=== PATIENT | male | born 1990 | race Two or more races ===

== ENCOUNTER 2022-01-19 21:27 | Inpatient (IN) | payer OTHER, SELFPAY ==
[2022-01-19 21:50] VITALS: BP 155/107; PULSE 89; RESP 16; TEMP 36.6; O2SAT 99; BMI 33.3
--- NOTE | 2022-01-19 22:29 | PC.NURSE ---
Ray Jimenez signed a 3-day notice on 01/19/22 up on 01/24/22.
--- NOTE | 2022-01-19 22:46 | PC.ADMIT ---
Pt is a 32y/o male admitted on CV from [facility] for inpatient level of care. Pt is experiencing increased depression following a recent DC from medical admission on 01/17/22 for Methadone Poisoning. Pt is alert and oriented X3. VSS except elevated BP-155/108, Pt reports his blood pressure has been trending up. Covid negative, Tox screen positive for cannabis. Pt presents with flat mood. Speech is regular with normal rhythm, tone, and candi. Pt reports that he needs help finding providers. Pt denies SI/HI/AH/VH. Admission orders obtained.
[2022-01-20 08:30] LABS: Cholesterol 275 mg/dL; HDL Cholesterol 37 mg/dL; LDL Cholesterol Calculated 215 mg/dl; Magnesium 2.1 mg/dL (1.6-2.6); Triglycerides 118 mg/dL
[2022-01-20 08:40] VITALS: BP 162/105; PULSE 81; RESP 16; TEMP 36.3; O2SAT 96
[2022-01-20] MEDS: hydroCHLOROthiazide 25 MG TABLET PO (08:41)
[2022-01-20] MEDS: QUEtiapine Fumarate 50 MG TABLET PO (08:41)
[2022-01-20] MEDS: Sertraline HCL 25 MG TABLET PO (08:41)
[2022-01-20 08:42] LABS: Estimated Average Glucose 114 mg/dL; Hemoglobin A1c % 5.6 %
[2022-01-20 08:50] LABS: Free T4 (Free Thyroxine) 1.14 ng/dL (0.71-1.85); Thyroid Stimulating Hormone 2.02 uIU/mL (0.32-4.0)
[2022-01-20 09:36] LABS: Folate 5.7 ng/mL (> or = 4.0); Vitamin B12 482 pg/mL (200-900)
--- NOTE | 2022-01-20 11:21 | P.CONIM_ITS ---
History of Present Illness Data of Consult Service Date: 01/20/22 Primary Care Provider: Unknown Physician HPI Reason for consult: Routine Medical H&P This is a 32 yo M who endorses no significant medical history. He is admitted to . Medical consult requested for routine medical H&P. Pt seen and examined in the exam room. His BP has been high since he has been admitted. He denies any symptoms of elevated BP. He reports that his blood pressure is always high, even at doctors office visits. It has been this way for several years. He denies any FH of HTN PMH Denies a diagnosis of HTN, but BP readings elevated previously PSH Denies SH Denies tobacco, alcohol, or current illicit substance use FH Denies history of HTN, particularly at a young age Review of Systems Review of Systems: negative except HPI PMFSH Social History Household Members: Family Housing: Apartment Do you presently have visiting nurse or other home services: No Patient Tobacco Use Status: Former Tobacco user Smoked in Last 30 Days: No e-Cigarette/Vaping Use: Former Use Patient Interested in Nicotine Replacement: No Patient Given Instructions on How to Stop Smoking: Yes Date Education Initiated: 01/19/22 Second Hand Smoke Exposure: No Substance Use Type: Marijuana Substance Use Frequency: Occasionally Last Used Substance: Weeks (ago) Currently Displaying Signs/Symptoms of Drug Intoxication Withdrawal: No Any prior treatment program specific to substance use: No Have you been hit, kicked, punched, or otherwise hurt by someone within the past year? If so, by whom?: No Do you feel safe in your current relationship?: No Current Relationship Is there a partner from a previous relationship who is making you feel unsafe now?: No Are you made to feel afraid or neglected: No Spiritual Healthcare Practices: N/A Cheondoism Healthcare Practices: N/A Cultural Healthcare Practices: N/A Advance Directives: No Advance Directives Information Provided: No Advance Directives on File: No Do you have thoughts of harming others: None Do you have a plan to hurt others: No Plan Recently lost weight without trying: No Eating poorly because of decreased appetite: No Nutrition Risks: No Nutritional Risk Poor oral hygiene: No Meds Allergies Allergy/AdvReac Type Severity Reaction Status Date / Time No Known Allergies Allergy Verified 01/19/22 21:38 Active Medications: Current Medications Acetaminophen (Acetaminophen 325 Mg Tablet) 650 mg PO Q6H PRN PRN Reason: Headache/Pain Mild Scale (1-3) Al Hydroxide/Mg Hydroxide (Magnesium Hydrox/Alum Hydrox 30 Ml Oral.Susp) 30 ml PO Q6H PRN PRN Reason: Heartburn/Nausea Hydrochlorothiazide (Hydrochlorothiazide 25 Mg Tablet) 25 mg PO DAILY [facility]; Protocol Last Admin: 01/20/22 08:41 Dose: 25 mg Documented by: Hydroxyzine HCl (Hydroxyzine Hcl 25 Mg Tablet) 25 mg PO Q6H PRN PRN Reason: Anxiety Magnesium Hydroxide (Milk Of Magnesia 30 Ml Oral.Susp) 30 ml PO DAILY PRN PRN Reason: Constipation Quetiapine Fumarate (Quetiapine Fumarate 50 Mg Tablet) 50 mg PO DAILY [facility] Last Admin: 01/20/22 08:41 Dose: 50 mg Documented by: Sertraline HCl (Sertraline Hcl 25 Mg Tablet) 25 mg PO DAILY [facility] Last Admin: 01/20/22 08:41 Dose: 25 mg Documented by: Trazodone HCl (Trazodone Hcl 50 Mg Tablet) 50 mg PO BEDTIME PRN PRN Reason: Insomnia Home Medications Medication Instructions Recorded Confirmed Last Taken Type hydroxyzine HCl 25 mg tablet 1 tab PO BID PRN 01/19/22 01/19/22 Unknown History quetiapine 100 mg tablet 2 tab PO BEDTIME 01/19/22 01/19/22 Unknown History quetiapine 100 mg tablet (Seroquel) 2 tab PO BEDTIME 01/19/22 01/19/22 Unknown History quetiapine 50 mg tablet 1 tab PO QAM 01/19/22 01/19/22 Unknown History quetiapine 50 mg tablet (Seroquel) 1 tab PO QAM 01/19/22 01/19/22 Unknown History sertraline 25 mg tablet 1 tab PO QAM 01/19/22 01/19/22 Unknown History sertraline 25 mg tablet (Zoloft) 1 tab PO QAM 01/19/22 01/19/22 Unknown History Physical Exam Vital Signs and Narrative: Vital Signs: Last Vital Signs Temp 97.4 F 01/20/22 08:40 Pulse 81 01/20/22 08:40 Resp 16 01/20/22 08:40 BP 162/105 H 01/20/22 08:40 Pulse Ox 96 01/20/22 08:40 BMI result Body Mass Index 33.3 Const: Other: General - no acute distress, appears comfortable Cardiovascular - regular rate and rhythm, S1-S2 Lungs - normal respiratory effort, clear to auscultation bilaterally, no wheezing Abdomen - soft, nontender, no rebound or guarding Extremities - no edema bilaterally Neuro - awake and alert, no focal deficits; cn 2-12 in tact Results Labs Labs: Laboratory Results - last 24 hr 01/20/22 01/20/22 01/20/22 07:57 07:57 07:57 Estimat Average Glucose 114 Hemoglobin A1c % 5.6 Magnesium 2.1 Triglycerides 118 Cholesterol 275 LDL Cholesterol, Calc 215 HDL Cholesterol 37 Vitamin B12 482 Folate 5.7 TSH 2.02 Free T4 1.14 Assessment and Plan (1) Hypertension: Status: Acute Plan 32 yo M who reports no significant medical history admitted to . Medical consult requested for routine medical H&P. 1. Hypertension Pt does not have a prior diagnosis of the same but clearly has elevated readings currently and by his history in the past. He will willing to start Norvasc 5mg. He will need outpatient f/u with a PCP for further monitoring and titration He has also been encouraged to lose weight which will help his BP. Please monitor BP while here and if remains persistently above 140/90 or if he endorses symptoms of BP -- please reconsult. He must f/u with a medical provider once discharged. Will sign off. Please consult PRN. Thank you.
[2022-01-20 12:40] VITALS: BP 134/95; PULSE 104
[2022-01-20] MEDS: amLODIPine Besylate 5 MG TABLET PO (12:42)
--- NOTE | 2022-01-20 16:07 | ECG_ITS ---
Test Reason : cp Blood Pressure : / mmHG Vent. Rate : 109 BPM Atrial Rate : 109 BPM P-R Int : 156 ms QRS Dur : 100 ms QT Int : 364 ms P-R-T Axes : 062 019 045 degrees QTc Int : 490 ms Sinus tachycardia Possible Left atrial enlargement Borderline ECG No previous ECGs available Referred By: Zeus Mckeon Electronically Signed By:DINORAH FULLER
[2022-01-20 16:17] VITALS: BP 120/75; PULSE 138; RESP 16; TEMP 35.9; O2SAT 98
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
--- NOTE | 2022-01-20 16:50 | PM.EVENT ---
Event Note Date of Service: 01/20/22 Event Note: Patient reported to have left side chest pain reported as tightness with associated anxiety and feeling panicky Went to bed to lie down which helped. also received a dose of atarax and symptoms are improving Patient noted to be tachycardic but at time of EKG, HR had improved. EKG reviewed, no ischemic changes, sinus tachycardia Blood pressure under adequate control. no cough. non-pleuritic. reproducible pain on exam. likely r/t anxiety. if chest pain recurs can consider further workup HR improving, but if significant tachycardia persists would consider cbc to rule out anemia. TSH wnl, pt afebrile
[2022-01-20] MEDS: hydrOXYzine HCL 25 MG TABLET PO (17:30)
[2022-01-20 18:17] LABS: Troponin-I High Sensitivity 4.1 ng/L (<3.5-35.0)
[2022-01-20] MEDS: Divalproex Sodium 250 MG TABLET.DR PO (20:01)
[2022-01-21 06:00] VITALS: BP 118/72; PULSE 98; RESP 18; TEMP 36.3; O2SAT 98
[2022-01-21] MEDS: QUEtiapine Fumarate 50 MG TABLET PO (08:19)
[2022-01-21] MEDS: hydroCHLOROthiazide 25 MG TABLET PO (08:19)
[2022-01-21] MEDS: Sertraline HCL 25 MG TABLET PO (08:19)
[2022-01-21] MEDS: amLODIPine Besylate 5 MG TABLET PO (08:19)
[2022-01-21] MEDS: Divalproex Sodium 250 MG TABLET.DR PO ×2 (08:19→20:58)
[2022-01-21 08:27] VITALS: BP 136/73; PULSE 77
--- NOTE | 2022-01-21 08:39 | P.PNPSI_ITS ---
Subjective Subjective Date of Service: 01/21/22 Reason For Visit: Depression Subjective Notes: 3 Day Healthcare Proxy: No Guardianship: No Interim History: Patient was seen and discussed in rounds today. He has been pleasant but isolative. He was started on Depakote. He denies any side effects. Eating and sleeping adequately. No symptoms of psychosis. No complaints. No changes were made today. I may increase his Depakote tomorrow Medication Compliance: Yes Side effects from medications: No Attending Groups: Intermittent Review of Systems Review of Systems Yes all other systems are reviewed and are negative Mental Status Exam Mental Status Exam Narrative: In today's visit he is alert, oriented and pleasant. Speech is soft-spoken. Moderate eye contact. Affect is constricted and flat. Mood is depressed. No acute signs of psychosis. No delusions. No SI upon inquiry. Cognitively he has slow thought processes, circumstantial. Judgment is intact Diagnostics Vital Signs (24Hr): Vital Signs - 24 hr 01/20/22 12:40 01/20/22 16:17 01/21/22 06:00 Temperature 96.7 F L 97.4 F Pulse Rate 104 H 138 H 98 Respiratory Rate 16 18 Blood Pressure 134/95 H 120/75 118/72 Pulse Oximetry 98 98 01/21/22 08:27 Temperature Pulse Rate 77 Respiratory Rate Blood Pressure 136/73 Pulse Oximetry BMI result Body Mass Index 33.3 Labs Labs: Laboratory Results - last 48 hr 01/20/22 01/20/22 01/20/22 07:57 07:57 07:57 Estimat Average Glucose 114 Hemoglobin A1c % 5.6 Magnesium 2.1 Troponin I High Sens Triglycerides 118 Cholesterol 275 LDL Cholesterol, Calc 215 HDL Cholesterol 37 Vitamin B12 482 Folate 5.7 TSH 2.02 Free T4 1.14 01/20/22 17:39 Estimat Average Glucose Hemoglobin A1c % Magnesium Troponin I High Sens 4.1 Triglycerides Cholesterol LDL Cholesterol, Calc HDL Cholesterol Vitamin B12 Folate TSH Free T4 Medications Medications Current Medications Acetaminophen (Acetaminophen 325 Mg Tablet) 650 mg PO Q6H PRN PRN Reason: Headache/Pain Mild Scale (1-3) Al Hydroxide/Mg Hydroxide (Magnesium Hydrox/Alum Hydrox 30 Ml Oral.Susp) 30 ml PO Q6H PRN PRN Reason: Heartburn/Nausea Amlodipine Besylate (Amlodipine Besylate 5 Mg Tablet) 5 mg PO DAILY [facility]; Protocol Last Admin: 01/21/22 08:19 Dose: 5 mg Documented by: Divalproex Sodium (Divalproex Sodium 250 Mg Tablet.) 250 mg PO BID [facility] Last Admin: 01/21/22 08:19 Dose: 250 mg Documented by: Hydrochlorothiazide (Hydrochlorothiazide 25 Mg Tablet) 25 mg PO DAILY [facility]; Protocol Last Admin: 01/21/22 08:19 Dose: 25 mg Documented by: Hydroxyzine HCl (Hydroxyzine Hcl 25 Mg Tablet) 25 mg PO Q6H PRN PRN Reason: Anxiety Last Admin: 01/20/22 17:30 Dose: 25 mg Documented by: Lorazepam (Lorazepam 0.5 Mg Tablet) 0.5 mg PO Q4H PRN PRN Reason: Anxiety Magnesium Hydroxide (Milk Of Magnesia 30 Ml Oral.Susp) 30 ml PO DAILY PRN PRN Reason: Constipation Quetiapine Fumarate (Quetiapine Fumarate 50 Mg Tablet) 50 mg PO DAILY [facility] Last Admin: 01/21/22 08:19 Dose: 50 mg Documented by: Sertraline HCl (Sertraline Hcl 25 Mg Tablet) 25 mg PO DAILY [facility] Last Admin: 01/21/22 08:19 Dose: 25 mg Documented by: Trazodone HCl (Trazodone Hcl 50 Mg Tablet) 50 mg PO BEDTIME PRN PRN Reason: Insomnia Allergies Allergies Allergy/AdvReac Type Severity Reaction Status Date / Time No Known Allergies Allergy Verified 01/19/22 21:38 Assessment & Plan Assessment & Plan (1) Bipolar disorder: Status: Acute Code(s): F31.9 - Bipolar disorder, unspecified Plan 32 yo male with hx of bipolar disorder with increased sx of depression over the past two months, since 6 year relationship ended with girlfriend. Recently seen by crisis and was waiting for CSS in the living room. Became confused and went to a [facility], responded to anothers name and took Methadone for the first time, requiring medical hospitalization for Methadone poisoning. Today, pt is exhibiting sadness, tearful at times, crying at times and later today with reports of chest pain. Plan: Continue current regime Lorazepam prn Depakote 250 mg bid 01/21/2022: Continue current regimen and plans. I may increase his Depakote tomorrow I spent minutes with the patient and/or on the patient floor today, greater than?50% of which was spent counseling/coordinating care. Reason for contiued inpatient stay Substantial Risk for: med/psych decompensation
[2022-01-21 14:17] LABS: Troponin-I High Sensitivity < 3.5 ng/L (<3.5-35.0)
[2022-01-21 20:50] VITALS: BP 144/86; PULSE 106; TEMP 36.6
[2022-01-22] MEDS: Divalproex Sodium 250 MG TABLET.DR PO (09:00)
[2022-01-22] MEDS: hydroCHLOROthiazide 25 MG TABLET PO (09:01)
[2022-01-22] MEDS: amLODIPine Besylate 5 MG TABLET PO (09:01)
[2022-01-22] MEDS: QUEtiapine Fumarate 50 MG TABLET PO (09:01)
[2022-01-22] MEDS: Sertraline HCL 25 MG TABLET PO (09:02)
[2022-01-22 09:20] VITALS: BP 133/91; PULSE 95; TEMP 36.4; O2SAT 96
--- NOTE | 2022-01-22 09:36 | P.PNPSI_ITS ---
Subjective Subjective Date of Service: 01/22/22 Reason For Visit: Depression Subjective Notes: 3 Day Healthcare Proxy: No Guardianship: No Medical Problems Affecting Mental Status: No Interim History: Patient was seen and discussed in rounds today. Records and plans were reviewed. He continues to be somewhat isolative and have some anxiety. He states that he is not crying much anymore and feels a little more ?balanced?. He asked about his 3 day notice but states that he would stay longer if recommended. He will discuss this with his treatment team tomorrow. He denies any side effects. Eating and sleeping adequately. I increased his Zoloft to 50 mg Review of Systems Review of Systems Yes all other systems are reviewed and are negative Mental Status Exam Mental Status Exam Narrative: In today's visit he is alert, oriented and pleasant. Speech is soft-spoken. Bettereye contact. Affect is constricted and flat. Mood is less depressed. No acute signs of psychosis. No delusions. No SI upon inquiry. Cognitively he has slow thought processes, circumstantial. Judgment is intact Diagnostics Vital Signs (24Hr): Vital Signs - 24 hr 01/21/22 20:50 01/22/22 09:20 Temperature 97.8 F 97.6 F Pulse Rate 106 H 95 Blood Pressure 144/86 H 133/91 H Pulse Oximetry 96 BMI result Body Mass Index 33.3 Labs Labs: Laboratory Results - last 48 hr 01/20/22 01/20/22 01/21/22 07:57 17:39 13:48 Troponin I High Sens 4.1 < 3.5 Vitamin B12 482 Folate 5.7 Medications Medications Current Medications Acetaminophen (Acetaminophen 325 Mg Tablet) 650 mg PO Q6H PRN PRN Reason: Headache/Pain Mild Scale (1-3) Al Hydroxide/Mg Hydroxide (Magnesium Hydrox/Alum Hydrox 30 Ml Oral.Susp) 30 ml PO Q6H PRN PRN Reason: Heartburn/Nausea Amlodipine Besylate (Amlodipine Besylate 5 Mg Tablet) 5 mg PO DAILY [facility]; Protocol Last Admin: 01/22/22 09:01 Dose: 5 mg Documented by: Divalproex Sodium (Divalproex Sodium 250 Mg Tablet.) 250 mg PO BID [facility] Last Admin: 01/22/22 09:00 Dose: 250 mg Documented by: Hydrochlorothiazide (Hydrochlorothiazide 25 Mg Tablet) 25 mg PO DAILY [facility]; Protocol Last Admin: 01/22/22 09:01 Dose: 25 mg Documented by: Hydroxyzine HCl (Hydroxyzine Hcl 25 Mg Tablet) 25 mg PO Q6H PRN PRN Reason: Anxiety Last Admin: 01/20/22 17:30 Dose: 25 mg Documented by: Lorazepam (Lorazepam 0.5 Mg Tablet) 0.5 mg PO Q4H PRN PRN Reason: Anxiety Magnesium Hydroxide (Milk Of Magnesia 30 Ml Oral.Susp) 30 ml PO DAILY PRN PRN Reason: Constipation Quetiapine Fumarate (Quetiapine Fumarate 50 Mg Tablet) 50 mg PO DAILY [facility] Last Admin: 01/22/22 09:01 Dose: 50 mg Documented by: Sertraline HCl (Sertraline Hcl 25 Mg Tablet) 25 mg PO DAILY [facility] Last Admin: 01/22/22 09:02 Dose: 25 mg Documented by: Trazodone HCl (Trazodone Hcl 50 Mg Tablet) 50 mg PO BEDTIME PRN PRN Reason: Insomnia Allergies Allergies Allergy/AdvReac Type Severity Reaction Status Date / Time No Known Allergies Allergy Verified 01/19/22 21:38 Assessment & Plan Assessment & Plan (1) Bipolar disorder: Status: Acute Code(s): F31.9 - Bipolar disorder, unspecified Plan 32 yo male with hx of bipolar disorder with increased sx of depression over the past two months, since 6 year relationship ended with girlfriend. Recently seen by crisis and was waiting for CSS in the living room. Became confused and went to a [facility], responded to anothers name and took Methadone for the first time, requiring medical hospitalization for Methadone poisoning. Today, pt is exhibiting sadness, tearful at times, crying at times and later today with reports of chest pain. Plan: Continue current regime Lorazepam prn Depakote 250 mg bid 01/21/2022: Continue current regimen and plans. I may increase his Depakote tomorrow 01/22/2022: Continue current regimen and plans. Increase Zoloft to 50 mg and Depakote to 750 mg q.h.s. I spent minutes with the patient and/or on the patient floor today, greater than?50% of which was spent counseling/coordinating care. Patient educated on: medication risk/benefits Reason for contiued inpatient stay Substantial Risk for: med/psych decompensation
[2022-01-22 10:24] LABS: Valproate 22.9 mcg/mL (50.0-100.0)
[2022-01-22 18:00] VITALS: BP 115/68; PULSE 102; TEMP 36.7
[2022-01-22] MEDS: Divalproex Sodium 250 MG TABLET.DR 750 MG PO (20:11)
[2022-01-22] MEDS: traZODone HCL 50 MG TABLET PO (20:29)
[2022-01-23 06:00] VITALS: BP 129/76; PULSE 81; RESP 16; TEMP 36.6; O2SAT 99
[2022-01-23] MEDS: hydroCHLOROthiazide 25 MG TABLET PO (08:35)
[2022-01-23] MEDS: QUEtiapine Fumarate 50 MG TABLET PO (08:35)
[2022-01-23] MEDS: amLODIPine Besylate 5 MG TABLET PO (08:35)
[2022-01-23] MEDS: Sertraline HCL 50 MG TABLET PO (08:35)
--- NOTE | 2022-01-23 17:15 | HO.PSYCHPN ---
Subjective Subjective Date of Service: 01/23/22 Reason For Visit: Depression Interim History: Patient seen and discussed with team. Patient evaluated today and upon interview he reports the depakote is jie too strong, but he does admit he has been sleeping more with it, getting 8-10 hours, and that he spent too many days without sleeping prior to admission and he became another person. Willing to give it time on current depakote dose, will monitor for sedation. Says he is feeling less anxiety than what i used to have. Pt does report there?s one that makes me tired in the morning, would like to trial off seroquel 50 mg QAM.?VPA level was 22.9 on 01/22/22. In the milieu, patient is safe and appropriate in behavior. Says he feels safe. Medication Compliance: Yes Side effects from medications: Yes Attending Groups: Intermittent Review of Systems Acute medical concerns: No Medical Review of Systems: unchanged Mental Status Exam Mental Status Exam Narrative: Patient Appearance:?Appropriate Patient Orientation:?Person, Place, Time and Situation Level of Consciousness:?Alert Patient Behavior:?Talkative, Cooperative, Anxious, Distractible and Good Eye Contact Mood Description:?Depressed, Anxious and Sad Affect Description:?Flat Patient Cognition Impaired:?No Ability to Follow Directions:?Good Speech Pattern:?Spontaneous Speech Memory Description:?Remote Impaired and Episodic Impaired Hallucinations:?None Delusions:?Not Present Perceptual Disturbances:?Depersonalization and Derealization Thought Process:?Rumination Thought Content:?positive for [place], positive for Circumstantial and positive for Suicidal Ideation Depressive Symptoms:?Increased Anxiety, Insomnia, Diff. Making Decisions, Difficulty Sleeping, Changes in Appetite, Loss of Int. in Activity, Feelings of Worthlessness, Hopelessness, Isolating-Friends/Family, Feelings of Guilt, Unhappiness, Increased Fatigue, Thoughts of /Suicide, Low Self Esteem, Loss of Energy and Difficulty Concentrating Judgement:?Fair Diagnostics Vital Signs (24Hr): Vital Signs - 24 hr 01/22/22 18:00 01/23/22 06:00 Temperature 98.1 F 98 F Pulse Rate 102 H 81 Respiratory Rate 16 Blood Pressure 115/68 129/76 Pulse Oximetry 99 BMI result Body Mass Index 33.3 Labs Labs: Laboratory Results - last 48 hr 01/22/22 09:57 Valproic Acid 22.9 L Medications Medications Current Medications Acetaminophen (Acetaminophen 325 Mg Tablet) 650 mg PO Q6H PRN PRN Reason: Headache/Pain Mild Scale (1-3) Al Hydroxide/Mg Hydroxide (Magnesium Hydrox/Alum Hydrox 30 Ml Oral.Susp) 30 ml PO Q6H PRN PRN Reason: Heartburn/Nausea Amlodipine Besylate (Amlodipine Besylate 5 Mg Tablet) 5 mg PO DAILY [facility]; Protocol Last Admin: 01/23/22 08:35 Dose: 5 mg Documented by: Divalproex Sodium (Divalproex Sodium 250 Mg Tablet.) 750 mg PO BEDTIME [facility] Last Admin: 01/22/22 20:11 Dose: 750 mg Documented by: Hydrochlorothiazide (Hydrochlorothiazide 25 Mg Tablet) 25 mg PO DAILY [facility]; Protocol Last Admin: 01/23/22 08:35 Dose: 25 mg Documented by: Hydroxyzine HCl (Hydroxyzine Hcl 25 Mg Tablet) 25 mg PO Q6H PRN PRN Reason: Anxiety Last Admin: 01/20/22 17:30 Dose: 25 mg Documented by: Lorazepam (Lorazepam 0.5 Mg Tablet) 0.5 mg PO Q4H PRN PRN Reason: Anxiety Magnesium Hydroxide (Milk Of Magnesia 30 Ml Oral.Susp) 30 ml PO DAILY PRN PRN Reason: Constipation Quetiapine Fumarate (Quetiapine Fumarate 50 Mg Tablet) 50 mg PO DAILY [facility] Last Admin: 01/23/22 08:35 Dose: 50 mg Documented by: Sertraline HCl (Sertraline Hcl 50 Mg Tablet) 50 mg PO DAILY [facility] Last Admin: 01/23/22 08:35 Dose: 50 mg Documented by: Trazodone HCl (Trazodone Hcl 50 Mg Tablet) 50 mg PO BEDTIME PRN PRN Reason: Insomnia Last Admin: 01/22/22 20:29 Dose: 50 mg Documented by: Allergies Allergies Allergy/AdvReac Type Severity Reaction Status Date / Time No Known Allergies Allergy Verified 01/19/22 21:38 Assessment & Plan Assessment & Plan (1) Bipolar disorder: Status: Acute Code(s): F31.9 - Bipolar disorder, unspecified Plan 32 yo male with hx of bipolar disorder with increased sx of depression over the past two months, since 6 year relationship ended with girlfriend. Recently seen by crisis and was waiting for CSS in the living room. Became confused and went to a [facility], responded to anothers name and took Methadone for the first time, requiring medical hospitalization for Methadone poisoning. Today, pt is exhibiting sadness, tearful at times, crying at times and later today with reports of chest pain. Plan: Continue current regime Lorazepam prn Depakote 250 mg bid 01/21/2022: Continue current regimen and plans. I may increase his Depakote tomorrow 01/22/2022: Continue current regimen and plans. Increase Zoloft to 50 mg and Depakote to 750 mg q.h.s. 01/23/2022: Continue current plan. Discontinue seroquel 50 mg QD due to pt reporting sedation. I spent minutes with the patient and/or on the patient floor today, greater than?50% of which was spent counseling/coordinating care. Patient educated on: medication risk/benefits Reason for contiued inpatient stay Substantial Risk for: rapid decompensation and med/psych decompensation
[2022-01-23 18:00] VITALS: BP 130/76; PULSE 92; RESP 16; TEMP 36.5
[2022-01-23] MEDS: Divalproex Sodium 250 MG TABLET.DR 750 MG PO (20:06)
[2022-01-24 06:00] VITALS: BP 146/83; PULSE 81; RESP 16; TEMP 36.2; O2SAT 97
[2022-01-24] MEDS: Sertraline HCL 50 MG TABLET PO (08:07)
[2022-01-24] MEDS: hydroCHLOROthiazide 25 MG TABLET PO (08:07)
[2022-01-24] MEDS: QUEtiapine Fumarate 25 MG TABLET PO (08:07)
[2022-01-24] MEDS: amLODIPine Besylate 5 MG TABLET PO (08:07)
--- NOTE | 2022-01-24 18:41 | P.PNPSI_ITS ---
Subjective Subjective Date of Service: 01/24/22 Reason For Visit: Depression Interim History: Patient seen and discussed with team. Patient evaluated today and upon interview he reports it went well for me today, sedation is better off seroquel. Says he is feeling down, but not depressed. Says he is sleeping better at the hospital, thinks this helps, say he feels he is getting back to himself. He endorses some delusional, bizarre believes, i.e. says it feels like clara a couple times. He is also laughing incongruently. Says he wants to get his mind straight. Pt reports I jie dont like zoloft. In the milieu, patient is safe, more visible in the milieu. Denies SI/SIB/HI upon inquiry. Denies irritability or assaultive ideation. Says he feels safe. Medication Compliance: Yes Side effects from medications: No Attending Groups: Intermittent Review of Systems Acute medical concerns: No Medical Review of Systems: unchanged Mental Status Exam Mental Status Exam Narrative: Patient Appearance:?Appropriate Patient Orientation:?Person, Place, Time and Situation Level of Consciousness:?Alert Patient Behavior:?Appropriate, Talkative, Cooperative and Good Eye Contact Mood Description:?Apprehensive Affect Description:?Constricted Patient Cognition Impaired:?No Ability to Follow Directions:?Good Speech Pattern:?Spontaneous Speech Memory Description:?Intact Hallucinations:?None Delusions:?Not Present Thought Process:?Intact and Goal Oriented Thought Content:?positive for Intact and positive for Goal Oriented Judgment:?Good Diagnostics Vital Signs (24Hr): Vital Signs - 24 hr 01/24/22 06:00 Temperature 97.2 F Pulse Rate 81 Respiratory Rate 16 Blood Pressure 146/83 H Pulse Oximetry 97 BMI result Body Mass Index 33.3 Medications Medications Current Medications Acetaminophen (Acetaminophen 325 Mg Tablet) 650 mg PO Q6H PRN PRN Reason: Headache/Pain Mild Scale (1-3) Al Hydroxide/Mg Hydroxide (Magnesium Hydrox/Alum Hydrox 30 Ml Oral.Susp) 30 ml PO Q6H PRN PRN Reason: Heartburn/Nausea Amlodipine Besylate (Amlodipine Besylate 5 Mg Tablet) 5 mg PO DAILY [facility]; Protocol Last Admin: 01/24/22 08:07 Dose: 5 mg Documented by: Divalproex Sodium (Divalproex Sodium 250 Mg Tablet.) 750 mg PO BEDTIME [facility] Last Admin: 01/23/22 20:06 Dose: 750 mg Documented by: Hydrochlorothiazide (Hydrochlorothiazide 25 Mg Tablet) 25 mg PO DAILY [facility]; Protocol Last Admin: 01/24/22 08:07 Dose: 25 mg Documented by: Hydroxyzine HCl (Hydroxyzine Hcl 25 Mg Tablet) 25 mg PO Q6H PRN PRN Reason: Anxiety Last Admin: 01/20/22 17:30 Dose: 25 mg Documented by: Lorazepam (Lorazepam 0.5 Mg Tablet) 0.5 mg PO Q4H PRN PRN Reason: Anxiety Magnesium Hydroxide (Milk Of Magnesia 30 Ml Oral.Susp) 30 ml PO DAILY PRN PRN Reason: Constipation Quetiapine Fumarate (Quetiapine Fumarate 25 Mg Tablet) 25 mg PO DAILY [facility] Last Admin: 01/24/22 08:07 Dose: 25 mg Documented by: Sertraline HCl (Sertraline Hcl 50 Mg Tablet) 50 mg PO DAILY [facility] Last Admin: 01/24/22 08:07 Dose: 50 mg Documented by: Trazodone HCl (Trazodone Hcl 50 Mg Tablet) 50 mg PO BEDTIME PRN PRN Reason: Insomnia Last Admin: 01/22/22 20:29 Dose: 50 mg Documented by: Allergies Allergies Allergy/AdvReac Type Severity Reaction Status Date / Time No Known Allergies Allergy Verified 01/19/22 21:38 Assessment & Plan Assessment & Plan (1) Bipolar disorder: Status: Acute Code(s): F31.9 - Bipolar disorder, unspecified Plan 32 yo male with hx of bipolar disorder with increased sx of depression over the past two months, since 6 year relationship ended with girlfriend. Recently seen by crisis and was waiting for CSS in the living room. Became confused and went to a [facility], responded to anothers name and took Methadone for the first time, requiring medical hospitalization for Methadone poisoning. Today, pt is exhibiting sadness, tearful at times, crying at times and later today with reports of chest pain. Plan: Continue current regime Lorazepam prn Depakote 250 mg bid 01/21/2022: Continue current regimen and plans. I may increase his Depakote tomorrow 01/22/2022: Continue current regimen and plans. Increase Zoloft to 50 mg and Depakote to 750 mg q.h.s. 01/23/2022: Continue current plan. Discontinue seroquel 50 mg QD due to pt reporting sedation. 01/24/2022: Discontinue zoloft 50 mg per pt request, may also be activating. Will start risperdal 0.5 mg BID to target delusional, bizarre thought content, hx of psychotic episode and paranoia. I spent minutes with the patient and/or on the patient floor today, greater than?50% of which was spent counseling/coordinating care. Patient educated on: medication risk/benefits Reason for contiued inpatient stay Substantial Risk for: inability to function, rapid decompensation and med/psych decompensation
[2022-01-24] MEDS: Divalproex Sodium 250 MG TABLET.DR 750 MG PO (20:46)
[2022-01-24] MEDS: traZODone HCL 50 MG TABLET PO (20:47)
[2022-01-24] MEDS: risperiDONE 0.5 MG TABLET PO (20:47)
[2022-01-24 20:55] VITALS: BP 148/90; PULSE 95; TEMP 35.7; O2SAT 96
[2022-01-25] MEDS: hydroCHLOROthiazide 25 MG TABLET PO (08:37)
[2022-01-25] MEDS: risperiDONE 0.5 MG TABLET PO (08:37)
[2022-01-25] MEDS: amLODIPine Besylate 5 MG TABLET PO (08:38)
[2022-01-25 08:39] VITALS: BP 128/75; PULSE 77; RESP 18; TEMP 36.3; O2SAT 99
[2022-01-25 21:00] VITALS: BP 139/85; PULSE 116; TEMP 36.2; O2SAT 98
[2022-01-25] MEDS: Divalproex Sodium 250 MG TABLET.DR 750 MG PO (21:39)
[2022-01-25] MEDS: risperiDONE 1 MG TABLET PO (21:40)
--- NOTE | 2022-01-26 00:21 | P.PNPSI_ITS ---
Subjective Subjective Date of Service: 01/25/22 Reason For Visit: Depression Interim History: Patient seen and discussed with team. Patient evaluated today and upon interview he reports it is going alright. On risperdal 0.5 mg BID, denies SE, I dont feel anything. Denies withdrawal off sertraline. Says he is thinking more straight now, Feels he can chill for a moment. Energy is better. Still feels a little bit depressed. Says if he is not doing anything or keeping busy, he feels worse.? In the milieu, patient is safe and more visible in the milieu. Says he feels safe. Medication Compliance: Yes Side effects from medications: No Attending Groups: Intermittent Review of Systems Acute medical concerns: No Medical Review of Systems: unchanged Mental Status Exam Mental Status Exam Narrative: Patient Appearance:?Appropriate Patient Orientation:?Person, Place, Time and Situation Level of Consciousness:?Alert Patient Behavior:?Appropriate, Talkative, Cooperative and Good Eye Contact Mood Description:?Apprehensive Affect Description:?Constricted Patient Cognition Impaired:?No Ability to Follow Directions:?Good Speech Pattern:?Spontaneous Speech Memory Description:?Intact Hallucinations:?None Delusions:?Not Present Thought Process:?Intact and Goal Oriented Thought Content:?positive for Intact and positive for Goal Oriented Judgment:?Good Diagnostics Vital Signs (24Hr): Vital Signs - 24 hr 01/25/22 08:39 Temperature 97.4 F Pulse Rate 77 Respiratory Rate 18 Blood Pressure 128/75 Pulse Oximetry 99 BMI result Body Mass Index 33.3 Medications Medications Current Medications Acetaminophen (Acetaminophen 325 Mg Tablet) 650 mg PO Q6H PRN PRN Reason: Headache/Pain Mild Scale (1-3) Al Hydroxide/Mg Hydroxide (Magnesium Hydrox/Alum Hydrox 30 Ml Oral.Susp) 30 ml PO Q6H PRN PRN Reason: Heartburn/Nausea Amlodipine Besylate (Amlodipine Besylate 5 Mg Tablet) 5 mg PO DAILY [facility]; Protocol Last Admin: 01/25/22 08:38 Dose: 5 mg Documented by: Divalproex Sodium (Divalproex Sodium 250 Mg Tablet.) 750 mg PO BEDTIME [facility] Last Admin: 01/25/22 21:39 Dose: 750 mg Documented by: Hydrochlorothiazide (Hydrochlorothiazide 25 Mg Tablet) 25 mg PO DAILY [facility]; Protocol Last Admin: 01/25/22 08:37 Dose: 25 mg Documented by: Hydroxyzine HCl (Hydroxyzine Hcl 25 Mg Tablet) 25 mg PO Q6H PRN PRN Reason: Anxiety Last Admin: 01/20/22 17:30 Dose: 25 mg Documented by: Loperamide HCl (Loperamide Hcl 2 Mg Capsule) 2 mg PO Q6H PRN PRN Reason: diarrhea Magnesium Hydroxide (Milk Of Magnesia 30 Ml Oral.Susp) 30 ml PO DAILY PRN PRN Reason: Constipation Risperidone (Risperidone 1 Mg Tablet) 1 mg PO BEDTIME [facility] Last Admin: 01/25/22 21:40 Dose: 1 mg Documented by: Risperidone (Risperidone 0.5 Mg Tablet) 0.5 mg PO DAILY [facility] Trazodone HCl (Trazodone Hcl 50 Mg Tablet) 50 mg PO BEDTIME PRN PRN Reason: Insomnia Last Admin: 01/24/22 20:47 Dose: 50 mg Documented by: Allergies Allergies Allergy/AdvReac Type Severity Reaction Status Date / Time No Known Allergies Allergy Verified 01/19/22 21:38 Assessment & Plan Assessment & Plan (1) Bipolar disorder: Status: Acute Code(s): F31.9 - Bipolar disorder, unspecified Plan 32 yo male with hx of bipolar disorder with increased sx of depression over the past two months, since 6 year relationship ended with girlfriend. Recently seen by crisis and was waiting for CSS in the living room. Became confused and went to a [facility], responded to anothers name and took Methadone for the first time, requiring medical hospitalization for Methadone poisoning. Today, pt is exhibiting sadness, tearful at times, crying at times and later today with reports of chest pain. Plan: Continue current regime Lorazepam prn Depakote 250 mg bid 01/21/2022: Continue current regimen and plans. I may increase his Depakote tomorrow 01/22/2022: Continue current regimen and plans. Increase Zoloft to 50 mg and Depakote to 750 mg q.h.s. 01/23/2022: Continue current plan. Discontinue seroquel 50 mg QD due to pt reporting sedation. 01/24/2022: Discontinue zoloft 50 mg per pt request, may also be activating. Will start risperdal 0.5 mg BID to target delusional, bizarre thought content, hx of psychotic episode and paranoia. 01/25/2022: Increase ripserdal to 0.5 mg QAM and 1 mg QHS to target delusional thought content. I spent minutes with the patient and/or on the patient floor today, greater than?50% of which was spent counseling/coordinating care. Patient educated on: medication risk/benefits Reason for contiued inpatient stay Substantial Risk for: inability to function, rapid decompensation and med/psych decompensation
[2022-01-26 08:45] VITALS: BP 127/76; PULSE 98; TEMP 36.3
[2022-01-26] MEDS: hydroCHLOROthiazide 25 MG TABLET PO (09:07)
[2022-01-26] MEDS: amLODIPine Besylate 5 MG TABLET PO (09:08)
[2022-01-26] MEDS: risperiDONE 0.5 MG TABLET PO (09:08)
--- NOTE | 2022-01-26 15:36 | HO.PSYCHPN ---
Subjective Subjective Date of Service: 01/26/22 Reason For Visit: Depression Subjective Notes: Conditional Voluntary Healthcare Proxy: No Guardianship: No Medical Problems Affecting Mental Status: No Interim History: Reports feeling improved however with mid-day and afternoon breakthrough sx of lability. Discussed titration of Risperdal and Valproate. Medication Compliance: Yes Side effects from medications: No Attending Groups: Intermittent Review of Systems Acute medical concerns: No Medical Review of Systems: unchanged Review of Systems Psychiatric: Reports irritability and Reports mood swings Mental Status Exam Mental Status Exam Patient Appearance: Appropriate Patient Orientation: Person, Place, Time and Situation Level of Consciousness: Alert Patient Behavior: Appropriate, Talkative, Cooperative and Good Eye Contact Mood Description: Apprehensive Affect Description: Constricted Patient Cognition Impaired: No Ability to Follow Directions: Good Speech Pattern: Spontaneous Speech Memory Description: Intact Hallucinations: None Delusions: Not Present Thought Process: Intact and Goal Oriented Thought Content: positive for Intact and positive for Goal Oriented Judgement: Good Diagnostics Vital Signs (24Hr): Vital Signs - 24 hr 01/25/22 21:00 01/26/22 08:45 Temperature 97.2 F 97.3 F Pulse Rate 116 H 98 Blood Pressure 139/85 127/76 Pulse Oximetry 98 BMI result Body Mass Index 33.3 Medications Medications Current Medications Acetaminophen (Acetaminophen 325 Mg Tablet) 650 mg PO Q6H PRN PRN Reason: Headache/Pain Mild Scale (1-3) Al Hydroxide/Mg Hydroxide (Magnesium Hydrox/Alum Hydrox 30 Ml Oral.Susp) 30 ml PO Q6H PRN PRN Reason: Heartburn/Nausea Amlodipine Besylate (Amlodipine Besylate 5 Mg Tablet) 5 mg PO DAILY [facility]; Protocol Last Admin: 01/26/22 09:08 Dose: 5 mg Documented by: Divalproex Sodium (Divalproex Sodium 250 Mg Tablet.) 750 mg PO BEDTIME [facility] Last Admin: 01/25/22 21:39 Dose: 750 mg Documented by: Hydrochlorothiazide (Hydrochlorothiazide 25 Mg Tablet) 25 mg PO DAILY [facility]; Protocol Last Admin: 01/26/22 09:07 Dose: 25 mg Documented by: Hydroxyzine HCl (Hydroxyzine Hcl 25 Mg Tablet) 25 mg PO Q6H PRN PRN Reason: Anxiety Last Admin: 01/20/22 17:30 Dose: 25 mg Documented by: Loperamide HCl (Loperamide Hcl 2 Mg Capsule) 2 mg PO Q6H PRN PRN Reason: diarrhea Magnesium Hydroxide (Milk Of Magnesia 30 Ml Oral.Susp) 30 ml PO DAILY PRN PRN Reason: Constipation Risperidone (Risperidone 1 Mg Tablet) 1 mg PO BEDTIME [facility] Last Admin: 01/25/22 21:40 Dose: 1 mg Documented by: Risperidone (Risperidone 0.5 Mg Tablet) 0.5 mg PO DAILY [facility] Last Admin: 01/26/22 09:08 Dose: 0.5 mg Documented by: Trazodone HCl (Trazodone Hcl 50 Mg Tablet) 50 mg PO BEDTIME PRN PRN Reason: Insomnia Last Admin: 01/24/22 20:47 Dose: 50 mg Documented by: Allergies Allergies Allergy/AdvReac Type Severity Reaction Status Date / Time No Known Allergies Allergy Verified 01/19/22 21:38 Assessment & Plan Assessment & Plan (1) Bipolar disorder: Status: Acute Code(s): F31.9 - Bipolar disorder, unspecified Plan 32 yo male with hx of bipolar disorder with increased sx of depression over the past two months, since 6 year relationship ended with girlfriend. Recently seen by crisis and was waiting for CSS in the living room. Became confused and went to a [facility], responded to anothers name and took Methadone for the first time, requiring medical hospitalization for Methadone poisoning. Today, pt is exhibiting sadness, tearful at times, crying at times and later today with reports of chest pain. Plan: Continue current regime Lorazepam prn Depakote 250 mg bid 01/21/2022: Continue current regimen and plans. I may increase his Depakote tomorrow 01/22/2022: Continue current regimen and plans. Increase Zoloft to 50 mg and Depakote to 750 mg q.h.s. 01/23/2022: Continue current plan. Discontinue seroquel 50 mg QD due to pt reporting sedation. 01/26/22: Increase Risperdal to 1 mg bid and add Valproate 500 mg a.m. I spent minutes with the patient and/or on the patient floor today, greater than?50% of which was spent counseling/coordinating care. Patient educated on: medication risk/benefits and therapeutic strategies Informed Consent: understands and further education needed Reason for contiued inpatient stay Substantial Risk for: rapid decompensation
[2022-01-26 20:14] VITALS: BP 162/90; PULSE 94
[2022-01-26] MEDS: Divalproex Sodium 250 MG TABLET.DR 750 MG PO (20:18)
[2022-01-26] MEDS: risperiDONE 1 MG TABLET PO (20:19)
[2022-01-27 06:00] VITALS: BP 121/73; PULSE 107; RESP 16; TEMP 36.3; O2SAT 95
[2022-01-27] MEDS: Divalproex Sodium 500 MG TABLET.DR PO (09:07)
[2022-01-27] MEDS: risperiDONE 1 MG TABLET PO ×2 (09:07→19:50)
[2022-01-27] MEDS: amLODIPine Besylate 5 MG TABLET PO (09:07)
[2022-01-27] MEDS: hydroCHLOROthiazide 25 MG TABLET PO (09:07)
[2022-01-27] MEDS: Loperamide HCl 2 MG CAPSULE PO ×2 (16:28→22:45)
[2022-01-27 19:16] VITALS: BP 118/77; PULSE 107
--- NOTE | 2022-01-27 19:30 | P.PNPSI_ITS ---
Subjective Subjective Date of Service: 01/27/22 Reason For Visit: Depression Subjective Notes: Conditional Voluntary Healthcare Proxy: No Guardianship: No Medical Problems Affecting Mental Status: No Interim History: Reports tolerating medication increases. Planning discharge for 01/30. Denies current SE. Medication Compliance: Yes Side effects from medications: No (adjusting to increase in dosing from 01/26/22) Attending Groups: Yes Review of Systems Acute medical concerns: No Medical Review of Systems: unchanged Review of Systems Psychiatric: Reports irritability and Reports mood swings Mental Status Exam Mental Status Exam Patient Appearance: Appropriate Patient Orientation: Person, Place, Time and Situation Level of Consciousness: Alert Patient Behavior: Appropriate, Talkative, Cooperative and Good Eye Contact Mood Description: Apprehensive Affect Description: Constricted Patient Cognition Impaired: No Ability to Follow Directions: Good Speech Pattern: Spontaneous Speech Memory Description: Intact Hallucinations: None Delusions: Not Present Thought Process: Intact and Goal Oriented Thought Content: positive for Intact and positive for Goal Oriented Judgement: Good Diagnostics Vital Signs (24Hr): Vital Signs - 24 hr 01/26/22 20:14 01/27/22 06:00 01/27/22 19:16 Temperature 97.4 F Pulse Rate 94 107 H 107 H Respiratory Rate 16 Blood Pressure 162/90 H 121/73 118/77 Pulse Oximetry 95 BMI result Body Mass Index 33.3 Medications Medications Current Medications Acetaminophen (Acetaminophen 325 Mg Tablet) 650 mg PO Q6H PRN PRN Reason: Headache/Pain Mild Scale (1-3) Al Hydroxide/Mg Hydroxide (Magnesium Hydrox/Alum Hydrox 30 Ml Oral.Susp) 30 ml PO Q6H PRN PRN Reason: Heartburn/Nausea Amlodipine Besylate (Amlodipine Besylate 5 Mg Tablet) 5 mg PO DAILY [facility]; Protocol Last Admin: 01/27/22 09:07 Dose: 5 mg Documented by: Divalproex Sodium (Divalproex Sodium 250 Mg Tablet.) 750 mg PO BEDTIME [facility] Last Admin: 01/26/22 20:18 Dose: 750 mg Documented by: Divalproex Sodium (Divalproex Sodium 500 Mg Tablet.) 500 mg PO DAILY [facility] Last Admin: 01/27/22 09:07 Dose: 500 mg Documented by: Hydrochlorothiazide (Hydrochlorothiazide 25 Mg Tablet) 25 mg PO DAILY [facility]; Protocol Last Admin: 01/27/22 09:07 Dose: 25 mg Documented by: Hydroxyzine HCl (Hydroxyzine Hcl 25 Mg Tablet) 25 mg PO Q6H PRN PRN Reason: Anxiety Last Admin: 01/20/22 17:30 Dose: 25 mg Documented by: Loperamide HCl (Loperamide Hcl 2 Mg Capsule) 2 mg PO Q6H PRN PRN Reason: diarrhea Last Admin: 01/27/22 16:28 Dose: 2 mg Documented by: Magnesium Hydroxide (Milk Of Magnesia 30 Ml Oral.Susp) 30 ml PO DAILY PRN PRN Reason: Constipation Risperidone (Risperidone 1 Mg Tablet) 1 mg PO BID [facility] Last Admin: 01/27/22 09:07 Dose: 1 mg Documented by: Trazodone HCl (Trazodone Hcl 50 Mg Tablet) 50 mg PO BEDTIME PRN PRN Reason: Insomnia Last Admin: 01/24/22 20:47 Dose: 50 mg Documented by: Allergies Allergies Allergy/AdvReac Type Severity Reaction Status Date / Time No Known Allergies Allergy Verified 01/19/22 21:38 Assessment & Plan Assessment & Plan (1) Bipolar disorder: Status: Acute Code(s): F31.9 - Bipolar disorder, unspecified Plan 32 yo male with hx of bipolar disorder with increased sx of depression over the past two months, since 6 year relationship ended with girlfriend. Recently seen by crisis and was waiting for CSS in the living room. Became confused and went to a [facility], responded to anothers name and took Methadone for the first time, requiring medical hospitalization for Methadone poisoning. Today, pt is exhibiting sadness, tearful at times, crying at times and later today with reports of chest pain. Plan: Continue current regime Lorazepam prn Depakote 250 mg bid 01/21/2022: Continue current regimen and plans. I may increase his Depakote tomorrow 01/22/2022: Continue current regimen and plans. Increase Zoloft to 50 mg and Depakote to 750 mg q.h.s. 01/23/2022: Continue current plan. Discontinue seroquel 50 mg QD due to pt reporting sedation. 01/26/22: Increase Risperdal to 1 mg bid and add Valproate 500 mg a.m. 01/27/22: Continue current regime. I spent minutes with the patient and/or on the patient floor today, greater than?50% of which was spent counseling/coordinating care. Patient educated on: medication risk/benefits and therapeutic strategies Informed Consent: understands and further education needed Reason for contiued inpatient stay Substantial Risk for: inability to function and rapid decompensation
[2022-01-27] MEDS: Divalproex Sodium 250 MG TABLET.DR 750 MG PO (19:49)
[2022-01-28 08:45] VITALS: BP 132/76; PULSE 83; TEMP 36.6
[2022-01-28] MEDS: hydroCHLOROthiazide 25 MG TABLET PO (08:57)
[2022-01-28] MEDS: Divalproex Sodium 500 MG TABLET.DR PO (08:57)
[2022-01-28] MEDS: risperiDONE 1 MG TABLET PO ×2 (08:57→20:57)
[2022-01-28] MEDS: amLODIPine Besylate 5 MG TABLET PO (08:57)
[2022-01-28 18:00] VITALS: BP 133/90; PULSE 54; RESP 18; TEMP 37; O2SAT 98
--- NOTE | 2022-01-28 19:56 | P.PNPSI_ITS ---
Subjective Subjective Date of Service: 01/28/22 Reason For Visit: Depression Subjective Notes: Martínez Warning and Conditional Voluntary Healthcare Proxy: No Guardianship: No Medical Problems Affecting Mental Status: No Interim History: Patient seen and discussed with team. Patient evaluated today and upon interview pt reports he feels fine, i'm feeling good. Didnt get too much sleep last night, napped today. Denies depression, not feeling down. Listening to good thoughts, i.e. negative self thoughts are better. Pt is more insightful on medication, I was all over the place before. My mind was everywhere. Denies SE. In the milieu, patient is safe and appropriate in behavior. Denies SI/SIB/HI upon inquiry. Denies irritability or assaultive ideation. Says he feels safe. Medication Compliance: Yes Side effects from medications: No Attending Groups: Yes Review of Systems Acute medical concerns: No Medical Review of Systems: unchanged Mental Status Exam Mental Status Exam Narrative: Patient Appearance:?Appropriate Patient Orientation:?Person, Place, Time and Situation Level of Consciousness:?Alert Patient Behavior:?Appropriate, Talkative, Cooperative and Good Eye Contact Mood Description:?Apprehensive Affect Description:?Constricted Patient Cognition Impaired:?No Ability to Follow Directions:?Good Speech Pattern:?Spontaneous Speech Memory Description:?Intact Hallucinations:?None Delusions:?Not Present Thought Process:?Intact and Goal Oriented Thought Content:?positive for Intact and positive for Goal Oriented Judgment:?Good Diagnostics Vital Signs (24Hr): Vital Signs - 24 hr 01/28/22 08:45 01/28/22 18:00 Temperature 97.9 F 98.6 F Pulse Rate 83 54 Respiratory Rate 18 Blood Pressure 132/76 133/90 H Pulse Oximetry 98 BMI result Body Mass Index 33.3 Medications Medications Current Medications Acetaminophen (Acetaminophen 325 Mg Tablet) 650 mg PO Q6H PRN PRN Reason: Headache/Pain Mild Scale (1-3) Al Hydroxide/Mg Hydroxide (Magnesium Hydrox/Alum Hydrox 30 Ml Oral.Susp) 30 ml PO Q6H PRN PRN Reason: Heartburn/Nausea Amlodipine Besylate (Amlodipine Besylate 5 Mg Tablet) 5 mg PO DAILY [facility]; Protocol Last Admin: 01/28/22 08:57 Dose: 5 mg Documented by: Divalproex Sodium (Divalproex Sodium 250 Mg Tablet.) 750 mg PO BEDTIME [facility] Last Admin: 01/28/22 20:57 Dose: 750 mg Documented by: Divalproex Sodium (Divalproex Sodium 500 Mg Tablet.) 500 mg PO DAILY [facility] Last Admin: 01/28/22 08:57 Dose: 500 mg Documented by: Hydrochlorothiazide (Hydrochlorothiazide 25 Mg Tablet) 25 mg PO DAILY [facility]; Protocol Last Admin: 01/28/22 08:57 Dose: 25 mg Documented by: Hydroxyzine HCl (Hydroxyzine Hcl 25 Mg Tablet) 25 mg PO Q6H PRN PRN Reason: Anxiety Last Admin: 01/20/22 17:30 Dose: 25 mg Documented by: Loperamide HCl (Loperamide Hcl 2 Mg Capsule) 2 mg PO Q6H PRN PRN Reason: diarrhea Last Admin: 01/27/22 22:45 Dose: 2 mg Documented by: Magnesium Hydroxide (Milk Of Magnesia 30 Ml Oral.Susp) 30 ml PO DAILY PRN PRN Reason: Constipation Risperidone (Risperidone 1 Mg Tablet) 1 mg PO BID [facility] Last Admin: 01/28/22 20:57 Dose: 1 mg Documented by: Trazodone HCl (Trazodone Hcl 50 Mg Tablet) 50 mg PO BEDTIME PRN PRN Reason: Insomnia Last Admin: 01/28/22 20:57 Dose: 50 mg Documented by: Allergies Allergies Allergy/AdvReac Type Severity Reaction Status Date / Time No Known Allergies Allergy Verified 01/19/22 21:38 Assessment & Plan Assessment & Plan (1) Bipolar disorder: Status: Acute Code(s): F31.9 - Bipolar disorder, unspecified Plan 32 yo male with hx of bipolar disorder with increased sx of depression over the past two months, since 6 year relationship ended with girlfriend. Recently seen by crisis and was waiting for CSS in the living room. Became confused and went to a [facility], responded to anothers name and took Methadone for the first time, requiring medical hospitalization for Methadone poisoning. Today, pt is exhibiting sadness, tearful at times, crying at times and later today with reports of chest pain. Plan: Continue current regime Lorazepam prn Depakote 250 mg bid 01/21/2022: Continue current regimen and plans. I may increase his Depakote tomorrow 01/22/2022: Continue current regimen and plans. Increase Zoloft to 50 mg and Depakote to 750 mg q.h.s. 01/23/2022: Continue current plan. Discontinue seroquel 50 mg QD due to pt reporting sedation. 01/24/2022: Discontinue zoloft 50 mg per pt request, may also be activating. Will start risperdal 0.5 mg BID to target delusional, bizarre thought content, hx of psychotic episode and paranoia. 01/25/2022: Increase ripserdal to 0.5 mg QAM and 1 mg QHS to target delusional thought content. 01/28/22: No changes made over weekend coverage, on risperdal 1 mg BID I spent minutes with the patient and/or on the patient floor today, greater than?50% of which was spent counseling/coordinating care. Patient educated on: medication risk/benefits and therapeutic strategies Reason for contiued inpatient stay Substantial Risk for: med/psych decompensation
[2022-01-28] MEDS: Divalproex Sodium 250 MG TABLET.DR 750 MG PO (20:57)
[2022-01-28] MEDS: traZODone HCL 50 MG TABLET PO (20:57)
--- NOTE | 2022-01-29 07:30 | HO.PSYCHPN ---
Subjective Subjective Date of Service: 01/29/22 Reason For Visit: Depression Subjective Notes: Martínez Warning and Conditional Voluntary Healthcare Proxy: No Guardianship: No Medical Problems Affecting Mental Status: No Interim History: Patient seen and discussed with team. Patient evaluated today and upon interview he reports his sleep was pretty good, improved, likes PRN trazoodne. Still says he feels more positive. Wants to focus on himself. Denies depression or anxiety. Says he feels more balanced. In the milieu, patient is safe and appropriate in behavior. Denies SI/SIB/HI upon inquiry. Denies irritability or assaultive ideation. Says he feels safe. Medication Compliance: Yes Side effects from medications: No Attending Groups: Yes Review of Systems Acute medical concerns: No Medical Review of Systems: unchanged Mental Status Exam Mental Status Exam Narrative: Patient Appearance:?Appropriate Patient Orientation:?Person, Place, Time and Situation Level of Consciousness:?Alert Patient Behavior:?Appropriate, Talkative, Cooperative and Good Eye Contact Mood Description:?Apprehensive Affect Description:?Constricted Patient Cognition Impaired:?No Ability to Follow Directions:?Good Speech Pattern:?Spontaneous Speech Memory Description:?Intact Hallucinations:?None Delusions:?Not Present Thought Process:?Intact and Goal Oriented Thought Content:?positive for Intact and positive for Goal Oriented Judgment:?Good Diagnostics Vital Signs (24Hr): Vital Signs - 24 hr 01/29/22 08:30 01/29/22 21:50 Temperature 97.6 F 98.6 F Pulse Rate 113 H 102 H Blood Pressure 148/72 H 142/80 H BMI result Body Mass Index 33.3 Medications Medications Current Medications Acetaminophen (Acetaminophen 325 Mg Tablet) 650 mg PO Q6H PRN PRN Reason: Headache/Pain Mild Scale (1-3) Al Hydroxide/Mg Hydroxide (Magnesium Hydrox/Alum Hydrox 30 Ml Oral.Susp) 30 ml PO Q6H PRN PRN Reason: Heartburn/Nausea Amlodipine Besylate (Amlodipine Besylate 5 Mg Tablet) 5 mg PO DAILY [facility]; Protocol Last Admin: 01/29/22 08:35 Dose: 5 mg Documented by: Divalproex Sodium (Divalproex Sodium 250 Mg Tablet.) 750 mg PO BEDTIME [facility] Last Admin: 01/29/22 22:12 Dose: 750 mg Documented by: Divalproex Sodium (Divalproex Sodium 500 Mg Tablet.) 500 mg PO DAILY [facility] Last Admin: 01/29/22 08:35 Dose: 500 mg Documented by: Hydrochlorothiazide (Hydrochlorothiazide 25 Mg Tablet) 25 mg PO DAILY [facility]; Protocol Last Admin: 01/29/22 08:34 Dose: 25 mg Documented by: Hydroxyzine HCl (Hydroxyzine Hcl 25 Mg Tablet) 25 mg PO Q6H PRN PRN Reason: Anxiety Last Admin: 01/20/22 17:30 Dose: 25 mg Documented by: Loperamide HCl (Loperamide Hcl 2 Mg Capsule) 2 mg PO Q6H PRN PRN Reason: diarrhea Last Admin: 01/27/22 22:45 Dose: 2 mg Documented by: Magnesium Hydroxide (Milk Of Magnesia 30 Ml Oral.Susp) 30 ml PO DAILY PRN PRN Reason: Constipation Risperidone (Risperidone 1 Mg Tablet) 1 mg PO BID [facility] Last Admin: 01/29/22 22:12 Dose: 1 mg Documented by: Trazodone HCl (Trazodone Hcl 50 Mg Tablet) 50 mg PO BEDTIME PRN PRN Reason: Insomnia Last Admin: 01/29/22 22:12 Dose: 50 mg Documented by: Allergies Allergies Allergy/AdvReac Type Severity Reaction Status Date / Time No Known Allergies Allergy Verified 01/19/22 21:38 Assessment & Plan Assessment & Plan (1) Bipolar disorder: Status: Acute Code(s): F31.9 - Bipolar disorder, unspecified Plan 32 yo male with hx of bipolar disorder with increased sx of depression over the past two months, since 6 year relationship ended with girlfriend. Recently seen by crisis and was waiting for CSS in the living room. Became confused and went to a [facility], responded to anothers name and took Methadone for the first time, requiring medical hospitalization for Methadone poisoning. Today, pt is exhibiting sadness, tearful at times, crying at times and later today with reports of chest pain. Plan: Continue current regime Lorazepam prn Depakote 250 mg bid 01/21/2022: Continue current regimen and plans. I may increase his Depakote tomorrow 01/22/2022: Continue current regimen and plans. Increase Zoloft to 50 mg and Depakote to 750 mg q.h.s. 01/23/2022: Continue current plan. Discontinue seroquel 50 mg QD due to pt reporting sedation. 01/24/2022: Discontinue zoloft 50 mg per pt request, may also be activating. Will start risperdal 0.5 mg BID to target delusional, bizarre thought content, hx of psychotic episode and paranoia. 01/25/2022: Increase ripserdal to 0.5 mg QAM and 1 mg QHS to target delusional thought content. 01/28/22: No changes made over weekend coverage, on risperdal 1 mg BID 01/29/22: No changes made over weekend coverage, on risperdal 1 mg BID I spent minutes with the patient and/or on the patient floor today, greater than?50% of which was spent counseling/coordinating care. Patient educated on: medication risk/benefits Reason for contiued inpatient stay Substantial Risk for: med/psych decompensation
[2022-01-29 08:30] VITALS: BP 148/72; PULSE 113; TEMP 36.4
[2022-01-29] MEDS: hydroCHLOROthiazide 25 MG TABLET PO (08:34)
[2022-01-29] MEDS: risperiDONE 1 MG TABLET PO ×2 (08:34→22:12)
[2022-01-29] MEDS: amLODIPine Besylate 5 MG TABLET PO (08:35)
[2022-01-29] MEDS: Divalproex Sodium 500 MG TABLET.DR PO (08:35)
[2022-01-29 21:50] VITALS: BP 142/80; PULSE 102; TEMP 37
[2022-01-29] MEDS: traZODone HCL 50 MG TABLET PO (22:12)
[2022-01-29] MEDS: Divalproex Sodium 250 MG TABLET.DR 750 MG PO (22:12)
[2022-01-30 08:00] VITALS: BP 128/67; PULSE 75; RESP 16; TEMP 36.2; O2SAT 99
[2022-01-30] MEDS: Divalproex Sodium 500 MG TABLET.DR PO (08:32)
[2022-01-30] MEDS: hydroCHLOROthiazide 25 MG TABLET PO (08:32)
[2022-01-30] MEDS: risperiDONE 1 MG TABLET PO (08:32)
[2022-01-30] MEDS: amLODIPine Besylate 5 MG TABLET PO (08:32)
--- NOTE | 2022-01-30 13:53 | PC.NURSE ---
Patient was aware and ready for discharge. Discharge paperwork reviewed with patient. Follow up appointment and next dose medication explained to patient. Patient verbalized understanding. Patient was pleasant. Patient was accompanied with belongings to the front of the building per hospital policy.
--- NOTE | 2022-01-30 16:34 | PM.PSYDC ---
DS: Providers Provider Date of Service: 01/30/22 Date of admission: 01/19/22 21:27 Date of discharge: 01/30/22 Primary care physician: Unknown Physician Admitting clinician: Harriet Pablo Attending physician on admission: Harriet Pablo Consults: 01/19/22 21:38 Consult to Hospitalist Routine Consulting Provider: Hospitalist Reason For Exam: New admit from [facility] Attending physician on discharge: Harriet Pablo Discharging clinician: Harriet Pablo DS: Diagnosis Discharge Diagnosis (1) Bipolar disorder: Status: Acute DS: Medications Discharge Medications Home Medications: Previous Rx's Medication Instructions Recorded amlodipine 5 mg tablet 5 mg PO DAILY #15 tab 01/30/22 divalproex 250 mg tablet,delayed 750 mg PO BEDTIME #90 tab 01/30/22 release divalproex 500 mg tablet,delayed 500 mg PO DAILY #30 tab 01/30/22 release hydrochlorothiazide 25 mg tablet 25 mg PO DAILY #15 tab 01/30/22 risperidone 1 mg tablet 1 mg PO BID #60 tab 01/30/22 trazodone 50 mg tablet 50 mg PO BEDTIME PRN #30 tab 01/30/22 Mental Status Exam Mental Status Exam Narrative: Patient Appearance:?Appropriate Patient Orientation:?Person, Place, Time and Situation Level of Consciousness:?Alert Patient Behavior:?Appropriate, Talkative, Cooperative and Good Eye Contact Mood Description:?Apprehensive Affect Description:?Constricted Patient Cognition Impaired:?No Ability to Follow Directions:?Good Speech Pattern:?Spontaneous Speech Memory Description:?Intact Hallucinations:?None Delusions:?Not Present Thought Process:?Intact and Goal Oriented Thought Content:?positive for Intact and positive for Goal Oriented Judgment:?Good DS: Summary Hospital Course Hospital Course: Admission to adult psychiatry for symptoms of bipolar disorder exacerbation. Seroquel, Sertraline and Hydroxyzine were discontinued. Depakote, Risperdal, Trazodone were initiated with efficacy. Amlodipine and Hydrochlorthiazine were continued. Time spent discussing smoking cessation with patient: 3 to 10 minutes Status at Discharge Functional status at discharge: independent ambulation Overall status at discharge: patient is progressing back to baseline Time Spent with Patient Time attestation: Total time spent providing and/or coordinating discharge services: 35 Time spent: Greater than 30 minutes Discharge Plan Discharge Patient Disposition: Home, Self-Care Discharge Diagnosis: Bipolar Disorder Hypertension Referrals: [facility] [Other] - 1 Week (Please bring a valid pickup driver's license and an official document to verify your address (such as a bill) to apply for a library card) Therapy Intake: [facility] [Other] - 1 Week (This is an in-person appointment. You must attend the therapy intake appointment to be referred for psychiatric med management) [facility] [Other] - 1 Week (LEFT MESSAGE TO CALL BACK WITH FOLLOW-UP APPT. OR CALL PT. AT HOME WITH APPT.) Discharge Medications: New divalproex 250 mg Tablet,Delayed Release (Dr/Ec) 750 mg PO BEDTIME Qty: 90 0RF trazodone 50 mg Tablet 50 mg PO BEDTIME PRN (Reason: Insomnia) Qty: 30 0RF divalproex 500 mg Tablet,Delayed Release (Dr/Ec) 500 mg PO DAILY Qty: 30 0RF risperidone 1 mg Tablet 1 mg PO BID Qty: 60 0RF Discontinued quetiapine 100 mg tablet 2 tab PO BEDTIME quetiapine [Seroquel] 100 mg tablet 2 tab PO BEDTIME sertraline 25 mg tablet 1 tab PO QAM sertraline [Zoloft] 25 mg tablet 1 tab PO QAM hydroxyzine HCl 25 mg tablet 1 tab PO BID PRN (Reason: anxiety) quetiapine 50 mg tablet 1 tab PO QAM quetiapine [Seroquel] 50 mg tablet 1 tab PO QAM No Action amlodipine 5 mg Tablet 5 mg PO DAILY Qty: 30 0RF Protocol: Hold for SBP< HOLD for SBP < : 90 hydrochlorothiazide 25 mg Tablet 25 mg PO DAILY Qty: 30 1RF Protocol: Hold for SBP< HOLD for SBP < : 90 Discharge Orders: Discharge Order (Routine); Ordered 01/30/22 Ordered By: Harriet Pablo Diet: advance to usual diet Activity on Discharge: As tolerated Stand Alone Forms: Patient Portal Discharge page, Community Support Care Plan Goals: Mood Stabilization Health Concerns: Bipolar Disorder Hypertension Plan of Treatment: Attend scheduled appointments Take medications as instructed We will need to check labs this week. Please come to [facility] Patient Registration this week for lab work. Orders will be on file. Call and/or return as needed Crisis Team if needed [phone] Assessment: non-psychotic, non-suicidal Discharge Date/Time: 01/30/22 13:45
== END 2022-01-30 13:45 | disposition home or self-care (01) | DRG 753 ==
PROVIDERS: Family Medicine; Physician Assistant Medical; Psychiatry & Neurology Psychiatry; Registered Nurse; Admitting Provider Psychiatry & Neurology Psychiatry; Visit Provider Clinical Nurse Specialist Psychiatric/Mental Health, Adult
DX: F31.9 Bipolar disorder, unspecified (principal); R45.851 Suicidal ideations; I10 Essential (primary) hypertension; Z79.899 Other long term (current) drug therapy
CPT/HCPCS: 36415; 80061; 80164; 82607; 82746; 83036; 83735; 84439; 84443; 84484; 93005

== ENCOUNTER 2022-02-09 14:21 | Outpatient (REF) | payer OTHER, SELFPAY ==
[2022-02-09 14:39] LABS: MANUAL DIFF FLAG NO
[2022-02-09 15:08] LABS: Basophils Absolute Auto 0.1 X10*3/uL (0.0-0.2); Basophils Percent Auto 0.6 % (0-2); Eosinophils Absolute Auto 0.4 X10*3/uL (0.0-0.4); Eosinophils Percent Auto 3.6 % (0-4); Hematocrit 43.2 % (42.0-52.0); Hemoglobin 13.9 g/dl (14.0-18.0); Imm Gran Abs Auto 0.13 X10*3/uL (0.00-0.03); Imm Gran Pct Auto 1.2 % (0.0-0.4); Lymphocytes Absolute Auto 2.6 X10*3/uL (1.2-4.9); Mean Corpuscular HGB Conc 32.2 g/dl (31.0-36.0); Mean Corpuscular Hemoglobin 27.3 pg (27.0-33.0); Mean Corpuscular Volume 84.9 fL (80.0-98.0); Mean Platelet Volume 11.2 fL (9.4-12.4); Monocytes Absolute Auto 0.9 X10*3/uL (0.1-1.2); Monocytes Percent Auto 8.6 % (2-11); Neutrophils Absolute Auto 6.6 x10*3/uL (2.0-8.3); Platelet Count 222 X10*3/uL (160-400); Red Blood Count 5.09 X10*6/uL (4.60-5.80); Red Cell Distribution Width 13.7 % (11.0-16.0); White Blood Count 10.6 X10*3/uL (4.8-10.8)
[2022-02-09 15:30] LABS: Alanine Aminotransferase 19 U/L (0-40); Alkaline Phosphatase 114 U/L (39-117); Anion Gap 14 (12-20); Aspartate Amino Transferase 14 U/L (5-37); Bilirubin Total 0.2 mg/dL (0.0-1.0); Blood Urea Nitrogen 13 mg/dL (9-16); Calcium 9.8 mg/dL (8.4-10.2); Carbon Dioxide 30 mmol/L (22-29); Chloride 99 mmol/L (96-108); Estimated Glomerular Filt Rate > 60; Glucose Random 102 mg/dL (60-115); Potassium 3.8 mmol/L (3.3-5.1); Sodium 139 mmol/L (135-145); Total Protein 7.1 g/dL (6.5-8.0)
[2022-02-09 15:34] LABS: Valproate 96.1 mcg/mL (50.0-100.0)
== END 2022-02-09 14:22 | disposition home or self-care (01) ==
LOC: HO.LAB 14:21
PROVIDERS: Visit Provider Clinical Nurse Specialist Psychiatric/Mental Health, Adult
DX: F31.9 Bipolar disorder, unspecified (principal); Z79.899 Other long term (current) drug therapy
CPT/HCPCS: 36415; 80053; 80164; 85025

== ENCOUNTER 2023-02-05 15:47 | Inpatient (IN) | payer OTHER, SELFPAY ==
[2023-02-05 15:56] VITALS: BP 191/113; PULSE 119; RESP 20; TEMP 37.3; O2SAT 98; BMI 37.9
--- NOTE | 2023-02-05 15:59 | ED.GENADULT ---
HPI - General Adult General Chief complaint: Psychiatric Symptoms Stated complaint: bipolar depression Time Seen by Provider: 02/05/23 16:30 Source: patient Mode of arrival: ambulatory Limitations: no limitations History of Present Illness HPI narrative: Patient is a 33-year-old male with history of Bipolar and HTN presenting to the emergency department for evaluation of depression and manic behavior. He states that he has not taken any of his Bipolar or HTN medications for the past 6-8 months. He is currently denying any suicidal or homicidal ideation, denies any auditory or visual hallucinations. He reports that he lives with his mother, stepfather, sister, and nieces. He denies any physical complaints. complaint: depression, josh Onset (ago): day(s) Related Data Home Medications Medication Instructions Recorded Confirmed amlodipine 5 mg tablet 5 mg PO DAILY 02/06/23 02/06/23 hydrochlorothiazide 25 mg tablet 25 mg PO DAILY 02/06/23 02/06/23 Allergies Allergy/AdvReac Type Severity Reaction Status Date / Time No Known Allergies Allergy Verified 02/05/23 16:49 Review of Systems Review of Systems: As per HPI Yes all other systems are reviewed and are negative Constitutional: Constitutional: Reports as per HPI [facility] Past Medical History Medical History (Updated 02/05/23 @ 19:06 by Linda Morrissey NP) Bipolar disorder Social History Social History Household Members: Family Housing: Apartment Do you presently have visiting nurse or other home services: No Alcohol intake: current Alcohol intake frequency: other Patient Tobacco Use Status: Former Tobacco user e-Cigarette/Vaping Use: Former Use Second Hand Smoke Exposure: No Use of substances other than those prescribed or required for medical reasons: Yes Substance Use Type: Marijuana Substance Use Frequency: Occasionally Last Used Substance: Unknown Any prior treatment program specific to substance use: No Advance Directives: No Advance Directives Information Provided: Yes Healthcare Proxy: No Guardian: No service: No Sexual orientation: Straight/Heterosexual Physical Exam ED Vital Signs: Vital Signs - 24 hr 02/05/23 16:16 02/05/23 17:07 02/06/23 01:32 Temperature 98.3 F 98.7 F Pulse Rate 113 H 93 104 H Respiratory Rate 18 18 Blood Pressure 159/89 H 162/87 H 169/103 H Pulse Oximetry 98 98 Oxygen Delivery Method Room Air Room Air 02/06/23 08:34 Temperature Pulse Rate 71 Respiratory Rate 15 Blood Pressure 166/90 H Pulse Oximetry 98 Oxygen Delivery Method Room Air BMI result Body Mass Index 37.9 Vital signs have been reviewed and appear to be correct. Blood pressure elevated. Heart rate tachycardic. Respiratory rate normal. Temperature normal. Oxygen saturation normal. Const General: cooperative, healthy appearing and no acute distress Orientation/consciousness: oriented to person, oriented to place, oriented to time and patient oriented x3 Limitations: no limitations HENMT Head: Yes normocephalic and Yes atraumatic Ears: external ears normal General nose exam: Normal external nose present Face and sinus: Yes face symmetric Mouth: oropharynx normal and moist mucous membranes Throat: Yes uvula midline Eyes Pupils: Equal, round and reactive pupils present Neck Neck: Yes normal visual inspection and Yes supple Resp Effort & Inspection: normal respiratory effort and able to speak in complete sentences Auscultation: clear to auscultation bilaterally Cardio Rate: regular rate Rhythm: regular rhythm Heart sounds: S1 normal heart sound present and S2 normal heart sound present GI Palpation (GI): Soft to palpation and nontender Auscultation: normoactive bowel sounds General: Yes no CVA tenderness Back/Spine/Pelvis Back: no CVA tenderness Skin General skin exam: elasticity normal and turgor normal Neuro General: oriented to person, oriented to place, oriented to time, patient oriented x3, moves all extremities, no focal motor deficits and CN's II-XI intact bilaterally Cranial nerves: Yes Equal, round and reactive pupils present Cognition (Neuro): normal cognition Extrem General: Yes full ROM, Yes no pedal edema and Yes no calf tenderness Psych Appearance: grossly normal Mental Status: mental status grossly normal Speech and movement: Pressured speech present Affect: Ecstatic affect present Attitude: cooperative Thought content: suicidality, no homicidality, no hallucinations and Depressive thoughts present Insight: Fair insight present (Psych) Course Course Course Narrative: RME: 33 yold male presents to the ED for depression and bipolar. Patient found to be hypertensive and tachycarid. patient not compliant with hypertensive or psych meds. parents believes patient is deteriorating psych adams. mary ann manic 19:02 Patient has mild leukocytosis, labs otherwise unremarkable. He is afebrile and denies any complaints. Urine negative for UTI. Will medically clear patient. Per Jose J from Care team patient is agreeable to admission for restarting his medications. Physician observation ordered. Reevaluation(s) Reevaluation #1: physician observation continued: uneventful night currently plans on going inpatient voluntary. Observation continued to see if time will change his condition and will no longer need to be admitted while waiting for an inpatient bed. Time: 07:12 Medications Administered Generic Name Dose Route Start Last Admin Trade Name Freq PRN Reason Stop Dose Admin Amlodipine Besylate 5 mg 02/06/23 09:00 02/06/23 08:50 Amlodipine Besylate 5 Mg Tablet PO 5 mg DAILY YUE Administration Protocol Hydrochlorothiazide 25 mg 02/06/23 09:00 02/06/23 08:50 Hydrochlorothiazide 25 Mg Tablet PO 25 mg DAILY YUE Administration Protocol Discontinued Medications Generic Name Dose Route Start Last Admin Trade Name Freq PRN Reason Stop Dose Admin Lorazepam 2 mg 02/06/23 01:28 02/06/23 01:32 Lorazepam 1 Mg Tablet PO 02/06/23 01:29 2 mg ONCE ONE Administration Olanzapine 5 mg 02/06/23 01:28 02/06/23 01:32 Olanzapine 5 Mg Tablet PO 02/06/23 01:29 5 mg ONCE ONE Administration Medical Decision Making Medical Decision Making [facility] Narrative: Patient is a 33-year-old male with history of Bipolar and HTN presenting to the emergency department for evaluation of depression and manic behavior. On exam patient is awake, A+Ox3, in no acute distress, nontoxic appearing, mildly hypertensive and tachycardic with euphoric affect and pressured speech. Differential includes anxiety, depression, josh. Will obtain baseline labs and place Care team consult. Differential Diagnosis Differential Diagnoses: The differential diagnosis associated with the presentation includes As above. Admission/Observation Consideration of admission/observation: Escalation of care including admission/observation considered Lab Data [facility] Lab Attestation statement: I reviewed the patient's lab results. 02/05/23 16:54 02/05/23 16:54 Labs: Lab Results 02/05/23 02/05/23 02/05/23 Range/Units 16:41 16:41 16:42 WBC (4.8-10.8) X10*3/uL RBC (4.60-5.80) X10*6/uL Hgb (14.0-18.0) g/dl Hct (42.0-52.0) % MCV (80.0-98.0) fL MCH (27.0-33.0) pg MCHC (31.0-36.0) g/dl RDW (11.0-16.0) % Plt Count (160-400) X10*3/uL MPV (9.4-12.4) fL Immature Gran % (Auto) (0.0-0.4) % Neut % (Auto) (45-73) % Lymph % (Auto) (20-40) % [place] % (Auto) (2-11) % Eos % (Auto) (0-4) % Baso % (Auto) (0-2) % Lymph # (Auto) (1.2-4.9) X10*3/uL [place] # (Auto) (0.1-1.2) X10*3/uL Eos # (Auto) (0.0-0.4) X10*3/uL Baso # (Auto) (0.0-0.2) X10*3/uL Abs Immat Gran (auto) (0.00-0.03) X10*3/uL Absolute Neuts (auto) (2.0-8.3) x10*3/uL Absolute Nucleated RBC (0.0-0.012) X10*3/uL Nucleated RBC % (auto) (0.0-0.2) /100WBC Sodium (135-145) mmol/L Potassium (3.3-5.1) mmol/L Chloride (96-108) mmol/L Carbon Dioxide (22-29) mmol/L Anion Gap (12-20) BUN (9-16) mg/dL Creatinine (0.5-1.4) mg/dL Estim Creat Clear Calc Estimated GFR Random Glucose (60-115) mg/dL Calcium (8.4-10.2) mg/dL Total Bilirubin (0.0-1.0) mg/dL AST (5-37) U/L ALT (0-40) U/L Alkaline Phosphatase (39-117) U/L Total Protein (6.5-8.0) g/dL Albumin (3.5-5.0) g/dL Urine Color Dark Yellow Urine Appearance Clear Urine pH 5.5 (5.0-9.0) Ur Specific [place] >= 1.030 H (1.005-1.025) Urine Protein 30 (1+) H (Neg-Trace) mg/dL Urine Glucose (UA) Negative (Negative) mg/dL Urine Ketones Trace (Negative) mg/dL Urine Blood Negative (Negative) Urine Nitrite Negative (Negative) Ur Leukocyte Esterase Negative (Negative) Urine RBC 0-2 (0-2) /HPF Urine WBC 0-5 (0-5) /HPF Ur Squamous Epith Cells 0-2 (0-2) /HPF Urine Bacteria None Seen (None Seen) Hyaline Casts 3-5 (0-2) /LPF Urine Opiates Screen Not Detected (Not Detect) Urine Fentanyl Screen Not Detected (Not Detect) Ur Barbiturates Screen Not Detected (Not Detect) Ur Phencyclidine Scrn Not Detected (Not Detect) Ur Amphetamines Screen Not Detected (Not Detect) U Benzodiazepines Scrn Not Detected (Not Detect) Urine Cocaine Screen Not Detected (Not Detect) U Marijuana (THC) Screen POSITIVE H (Not Detect) Ethyl Alcohol mg/dL COVID-19 ([facility]) Negative (Negative) COVID-19 Clin Com See Note 02/05/23 02/05/23 Range/Units 16:54 16:54 WBC 15.0 H (4.8-10.8) X10*3/uL RBC 5.26 (4.60-5.80) X10*6/uL Hgb 14.5 (14.0-18.0) g/dl Hct 44.1 (42.0-52.0) % MCV 83.8 (80.0-98.0) fL MCH 27.6 (27.0-33.0) pg MCHC 32.9 (31.0-36.0) g/dl RDW 13.7 (11.0-16.0) % Plt Count 209 (160-400) X10*3/uL MPV 12.3 (9.4-12.4) fL Immature Gran % (Auto) 0.5 H (0.0-0.4) % Neut % (Auto) 70.2 (45-73) % Lymph % (Auto) 21.1 (20-40) % [place] % (Auto) 6.4 (2-11) % Eos % (Auto) 1.2 (0-4) % Baso % (Auto) 0.6 (0-2) % Lymph # (Auto) 3.2 (1.2-4.9) X10*3/uL [place] # (Auto) 1.0 (0.1-1.2) X10*3/uL Eos # (Auto) 0.2 (0.0-0.4) X10*3/uL Baso # (Auto) 0.1 (0.0-0.2) X10*3/uL Abs Immat Gran (auto) 0.07 H (0.00-0.03) X10*3/uL Absolute Neuts (auto) 10.6 H (2.0-8.3) x10*3/uL Absolute Nucleated RBC 0.000 (0.0-0.012) X10*3/uL Nucleated RBC % (auto) 0.0 (0.0-0.2) /100WBC Sodium 140 (135-145) mmol/L Potassium 3.3 (3.3-5.1) mmol/L Chloride 104 (96-108) mmol/L Carbon Dioxide 28 (22-29) mmol/L Anion Gap 11 L (12-20) BUN 15 (9-16) mg/dL Creatinine 0.98 (0.5-1.4) mg/dL Estim Creat Clear Calc 123.8 Estimated GFR > 60 Random Glucose 110 (60-115) mg/dL Calcium 9.2 D (8.4-10.2) mg/dL Total Bilirubin 0.5 (0.0-1.0) mg/dL AST 23 (5-37) U/L ALT 35 (0-40) U/L Alkaline Phosphatase 114 (39-117) U/L Total Protein 6.9 (6.5-8.0) g/dL Albumin 4.1 (3.5-5.0) g/dL Urine Color Urine Appearance Urine pH (5.0-9.0) Ur Specific [place] (1.005-1.025) Urine Protein (Neg-Trace) mg/dL Urine Glucose (UA) (Negative) mg/dL Urine Ketones (Negative) mg/dL Urine Blood (Negative) Urine Nitrite (Negative) Ur Leukocyte Esterase (Negative) Urine RBC (0-2) /HPF Urine WBC (0-5) /HPF Ur Squamous Epith Cells (0-2) /HPF Urine Bacteria (None Seen) Hyaline Casts (0-2) /LPF Urine Opiates Screen (Not Detect) Urine Fentanyl Screen (Not Detect) Ur Barbiturates Screen (Not Detect) Ur Phencyclidine Scrn (Not Detect) Ur Amphetamines Screen (Not Detect) U Benzodiazepines Scrn (Not Detect) Urine Cocaine Screen (Not Detect) U Marijuana (THC) Screen (Not Detect) Ethyl Alcohol < 10 mg/dL COVID-19 ([facility]) (Negative) COVID-19 Clin Com External Record Review External record reviewed: Inpatient record, Office record and Outpatient record Chronic Conditions Patient?s care impacted by: Other (Bipolar disorder) Discharge Plan Discharge Clinical Impression: Bipolar disorder Patient Disposition: Admitted As Inpatient Interventions: [place]-Suicide Risk Severity Scale Last Done: 02/06/23 09:15
[2023-02-05 16:16] VITALS: BP 159/89; PULSE 113; RESP 18; TEMP 36.8; O2SAT 98; BMI 37.9
[2023-02-05 16:59] LABS: MANUAL DIFF FLAG NO
[2023-02-05 17:07] VITALS: BP 162/87; PULSE 93
[2023-02-05 17:09] LABS: Basophils Absolute Auto 0.1 X10*3/uL (0.0-0.2); Basophils Percent Auto 0.6 % (0-2); Eosinophils Absolute Auto 0.2 X10*3/uL (0.0-0.4); Eosinophils Percent Auto 1.2 % (0-4); Hematocrit 44.1 % (42.0-52.0); Hemoglobin 14.5 g/dl (14.0-18.0); Imm Gran Abs Auto 0.07 X10*3/uL (0.00-0.03); Imm Gran Pct Auto 0.5 % (0.0-0.4); Lymphocytes Absolute Auto 3.2 X10*3/uL (1.2-4.9); Lymphocytes Percent Auto 21.1 % (20-40); Mean Corpuscular HGB Conc 32.9 g/dl (31.0-36.0); Mean Corpuscular Hemoglobin 27.6 pg (27.0-33.0); Mean Corpuscular Volume 83.8 fL (80.0-98.0); Mean Platelet Volume 12.3 fL (9.4-12.4); Monocytes Percent Auto 6.4 % (2-11); Neutrophils Absolute Auto 10.6 x10*3/uL (2.0-8.3); Neutrophils Percent Auto 70.2 % (45-73); Platelet Count 209 X10*3/uL (160-400); Red Blood Count 5.26 X10*6/uL (4.60-5.80); Red Cell Distribution Width 13.7 % (11.0-16.0)
[2023-02-05 17:10] LABS: Appearance Urine Clear; Color Urine Dark Yellow; Glucose Urine UA Negative (Negative); Leukocyte Esterase Urine Negative (Negative); Nitrite Urine Negative (Negative); PH 5.5 (5.0-9.0); Specific Gravity - Urine >= 1.030 (1.005-1.025); UMIC TRIGGER UACC YES; Urine Blood Negative (Negative); Urine Ketones Trace mg/dL (Negative); Urine Protein 30 (1+) mg/dL (Neg-Trace)
[2023-02-05 17:20] LABS: COVID-19 Test Negative (Negative); IDNOW Serial# 08D9AD1C
[2023-02-05 17:21] LABS: Amphetamine Screen Urine Not Detected (Not Detect); Barbiturates, Urine Not Detected (Not Detect); Benzodiazepines Screen Urine Not Detected (Not Detect); Cannabinoid Screen Urine POSITIVE (Not Detect); Cocaine Screen Urine Not Detected (Not Detect); Fentanyl, urine Not Detected (Not Detect); Opiate Screen Urine Not Detected (Not Detect); Phencyclidine Screen Urine Not Detected (Not Detect)
[2023-02-05 17:24] LABS: Alanine Aminotransferase 35 U/L (0-40); Albumin Level 4.1 g/dL (3.5-5.0); Alkaline Phosphatase 114 U/L (39-117); Anion Gap 11 (12-20); Aspartate Amino Transferase 23 U/L (5-37); Bilirubin Total 0.5 mg/dL (0.0-1.0); Blood Urea Nitrogen 15 mg/dL (9-16); Calcium 9.2 mg/dL (8.4-10.2); Carbon Dioxide 28 mmol/L (22-29); Chloride 104 mmol/L (96-108); Creatinine Clr Calc Pharmacy 123.8; Estimated Glomerular Filt Rate > 60; Ethanol < 10 mg/dL; Glucose Random 110 mg/dL (60-115); Potassium 3.3 mmol/L (3.3-5.1); Sodium 140 mmol/L (135-145); Total Protein 6.9 g/dL (6.5-8.0)
[2023-02-05 18:06] LABS: Bacteria Urine None Seen (None Seen); RBC Urine 0-2 /HPF (0-2); Squamous Epithelial Cell Urine 0-2 /HPF (0-2); WBC Urine 0-5 /HPF (0-5)
[2023-02-06 01:32] VITALS: BP 169/103; PULSE 104; RESP 18; TEMP 37.1; O2SAT 98
[2023-02-06] MEDS: OLANZapine 5 MG TABLET PO (01:32)
[2023-02-06] MEDS: LORazepam 1 MG TABLET 2 MG PO (01:32)
[2023-02-06] MEDS: amLODIPine Besylate 5 MG TABLET PO ×2 (01:51→08:50)
--- NOTE | 2023-02-06 05:44 | PC.NURSE ---
Patient was tearful at 0100, self dialoguing, reported he hasn't slept for 4 days, Ativan 2 mg Po and Olanzapine 5 mg po administered at 0132 and Amlodipine 5 mg po at 0157, patient slept since 0200, up x1 once for bathroom use and back, no distress observed/reported at this time, behavior non concerning, disposition per care team is voluntary inpatient bed search, medication compliant, psych consult ordered for med review, will continue to monitor
--- NOTE | 2023-02-06 07:27 | PHA.MEDREC ---
Pharmacy Consult ? Medication Reconciliation Pharmacy has completed the medication reconciliation. Pharmacy has reviewed the med rec done by [place]
[2023-02-06 08:34] VITALS: BP 166/90; PULSE 71; RESP 15; O2SAT 98
[2023-02-06] MEDS: hydroCHLOROthiazide 25 MG TABLET PO (08:50)
[2023-02-06 17:38] VITALS: BP 179/100; PULSE 96; RESP 20; TEMP 36.7; O2SAT 96
--- NOTE | 2023-02-06 17:41 | PC.ADMIT ---
Nursing admission note: Patient 33 year old male DX: Bipolar 1 disorder, manic episode, mild. Referred for admission by CARE team. Signed Conditional voluntary for admission. Self presented to [facility] ED due to depression and anxiety. Patient engages easily, presents with good eye contact, calm and cooperative with admission process. Reports he has not been on medication or seen by prescriber for months. Reports increase in depression, crying and crying . Reports these periods of crying are related to memories , good ones and bad ones . Patient with brief crying jag during admission assessment. Denies SI/HI plan or intent at this time, stating he believes in God. Thoughts are clear, linear and organized. Denies perceptual disturbances, no overt psychosis or expressed delusions. Speech rapid at times, normal tone, candi, volume. Presents dressed in hospital attire, clean, neat. Reports he slept today however has not slept well for days, I was awake for 4 days . Reports decrease in appetite. Reports recent fall at home I was off balance . Patient with history of HTN. NKA. TOX screen positive for cannabis. Declined nicotine replacement therapy stating he only smoked 1 cigarette yesterday. Patient oriented to unit, placed on 15 minute safety checks. See nursing assessment/crisis evaluation for complete details.
[2023-02-06] MEDS: cloNIDine HCL 0.1 MG TABLET PO (18:13)
[2023-02-06 19:18] VITALS: BP 170/94; PULSE 98; RESP 20
[2023-02-06 19:56] VITALS: BP 136/82; PULSE 100; RESP 20; TEMP 36.8; O2SAT 97
[2023-02-06] MEDS: traZODone HCL 50 MG TABLET PO (22:09)
[2023-02-07 08:00] VITALS: BP 143/88; PULSE 77; RESP 18; TEMP 36.8; O2SAT 98
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
[2023-02-07] MEDS: amLODIPine Besylate 5 MG TABLET PO (08:57)
[2023-02-07] MEDS: hydroCHLOROthiazide 25 MG TABLET PO (08:57)
[2023-02-07 09:26] LABS: MANUAL DIFF FLAG NO
[2023-02-07 09:31] LABS: Basophils Absolute Auto 0.1 X10*3/uL (0.0-0.2); Basophils Percent Auto 0.7 % (0-2); Eosinophils Absolute Auto 0.4 X10*3/uL (0.0-0.4); Eosinophils Percent Auto 2.8 % (0-4); Hematocrit 48.4 % (42.0-52.0); Imm Gran Abs Auto 0.06 X10*3/uL (0.00-0.03); Imm Gran Pct Auto 0.5 % (0.0-0.4); Lymphocytes Absolute Auto 2.6 X10*3/uL (1.2-4.9); Lymphocytes Percent Auto 20.1 % (20-40); Mean Corpuscular HGB Conc 33.1 g/dl (31.0-36.0); Mean Corpuscular Hemoglobin 28.2 pg (27.0-33.0); Mean Corpuscular Volume 85.2 fL (80.0-98.0); Mean Platelet Volume 12.5 fL (9.4-12.4); Monocytes Absolute Auto 0.9 X10*3/uL (0.1-1.2); Monocytes Percent Auto 6.5 % (2-11); Neutrophils Percent Auto 69.4 % (45-73); Platelet Count 228 X10*3/uL (160-400); Red Blood Count 5.68 X10*6/uL (4.60-5.80); Red Cell Distribution Width 13.5 % (11.0-16.0)
[2023-02-07 09:49] LABS: Estimated Average Glucose 100 mg/dL; Hemoglobin A1c % 5.1 %
[2023-02-07 10:29] LABS: Cholesterol 223 mg/dL; HDL Cholesterol 37 mg/dL; LDL Cholesterol Calculated 167 mg/dl; Triglycerides 97 mg/dL
[2023-02-07] MEDS: traZODone HCL 50 MG TABLET PO (21:53)
[2023-02-07] MEDS: Lithium Carbonate ER 300 MG TABLET.ER 600 MG PO (21:53)
[2023-02-07 21:56] VITALS: BP 153/74; PULSE 120; TEMP 36.6; O2SAT 98
[2023-02-08] MEDS: traZODone HCL 50 MG TABLET PO (00:49)
[2023-02-08] MEDS: hydrOXYzine HCL 25 MG TABLET PO (00:49)
[2023-02-08] MEDS: OLANZapine 5 MG TABLET PO (03:27)
[2023-02-08 07:00] VITALS: BMI 37.4
[2023-02-08 08:45] VITALS: BP 150/80; PULSE 84; TEMP 36.6; O2SAT 100
[2023-02-08] MEDS: amLODIPine Besylate 5 MG TABLET PO ×2 (08:49→10:40)
[2023-02-08] MEDS: Lithium Carbonate ER 300 MG TABLET.ER 600 MG PO ×2 (08:49→21:24)
[2023-02-08] MEDS: hydroCHLOROthiazide 12.5 MG TABLET PO (08:49)
--- NOTE | 2023-02-08 12:55 | P.PNPSI_ITS ---
Subjective Subjective Date of Service: 02/08/23 Reason For Visit: mood dysregualtion Interim History: calm, cooperative. reports feeling good on lithium. then states he is feeling more distracted and confused... then says he was feeling more distracted and confused at admission. asks for something to help with sleep, saying the hydroxyzine and trazodone didn't do it. per report he had been helped by seroquel, agrees to give it another try. also discuss HCTZ on lithium and agree to increase norvasc to 10 mg daily and DC HCTZ. per staff, 3-day notice submitted, good appetite, poor sleep. Mental Status Exam Mental Status Exam Narrative: alert, oriented and pleasant. Speech is soft-spoken. good contact. Affect is constricted. Mood is feeling good on lithium. No acute signs of psychosis. No delusions. thoughts seem somewhat disorganized. No SI/SIBI/HI/AVH expresse d. Judgment is intact Diagnostics Vital Signs (24Hr): Vital Signs - 24 hr 02/07/23 21:56 02/08/23 08:45 Temperature 97.9 F 97.9 F Pulse Rate 120 H 84 Blood Pressure 153/74 H 150/80 H Pulse Oximetry 98 100 Oxygen Delivery Method Room Air Room Air BMI result Body Mass Index 37.9 Labs 02/07/23 09:13 02/05/23 16:54 Labs: Laboratory Results - last 48 hr 02/07/23 02/07/23 02/07/23 09:13 09:13 09:13 WBC 13.0 H RBC 5.68 Hgb 16.0 Hct 48.4 MCV 85.2 MCH 28.2 MCHC 33.1 RDW 13.5 Plt Count 228 MPV 12.5 H Immature Gran % (Auto) 0.5 H Neut % (Auto) 69.4 Lymph % (Auto) 20.1 [place] % (Auto) 6.5 Eos % (Auto) 2.8 Baso % (Auto) 0.7 Lymph # (Auto) 2.6 [place] # (Auto) 0.9 Eos # (Auto) 0.4 Baso # (Auto) 0.1 Abs Immat Gran (auto) 0.06 H Absolute Neuts (auto) 9.0 H Absolute Nucleated RBC 0.000 Nucleated RBC % (auto) 0.0 Estimat Average Glucose 100 Hemoglobin A1c % 5.1 Triglycerides 97 Cholesterol 223 LDL Cholesterol, Calc 167 HDL Cholesterol 37 Medications Medications Current Medications Acetaminophen (Acetaminophen 325 Mg Tablet) 650 mg PO Q6H PRN PRN Reason: Headache/Pain Mild Scale (1-3) Al Hydroxide/Mg Hydroxide (Magnesium Hydrox/Alum Hydrox 30 Ml Oral.Susp) 30 ml PO Q6H PRN PRN Reason: Heartburn/Nausea Amlodipine Besylate (Amlodipine Besylate 10 Mg Tablet) 10 mg PO DAILY YUE; Protocol Hydroxyzine HCl (Hydroxyzine Hcl 25 Mg Tablet) 25 mg PO Q6H PRN PRN Reason: Anxiety Last Admin: 02/08/23 00:49 Dose: 25 mg [place] Carbonate ([place] Carbonate Er 300 Mg Tablet.Er) 600 mg PO BID YUE Last Admin: 02/08/23 08:49 Dose: 600 mg Magnesium Hydroxide (Milk Of Magnesia 30 Ml Oral.Susp) 30 ml PO DAILY PRN PRN Reason: Constipation Nicotine Polacrilex (Nicotine Polacrilex 2 Mg Gum) 4 mg BUCCAL Q2H PRN PRN Reason: Nicotine Cravings Olanzapine (Olanzapine 5 Mg Tablet) 5 mg PO TID PRN PRN Reason: agitation Last Admin: 02/08/23 03:27 Dose: 5 mg Quetiapine Fumarate (Quetiapine Fumarate 200 Mg Tablet) 200 mg PO BEDTIME YUE Quetiapine Fumarate (Quetiapine Fumarate 100 Mg Tablet) 100 mg PO BEDTIME PRN PRN Reason: insomnia Trazodone HCl (Trazodone Hcl 50 Mg Tablet) 50 mg PO BEDTIME MRX1 PRN PRN Reason: Insomnia Last Admin: 02/08/23 00:49 Dose: 50 mg Allergies Allergies Allergy/AdvReac Type Severity Reaction Status Date / Time No Known Allergies Allergy Verified 02/05/23 16:49 Assessment & Plan Assessment & Plan (1) Bipolar disorder: Status: Acute Code(s): F31.9 - Bipolar disorder, unspecified (2) Hypertension: Status: Acute Code(s): I10 - Essential (primary) hypertension Plan 02/07: lithium trial for mood lability and mixed josh presentation. decrease HCTZ from 25 mg to 12.5 mg due to complications with kidney/lithium. T/C DC entirely and use of another anti-hypertensive as indicated. 02/08: feeling well on lithium. DC HCTZ today, increase norvasc to 10 mg daily. trend BP and will likely need to add another BP med. start seroquel 200 QHS for insomnia, with 100 mg PRN. 3-day in, expires sunday. Reason for continued inpatient stay Substantial Risk for: harm to self, inability to function and rapid decompensation Time Spent With Patient Time: Total time managing care of this patient today __35__ minutes.
[2023-02-08 21:21] VITALS: BP 149/86; PULSE 84; RESP 18; TEMP 36.7; O2SAT 98
[2023-02-08] MEDS: QUEtiapine Fumarate 200 MG TABLET PO (21:24)
[2023-02-09 08:30] VITALS: BP 141/80; PULSE 99; RESP 18; TEMP 36.6; O2SAT 98
[2023-02-09] MEDS: amLODIPine Besylate 10 MG TABLET PO (09:34)
[2023-02-09] MEDS: Lithium Carbonate ER 300 MG TABLET.ER 600 MG PO ×2 (09:34→21:27)
--- NOTE | 2023-02-09 14:44 | P.PNPSI_ITS ---
Subjective Subjective Date of Service: 02/09/23 Reason For Visit: mood dysregualtion Interim History: pt ambivalent about sunday discharge, saying he may rescind his 3-day notice and stay longer, will discuss with his grandmother. pt educated about process in the event he chooses to stay past sunday. he expresses the feeling that the lithium is helpful for him in that it is keeping me calm and relaxed. denies safety concerns. per staff, 3-day notice up sunday. denies dep/anx. isolative. pleasant. norvasc increased to 10 mg daily, seems to be controlling BP reasonably well at the moment. and 6, dep 1000 last NOC. slept well. Mental Status Exam Mental Status Exam Narrative: alert, oriented and pleasant. Speech is soft-spoken. good contact. Affect is flexible, normo-intense. Mood is OK. No acute signs of psychosis. No delusions. thoughts linear and logical. No SI/SIBI/HI/AVH expressed. Judgment is intact Diagnostics Vital Signs (24Hr): Vital Signs - 24 hr 02/08/23 21:21 02/09/23 08:30 Temperature 98.0 F 97.9 F Pulse Rate 84 99 Respiratory Rate 18 18 Blood Pressure 149/86 H 141/80 H Pulse Oximetry 98 98 Oxygen Delivery Method Room Air Room Air BMI result Body Mass Index 37.9 Labs 02/07/23 09:13 02/05/23 16:54 Medications Medications Current Medications Acetaminophen (Acetaminophen 325 Mg Tablet) 650 mg PO Q6H PRN PRN Reason: Headache/Pain Mild Scale (1-3) Al Hydroxide/Mg Hydroxide (Magnesium Hydrox/Alum Hydrox 30 Ml Oral.Susp) 30 ml PO Q6H PRN PRN Reason: Heartburn/Nausea Amlodipine Besylate (Amlodipine Besylate 10 Mg Tablet) 10 mg PO DAILY YUE; Protocol Last Admin: 02/09/23 09:34 Dose: 10 mg Hydroxyzine HCl (Hydroxyzine Hcl 25 Mg Tablet) 25 mg PO Q6H PRN PRN Reason: Anxiety Last Admin: 02/08/23 00:49 Dose: 25 mg [employer] [place] Carbonate ([employer] [place] Carbonate Er 300 Mg Tablet.Er) 600 mg PO BID YUE Last Admin: 02/09/23 09:34 Dose: 600 mg Magnesium Hydroxide (Milk Of Magnesia 30 Ml Oral.Susp) 30 ml PO DAILY PRN PRN Reason: Constipation Nicotine Polacrilex (Nicotine Polacrilex 2 Mg Gum) 4 mg BUCCAL Q2H PRN PRN Reason: Nicotine Cravings Quetiapine Fumarate (Quetiapine Fumarate 50 Mg Tablet) 150 mg PO BEDTIME YUE Quetiapine Fumarate (Quetiapine Fumarate 50 Mg Tablet) 50 mg PO BEDTIME PRN PRN Reason: insomnia Allergies Allergies Allergy/AdvReac Type Severity Reaction Status Date / Time No Known Allergies Allergy Verified 02/05/23 16:49 Assessment & Plan Assessment & Plan (1) Bipolar disorder: Status: Acute Code(s): F31.9 - Bipolar disorder, unspecified (2) Hypertension: Status: Acute Code(s): I10 - Essential (primary) hypertension Plan 02/07: lithium trial for mood lability and mixed josh presentation. decrease HCTZ from 25 mg to 12.5 mg due to complications with kidney/lithium. T/C DC entirely and use of another anti-hypertensive as indicated. 02/08: feeling well on lithium. DC HCTZ today, increase norvasc to 10 mg daily. trend BP and will likely need to add another BP med. start seroquel 200 QHS for insomnia, with 100 mg PRN. 3-day in, expires sunday. 02/09: BP in adequate control. monitor daily and add second antihypertensive as needed. slept well last night. continue current mgmt. checks labs sunday morning. 3-day expires sunday, but pt may rescind. improving. Reason for continued inpatient stay Substantial Risk for: inability to function and rapid decompensation Time Spent With Patient Time: Total time managing care of this patient today _25___ minutes.
[2023-02-09] MEDS: QUEtiapine Fumarate 50 MG TABLET 150 MG PO (21:28)
[2023-02-09 21:31] VITALS: BP 134/69; PULSE 88; TEMP 36.7; O2SAT 96
[2023-02-10 00:04] VITALS: BP 139/88; PULSE 120; O2SAT 98
[2023-02-10 00:05] VITALS: BP 147/87; PULSE 121; O2SAT 96
--- NOTE | 2023-02-10 00:06 | PC.NURSE ---
Addendum entered by Ifeoma Harkins RN 02/10/23 00:28: fall witnessed by staff. occurred in front of nurses station. used wall when fell. did not hit head or neck. Original Note: fall-patient had been asleep in sensory. woke up and when walking in hallway fell to the floor. patient reported ''I tripped on my shoes'' was wearing hospital non skid socks with slip on sandals. no injury. no gait disturbance. Dr. Elliott notified. no new orders. patient is currently in day room having a snack.
--- NOTE | 2023-02-10 07:39 | PC.NURSE ---
Patient is OOB and bright. denies any pain, discomfort or dizziness from last nights fall.
[2023-02-10 08:14] VITALS: BP 144/87; PULSE 85; RESP 18; TEMP 36.4; O2SAT 100
[2023-02-10] MEDS: Lithium Carbonate ER 300 MG TABLET.ER 600 MG PO ×2 (09:03→21:48)
[2023-02-10] MEDS: amLODIPine Besylate 10 MG TABLET PO (09:03)
--- NOTE | 2023-02-10 13:37 | HO.PSYCHPN ---
Subjective Subjective Date of Service: 02/10/23 Reason For Visit: mood dysregualtion Interim History: The nursing staff reported the patient signed he a 3 day notice and he plans to be discharged tomorrow. He has been anxious and depressive internally preoccupied and staff has noticed that he has been responding to internal stimuli but he adamantly denies any symptoms. He had a fall yesterday but so far no medical problems. On interview the patient denies new symptoms he looks internally preoccupied. Mental Status Exam Mental Status Exam Patient Appearance: Appropriate Patient Orientation: Person and Situation Level of Consciousness: Awake and Appropriate Patient Behavior: Guarded and Passive Mood Description: Withdrawn Affect Description: Constricted Patient Cognition Impaired: Yes Ability to Follow Directions: Good Speech Pattern: Clear Hallucinations: None Delusions: Paranoid Ideation Thought Process: Distracted and Slowed Thinking Thought Content: positive for [place] of Content Judgement: Poor Diagnostics Vital Signs (24Hr): Vital Signs - 24 hr 02/09/23 21:31 02/10/23 00:04 02/10/23 00:05 Temperature 98.1 F Pulse Rate 88 120 H 121 H Respiratory Rate Blood Pressure 134/69 139/88 147/87 H Pulse Oximetry 96 98 96 Oxygen Delivery Method Room Air Room Air Room Air 02/10/23 08:14 Temperature 97.6 F Pulse Rate 85 Respiratory Rate 18 Blood Pressure 144/87 H Pulse Oximetry 100 Oxygen Delivery Method Room Air BMI result Body Mass Index 37.4 Labs 02/07/23 09:13 02/05/23 16:54 Medications Medications Current Medications Acetaminophen (Acetaminophen 325 Mg Tablet) 650 mg PO Q6H PRN PRN Reason: Headache/Pain Mild Scale (1-3) Al Hydroxide/Mg Hydroxide (Magnesium Hydrox/Alum Hydrox 30 Ml Oral.Susp) 30 ml PO Q6H PRN PRN Reason: Heartburn/Nausea Amlodipine Besylate (Amlodipine Besylate 10 Mg Tablet) 10 mg PO DAILY YUE; Protocol Last Admin: 02/10/23 09:03 Dose: 10 mg Hydroxyzine HCl (Hydroxyzine Hcl 25 Mg Tablet) 25 mg PO Q6H PRN PRN Reason: Anxiety Last Admin: 02/08/23 00:49 Dose: 25 mg [place] Carbonate ([place] Carbonate Er 300 Mg Tablet.Er) 600 mg PO BID YUE Last Admin: 02/10/23 09:03 Dose: 600 mg Magnesium Hydroxide (Milk Of Magnesia 30 Ml Oral.Susp) 30 ml PO DAILY PRN PRN Reason: Constipation Nicotine Polacrilex (Nicotine Polacrilex 2 Mg Gum) 4 mg BUCCAL Q2H PRN PRN Reason: Nicotine Cravings Quetiapine Fumarate (Quetiapine Fumarate 50 Mg Tablet) 150 mg PO BEDTIME YUE Last Admin: 02/09/23 21:28 Dose: 150 mg Quetiapine Fumarate (Quetiapine Fumarate 50 Mg Tablet) 50 mg PO BEDTIME PRN PRN Reason: insomnia Allergies Allergies Allergy/AdvReac Type Severity Reaction Status Date / Time No Known Allergies Allergy Verified 02/05/23 16:49 Assessment & Plan Assessment & Plan (1) Bipolar disorder: Status: Acute Code(s): F31.9 - Bipolar disorder, unspecified (2) Hypertension: Status: Acute Code(s): I10 - Essential (primary) hypertension Plan 02/07: lithium trial for mood lability and mixed josh presentation. decrease HCTZ from 25 mg to 12.5 mg due to complications with kidney/lithium. T/C DC entirely and use of another anti-hypertensive as indicated. 02/08: feeling well on lithium. DC HCTZ today, increase norvasc to 10 mg daily. trend BP and will likely need to add another BP med. start seroquel 200 QHS for insomnia, with 100 mg PRN. 3-day in, expires sunday. 02/09: BP in adequate control. monitor daily and add second antihypertensive as needed. slept well last night. continue current mgmt. checks labs sunday morning. 3-day expires sunday, but pt may rescind. improving. 02/10 no changes on mental status Reason for continued inpatient stay Substantial Risk for: inability to function, rapid decompensation and med/psych decompensation Time Spent With Patient Time: Total time managing care of this patient today __20__ minutes.
[2023-02-10] MEDS: QUEtiapine Fumarate 50 MG TABLET 150 MG PO (21:48)
[2023-02-10 21:51] VITALS: BP 154/84; PULSE 86; TEMP 36.7; O2SAT 100
[2023-02-11 08:39] LABS: Lithium 0.64 mmol/L (0.60-1.20)
[2023-02-11 09:50] VITALS: BP 136/86; PULSE 84; RESP 16; TEMP 36.7; O2SAT 99
[2023-02-11] MEDS: Lithium Carbonate ER 300 MG TABLET.ER 600 MG PO ×2 (09:59→22:00)
[2023-02-11] MEDS: amLODIPine Besylate 10 MG TABLET PO (10:00)
--- NOTE | 2023-02-11 11:34 | HO.PSYCHPN ---
Subjective Subjective Date of Service: 02/11/23 Reason For Visit: mood dysregualtion Subjective Notes: Conditional Voluntary Interim History: The nursing staff reported the patient had been compliant with medications, he denies suicidal ideation. On interview the patient reports that he wants to leave tomorrow since he is in a 3 day notice he adamantly denies suicidal or homicidal thoughts no safety concerns at this moment. Mental Status Exam Mental Status Exam Patient Appearance: Well Grooomed and Appropriate Patient Orientation: Person and Situation Level of Consciousness: Awake and Appropriate Patient Behavior: Guarded and Passive Mood Description: Withdrawn Affect Description: Constricted Ability to Follow Directions: Good Speech Pattern: Clear Hallucinations: None Delusions: Not Present Thought Process: Slowed Thinking Thought Content: positive for [place] Judgement: Fair Diagnostics Vital Signs (24Hr): Vital Signs - 24 hr 02/10/23 21:51 Temperature 98.0 F Pulse Rate 86 Blood Pressure 154/84 H Pulse Oximetry 100 Oxygen Delivery Method Room Air BMI result Body Mass Index 37.4 Labs 02/07/23 09:13 02/05/23 16:54 Labs: Laboratory Results - last 48 hr 02/11/23 08:07 [place] 0.64 Medications Medications Current Medications Acetaminophen (Acetaminophen 325 Mg Tablet) 650 mg PO Q6H PRN PRN Reason: Headache/Pain Mild Scale (1-3) Al Hydroxide/Mg Hydroxide (Magnesium Hydrox/Alum Hydrox 30 Ml Oral.Susp) 30 ml PO Q6H PRN PRN Reason: Heartburn/Nausea Amlodipine Besylate (Amlodipine Besylate 10 Mg Tablet) 10 mg PO DAILY YUE; Protocol Last Admin: 02/11/23 10:00 Dose: 10 mg Hydroxyzine HCl (Hydroxyzine Hcl 25 Mg Tablet) 25 mg PO Q6H PRN PRN Reason: Anxiety Last Admin: 02/08/23 00:49 Dose: 25 mg [place] Carbonate ([place] Carbonate Er 300 Mg Tablet.Er) 600 mg PO BID YUE Last Admin: 02/11/23 09:59 Dose: 600 mg Magnesium Hydroxide (Milk Of Magnesia 30 Ml Oral.Susp) 30 ml PO DAILY PRN PRN Reason: Constipation Nicotine Polacrilex (Nicotine Polacrilex 2 Mg Gum) 4 mg BUCCAL Q2H PRN PRN Reason: Nicotine Cravings Quetiapine Fumarate (Quetiapine Fumarate 50 Mg Tablet) 150 mg PO BEDTIME YUE Last Admin: 02/10/23 21:48 Dose: 150 mg Quetiapine Fumarate (Quetiapine Fumarate 50 Mg Tablet) 50 mg PO BEDTIME PRN PRN Reason: insomnia Allergies Allergies Allergy/AdvReac Type Severity Reaction Status Date / Time No Known Allergies Allergy Verified 02/05/23 16:49 Assessment & Plan Assessment & Plan (1) Bipolar disorder: Status: Acute Code(s): F31.9 - Bipolar disorder, unspecified (2) Hypertension: Status: Acute Code(s): I10 - Essential (primary) hypertension Plan 02/07: lithium trial for mood lability and mixed josh presentation. decrease HCTZ from 25 mg to 12.5 mg due to complications with kidney/lithium. T/C DC entirely and use of another anti-hypertensive as indicated. 02/08: feeling well on lithium. DC HCTZ today, increase norvasc to 10 mg daily. trend BP and will likely need to add another BP med. start seroquel 200 QHS for insomnia, with 100 mg PRN. 3-day in, expires sunday. 02/09: BP in adequate control. monitor daily and add second antihypertensive as needed. slept well last night. continue current mgmt. checks labs sunday morning. 3-day expires sunday, but pt may rescind. improving. 02/10 no changes on mental status 02/11 keep same treatment Reason for continued inpatient stay Substantial Risk for: inability to function, rapid decompensation and med/psych decompensation Time Spent With Patient Time: Total time managing care of this patient today __20__ minutes.
[2023-02-11] MEDS: hydrOXYzine HCL 25 MG TABLET PO (18:41)
[2023-02-11 21:55] VITALS: BP 150/90; PULSE 96; RESP 18; O2SAT 99
[2023-02-11] MEDS: QUEtiapine Fumarate 50 MG TABLET 150 MG PO (22:00)
[2023-02-11] MEDS: QUEtiapine Fumarate 50 MG TABLET PO (23:31)
[2023-02-12 08:30] VITALS: BP 130/74; PULSE 88; RESP 18; TEMP 36.2; O2SAT 99
[2023-02-12] MEDS: amLODIPine Besylate 10 MG TABLET PO (08:38)
[2023-02-12] MEDS: Lithium Carbonate ER 300 MG TABLET.ER 600 MG PO (08:39)
[2023-02-12 08:41] LABS: MANUAL DIFF FLAG NO
[2023-02-12 08:44] LABS: Basophils Absolute Auto 0.1 X10*3/uL (0.0-0.2); Basophils Percent Auto 0.8 % (0-2); Eosinophils Absolute Auto 0.4 X10*3/uL (0.0-0.4); Eosinophils Percent Auto 3.8 % (0-4); Hematocrit 46.3 % (42.0-52.0); Hemoglobin 14.8 g/dl (14.0-18.0); Imm Gran Abs Auto 0.05 X10*3/uL (0.00-0.03); Imm Gran Pct Auto 0.5 % (0.0-0.4); Lymphocytes Absolute Auto 3.4 X10*3/uL (1.2-4.9); Lymphocytes Percent Auto 32.3 % (20-40); Mean Corpuscular Hemoglobin 27.7 pg (27.0-33.0); Mean Corpuscular Volume 86.5 fL (80.0-98.0); Mean Platelet Volume 12.3 fL (9.4-12.4); Monocytes Absolute Auto 0.7 X10*3/uL (0.1-1.2); Monocytes Percent Auto 6.6 % (2-11); Neutrophils Absolute Auto 5.9 x10*3/uL (2.0-8.3); Platelet Count 224 X10*3/uL (160-400); Red Blood Count 5.35 X10*6/uL (4.60-5.80); Red Cell Distribution Width 13.4 % (11.0-16.0); White Blood Count 10.5 X10*3/uL (4.8-10.8)
[2023-02-12 09:01] LABS: Lithium 0.63 mmol/L (0.60-1.20)
[2023-02-12 09:07] LABS: Anion Gap 11 (12-20); Blood Urea Nitrogen 11 mg/dL (9-16); Calcium 9.4 mg/dL (8.4-10.2); Carbon Dioxide 29 mmol/L (22-29); Chloride 104 mmol/L (96-108); Creatinine Clr Calc Pharmacy 150.6; Estimated Glomerular Filt Rate > 60; Glucose Random 101 mg/dL (60-115); Potassium 4.4 mmol/L (3.3-5.1); Sodium 140 mmol/L (135-145)
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
== END 2023-02-12 11:09 | disposition home or self-care (01) | DRG 753 ==
LOC: HO.ED 19:06 → HO.PADLT16 02-06 16:04
PROVIDERS: Admitting Provider Psychiatry & Neurology Psychiatry; Emergency Provider Emergency Medicine; Visit Provider Psychiatry & Neurology Psychiatry
DX: F31.10 Bipolar disorder, current episode manic without psychotic features, unspecified (principal); F17.210 Nicotine dependence, cigarettes, uncomplicated; I10 Essential (primary) hypertension; Z20.822 Contact with and (suspected) exposure to COVID-19; Z71.6 Tobacco abuse counseling; Z79.899 Other long term (current) drug therapy
CPT/HCPCS: 36415; 80048; 80053; 80061; 80178; 80307; 81001; 83036; 85025; 87635; 99285; S9485

== ENCOUNTER → 2023-02-06 15:46 | Outpatient (BNV) | payer OTHER, SELFPAY | PROVIDERS: Admitting Provider Psychiatry & Neurology Psychiatry; Emergency Provider Emergency Medicine; Visit Provider Psychiatry & Neurology Psychiatry | DX: F31.9 Bipolar disorder, unspecified (principal); I10 Essential (primary) hypertension | CPT/HCPCS: 90792; 99231; 99232; 99238 ==

== ENCOUNTER 2023-03-01 01:53 | Inpatient (IN) | payer OTHER, SELFPAY ==
--- NOTE | 2023-03-01 | ECG_ITS ---
Test Reason : CHECK PROLONG QT Blood Pressure : / mmHG Vent. Rate : 080 BPM Atrial Rate : 080 BPM P-R Int : 162 ms QRS Dur : 106 ms QT Int : 406 ms P-R-T Axes : 059 -11 023 degrees QTc Int : 468 ms Normal sinus rhythm with sinus arrhythmia Normal ECG When compared with ECG of 20-JAN-2022 16:07, No significant change was found Referred By: Giovanny Rose Electronically Signed By:DINORAH FULLER
--- NOTE | ~2023-03-01 | XR_ITS ---
EXAMINATION: XR CHEST CLINICAL INFORMATION: Evaluate for pneumonia COMPARISON: None available. TECHNIQUE: Frontal view of the chest was obtained. FINDINGS: No significant abnormality is noted involving the heart, lungs, mediastinum, bony thorax or soft tissues. XR/XR chest 1V IMPRESSION: Unremarkable examination.
[2023-03-01 01:59] VITALS: BP 144/98; PULSE 131; RESP 18; TEMP 36.9; O2SAT 98; BMI 37.1
[2023-03-01 02:21] VITALS: BP 140/86; PULSE 118; RESP 17; TEMP 36.7; O2SAT 100
[2023-03-01 02:47] LABS: Hematocrit 42.1 % (42.0-52.0); Hemoglobin 13.9 g/dl (14.0-18.0); Mean Corpuscular Hemoglobin 27.4 pg (27.0-33.0); Mean Corpuscular Volume 82.9 fL (80.0-98.0); Mean Platelet Volume 10.6 fL (9.4-12.4); Platelet Count 278 X10*3/uL (160-400); Red Blood Count 5.08 X10*6/uL (4.60-5.80); Red Cell Distribution Width 13.6 % (11.0-16.0); White Blood Count 18.3 X10*3/uL (4.8-10.8)
[2023-03-01 02:59] LABS: COVID-19 Test Negative (Negative); IDNOW Serial# 08D9AD1C
[2023-03-01 03:00] LABS: Ethanol < 10 mg/dL
[2023-03-01 03:02] LABS: Alanine Aminotransferase 55 U/L (0-40); Alkaline Phosphatase 136 U/L (39-117); Anion Gap 17 (12-20); Aspartate Amino Transferase 23 U/L (5-37); Bilirubin Total 0.4 mg/dL (0.0-1.0); Blood Urea Nitrogen 15 mg/dL (9-16); Calcium 9.4 mg/dL (8.4-10.2); Carbon Dioxide 25 mmol/L (22-29); Chloride 102 mmol/L (96-108); Creatinine Clr Calc Pharmacy 155.8; Estimated Glomerular Filt Rate > 60; Glucose Random 93 mg/dL (60-115); Potassium 3.5 mmol/L (3.3-5.1); Sodium 140 mmol/L (135-145); Total Protein 7.4 g/dL (6.5-8.0)
[2023-03-01 03:18] LABS: Lithium < 0.10 mmol/L (0.60-1.20)
--- NOTE | 2023-03-01 06:27 | PC.NURSE ---
Patient has been sleeping since he arrived in ED POD, no distress observed/reported, blood work completed/resulted, pending urine sample, med rec completed/pending provider's approval, care consult ordered/pending evaluation, awaiting to be seen by the provider, VSS, will continue to monitor.
--- NOTE | 2023-03-01 07:51 | ED_ITS ---
HPI - Psych General Chief Complaint: Psychiatric Symptoms Stated Complaint: psych Time Seen by Provider: 03/01/23 06:31 Source: patient Mode of arrival: ambulatory Limitations: no limitations History of Present Illness HPI Narrative: 33-year-old male history of bipolar, depression, and HTN presents to the ED for suicidal ideation. Patient has been without his lithium for a while. Patient states she only received 7 days of lithium. Patient feels restless. Patient denies any physical complaints. Related Data Home Medications Medication Instructions Recorded Confirmed amlodipine 10 mg tablet 10 mg PO DAILY 03/01/23 03/01/23 lithium carbonate 300 mg 600 mg PO BID 03/01/23 03/01/23 tablet,extended release quetiapine 50 mg tablet 150 mg PO BEDTIME 03/01/23 03/01/23 Allergies Allergy/AdvReac Type Severity Reaction Status Date / Time No Known Allergies Allergy Verified 03/01/23 02:07 Review of Systems Review of Systems: Suicidal ideation Yes all other systems are reviewed and are negative [facility] Past Medical History Medical History (Updated 03/01/23 @ 15:33 by [place]) Bipolar disorder Social History Social History Household Members: Family Household Members Other:: mom, niece, step father and sister Housing: Apartment Do you presently have visiting nurse or other home services: No Alcohol intake: never Patient Tobacco Use Status: Current someday Tobacco user Tobacco use type: Cigarette Cigarettes Per Day: 1 Years Smoked: 10 Smoked in Last 30 Days: No e-Cigarette/Vaping Use: Former Use Second Hand Smoke Exposure: No Use of substances other than those prescribed or required for medical reasons: No Substance Use Type: Marijuana and Caffiene Advance Directives: No Advance Directives Information Provided: No Healthcare Proxy: No Guardian: No service: No Sexual orientation: Straight/Heterosexual Physical Exam Vital Signs: Vital Signs: Last Vital Signs Temp 97.4 F 03/01/23 12:34 Pulse 88 03/01/23 12:34 Resp 18 03/01/23 12:34 BP 120/76 03/01/23 12:34 Pulse Ox 99 03/01/23 12:34 O2 Del Method Room Air 03/01/23 12:34 BMI result Body Mass Index 37.1 Const: General: cooperative, healthy appearing, comfortable, no acute distress, well developed, alert, awake and Physically active Orientation/consciousness: oriented to person, oriented to place, oriented to time and patient oriented x3 HEENT: Head: Yes normal to inspection, Yes No palpable skull fracture present, Yes normocephalic, Yes atraumatic and No abrasion Eyes: General: appearance normal, both eyes and all related structures Neck: Neck: Yes normal visual inspection, Yes full ROM, Yes no lymphadenopath y, Yes no meningeal signs, Yes trachea midline, Yes supple, No anterior neck swelling and No tender Chest: Chest palpation & inspection: normal inspection of the chest and normal palpation of entire chest wall Resp: Effort & Inspection: normal respiratory effort and able to speak in complete sentences Auscultation: clear to auscultation bilaterally Cardio: Jugular venous distension: no JVD Heart sounds: S1 normal heart sound present and S2 normal heart sound present GI: Inspection: Yes normal to inspection and No abdominal wall ecchymosis Palpation (GI): Soft to palpation, not firm, nontender, no guarding and not rigid : General: No CVA tenderness and Yes no CVA tenderness Back/Spine/Pelvis: Back: no CVA tenderness, No CVA tenderness and No back tenderness Skin: General skin exam: no rashes or lesions noted and elasticity normal Neuro: General: oriented to person, oriented to place, oriented to time, patient oriented x3, gait normal, tone normal, moves all extremities, Normal light touch and pain sensation, no meningeal signs, no focal motor deficits, CN's II-XI intact bilaterally and normal sensation to monofilament Extrem: General: Yes normal to inspection and Yes full ROM Psych: Appearance: grossly normal, well kempt and not disheveled Course Course Course Narrative: 33 yold male with suicidal ideation history of bipolar depression high blood pressure. Patient waiting for care team evaluation[place] [id number] the patient is asymptomatic. No belly pain, URI symptoms, or rash on the body. No symptoms. Waiting for UA and chest x-ray. Patient is not toxic appearing. COVID negative Reevaluation(s) Reevaluation #1: Patient medically cleared. No source of infection. UA and chest x-ray normal. Patient not toxic appearing. Not suspecting sepsis. Patient seen by care team consulted and will be admitted to psych inpatient. Vital signs improved. Patient started on home meds. Time: 15:28 Medications Administered Generic Name Dose Route Start Last Admin Trade Name Freq PRN Reason Stop Dose Admin Amlodipine Besylate 10 mg 03/01/23 09:00 03/01/23 08:59 Amlodipine Besylate 10 Mg Tablet PO 10 mg DAILY YUE Administration Protocol [place] Carbonate 600 mg 03/01/23 09:00 03/01/23 08:59 [place] Carbonate Er 300 Mg Tablet.Er PO 600 mg BID YUE Administration Quetiapine Fumarate 150 mg 03/01/23 08:45 03/01/23 08:59 Quetiapine Fumarate 50 Mg Tablet PO 150 mg BEDTIME YUE Administration Medical Decision Making Medical Decision Making [facility] Narrative: 33-year-old male presents to ED for suicidal ideation has no history of depression and bipolar. Patient has no plan. Patient medically cleared. Patient evaluated by care team clinical application consultant for admission. Chest x-ray clear negative pneumonia. Differential Diagnosis Differential Diagnoses: The differential diagnosis associated with the presentation includes (Pneumonia, UTI, sepsis, depression, bipolar, manic, suicidal, homicidal) Admission/Observation Consideration of admission/observation: Escalation of care including admission/observation considered Consult Healthcare Provider Management of the patient was discussed with: Silk Opener (Care team clinical application consultant) Lab Data [facility] Lab Attestation statement: I reviewed the patient's lab results. 03/01/23 02:39 03/01/23 02:39 Labs: Lab Results 03/01/23 03/01/23 03/01/23 Range/Units 02:38 02:39 02:39 WBC 18.3 H (4.8-10.8) X10*3/uL RBC 5.08 (4.60-5.80) X10*6/uL Hgb 13.9 L (14.0-18.0) g/dl Hct 42.1 (42.0-52.0) % MCV 82.9 (80.0-98.0) fL MCH 27.4 (27.0-33.0) pg MCHC 33.0 (31.0-36.0) g/dl RDW 13.6 (11.0-16.0) % Plt Count 278 (160-400) X10*3/uL MPV 10.6 (9.4-12.4) fL Absolute Nucleated RBC 0.000 (0.0-0.012) X10*3/uL Nucleated RBC % (auto) 0.0 (0.0-0.2) /100WBC Sodium 140 (135-145) mmol/L Potassium 3.5 D (3.3-5.1) mmol/L Chloride 102 (96-108) mmol/L Carbon Dioxide 25 (22-29) mmol/L Anion Gap 17 (12-20) BUN 15 (9-16) mg/dL Creatinine 0.77 (0.5-1.4) mg/dL Estim Creat Clear Calc 155.8 Estimated GFR > 60 Random Glucose 93 (60-115) mg/dL Calcium 9.4 (8.4-10.2) mg/dL Total Bilirubin 0.4 (0.0-1.0) mg/dL AST 23 (5-37) U/L ALT 55 H (0-40) U/L Alkaline Phosphatase 136 H (39-117) U/L Total Protein 7.4 (6.5-8.0) g/dL Albumin 4.0 (3.5-5.0) g/dL Urine Color Urine Appearance Urine pH (5.0-9.0) Ur Specific [place] (1.005-1.025) Urine Protein (Neg-Trace) mg/dL Urine Glucose (UA) (Negative) mg/dL Urine Ketones (Negative) mg/dL Urine Blood (Negative) Urine Nitrite (Negative) Ur Leukocyte Esterase (Negative) Urine Opiates Screen (Not Detect) Urine Fentanyl Screen (Not Detect) Ur Barbiturates Screen (Not Detect) Ur Phencyclidine Scrn (Not Detect) Ur Amphetamines Screen (Not Detect) U Benzodiazepines Scrn (Not Detect) [place] (0.60-1.20) mmol/L Urine Cocaine Screen (Not Detect) U Marijuana (THC) Screen (Not Detect) Ethyl Alcohol mg/dL COVID-19 ([facility]) Negative (Negative) COVID-19 Clin Com See Note 03/01/23 03/01/23 03/01/23 Range/Units 02:39 02:39 09:05 WBC (4.8-10.8) X10*3/uL RBC (4.60-5.80) X10*6/uL Hgb (14.0-18.0) g/dl Hct (42.0-52.0) % MCV (80.0-98.0) fL MCH (27.0-33.0) pg MCHC (31.0-36.0) g/dl RDW (11.0-16.0) % Plt Count (160-400) X10*3/uL MPV (9.4-12.4) fL Absolute Nucleated RBC (0.0-0.012) X10*3/uL Nucleated RBC % (auto) (0.0-0.2) /100WBC Sodium (135-145) mmol/L Potassium (3.3-5.1) mmol/L Chloride (96-108) mmol/L Carbon Dioxide (22-29) mmol/L Anion Gap (12-20) BUN (9-16) mg/dL Creatinine (0.5-1.4) mg/dL Estim Creat Clear Calc Estimated GFR Random Glucose (60-115) mg/dL Calcium (8.4-10.2) mg/dL Total Bilirubin (0.0-1.0) mg/dL AST (5-37) U/L ALT (0-40) U/L Alkaline Phosphatase (39-117) U/L Total Protein (6.5-8.0) g/dL Albumin (3.5-5.0) g/dL Urine Color Urine Appearance Urine pH (5.0-9.0) Ur Specific [place] (1.005-1.025) Urine Protein (Neg-Trace) mg/dL Urine Glucose (UA) (Negative) mg/dL Urine Ketones (Negative) mg/dL Urine Blood (Negative) Urine Nitrite (Negative) Ur Leukocyte Esterase (Negative) Urine Opiates Screen Not Detected (Not Detect) Urine Fentanyl Screen Not Detected (Not Detect) Ur Barbiturates Screen Not Detected (Not Detect) Ur Phencyclidine Scrn Not Detected (Not Detect) Ur Amphetamines Screen Not Detected (Not Detect) U Benzodiazepines Scrn Not Detected (Not Detect) [place] < 0.10 L (0.60-1.20) mmol/L Urine Cocaine Screen Not Detected (Not Detect) U Marijuana (THC) Screen POSITIVE H (Not Detect) Ethyl Alcohol < 10 mg/dL COVID-19 ([facility]) (Negative) COVID-19 Clin Com 03/01/23 Range/Units 09:05 WBC (4.8-10.8) X10*3/uL RBC (4.60-5.80) X10*6/uL Hgb (14.0-18.0) g/dl Hct (42.0-52.0) % MCV (80.0-98.0) fL MCH (27.0-33.0) pg MCHC (31.0-36.0) g/dl RDW (11.0-16.0) % Plt Count (160-400) X10*3/uL MPV (9.4-12.4) fL Absolute Nucleated RBC (0.0-0.012) X10*3/uL Nucleated RBC % (auto) (0.0-0.2) /100WBC Sodium (135-145) mmol/L Potassium (3.3-5.1) mmol/L Chloride (96-108) mmol/L Carbon Dioxide (22-29) mmol/L Anion Gap (12-20) BUN (9-16) mg/dL Creatinine (0.5-1.4) mg/dL Estim Creat Clear Calc Estimated GFR Random Glucose (60-115) mg/dL Calcium (8.4-10.2) mg/dL Total Bilirubin (0.0-1.0) mg/dL AST (5-37) U/L ALT (0-40) U/L Alkaline Phosphatase (39-117) U/L Total Protein (6.5-8.0) g/dL Albumin (3.5-5.0) g/dL Urine Color Yellow Urine Appearance Clear Urine pH 5.5 (5.0-9.0) Ur Specific [place] 1.020 (1.005-1.025) Urine Protein Negative (Neg-Trace) mg/dL Urine Glucose (UA) Negative (Negative) mg/dL Urine Ketones 15 (Negative) mg/dL Urine Blood Negative (Negative) Urine Nitrite Negative (Negative) Ur Leukocyte Esterase Negative (Negative) Urine Opiates Screen (Not Detect) Urine Fentanyl Screen (Not Detect) Ur Barbiturates Screen (Not Detect) Ur Phencyclidine Scrn (Not Detect) Ur Amphetamines Screen (Not Detect) U Benzodiazepines Scrn (Not Detect) [place] (0.60-1.20) mmol/L Urine Cocaine Screen (Not Detect) U Marijuana (THC) Screen (Not Detect) Ethyl Alcohol mg/dL COVID-19 ([facility]) (Negative) COVID-19 Clin Com Discharge Plan Discharge Clinical Impression: Bipolar disorder Patient Disposition: Admitted As In[facility] Last Done: 03/01/23 15:49 Admission Worksheet (ED) Last Done: 03/01/23 15:49
--- NOTE | 2023-03-01 08:06 | PC.NURSE ---
Pt sitting in chair, drinking coffee. No c/o. Awaiting care team [facility]
[2023-03-01] MEDS: Lithium Carbonate ER 300 MG TABLET.ER 600 MG PO ×2 (08:59→21:13)
[2023-03-01] MEDS: QUEtiapine Fumarate 50 MG TABLET 150 MG PO ×2 (08:59→21:13)
[2023-03-01] MEDS: amLODIPine Besylate 10 MG TABLET PO (08:59)
[2023-03-01 09:23] LABS: Amphetamine Screen Urine Not Detected (Not Detect); Barbiturates, Urine Not Detected (Not Detect); Benzodiazepines Screen Urine Not Detected (Not Detect); Cannabinoid Screen Urine POSITIVE (Not Detect); Cocaine Screen Urine Not Detected (Not Detect); Fentanyl, urine Not Detected (Not Detect); Opiate Screen Urine Not Detected (Not Detect); Phencyclidine Screen Urine Not Detected (Not Detect)
[2023-03-01 09:44] LABS: Appearance Urine Clear; Color Urine Yellow; Glucose Urine UA Negative (Negative); Leukocyte Esterase Urine Negative (Negative); Nitrite Urine Negative (Negative); PH 5.5 (5.0-9.0); Urine Blood Negative (Negative); Urine Ketones 15 mg/dL (Negative); Urine Protein Negative (Neg-Trace)
--- NOTE | 2023-03-01 09:44 | PC.NURSE ---
Alert and oriented, calm and cooperative. Resting in bed at this time with eyes closed.
[2023-03-01 12:34] VITALS: BP 120/76; PULSE 88; RESP 18; TEMP 36.3; O2SAT 99
--- NOTE | 2023-03-01 15:53 | PC.NURSE ---
Report given to accepting unit. Patient aware of transfer. Denies SI at this time, resting comfortably in bed with eyes closed.
--- OUTSIDE RECORDS SUMMARY | 2023-03-01 16:25 | XMS_ITS | Continuity of Care Document ---
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 Start Date: 01/16/22 Status: Ordered hydrOXYzine hydrochloride 25 mg oral tablet 1 tablet = 25 mg, By Mouth, 2 times a day, PRN Anxiety, for 10 days, # 20 tablet, 0 Refills, Acute 01/27/22 8:54:00 EDT, 01/17/22 8:54:00 EDT, Tablet, Partial fill upon patient request if the prescription is for a schedule II opioid drug. Start Date: 01/17/22 Stop Date: 01/27/22 Status: Ordered QUEtiapine 25 mg oral tablet 50 mg, 2, tablet, By Mouth, Daily at bedtime, Refills 0, Maintenance, 01/17/22 8:54:00 EDT, Partialfill upon patient request if the prescription is for a schedule II opioid drug. Start Date: 01/17/22 Status: Ordered Zoloft 25 mg oral tablet 1 tablet = 25 mg, By Mouth, Daily, # 30 tablet, 0 Refills, Maintenance, 01/16/22 14:00:00 EDT, Tablet, Partial fill upon patient request if the prescription is for a schedule II opioid drug. Start Date: 01/16/22 Status: Ordered Problem List Condition Effective Dates Status Health Status Inform ant Obese class I(Confirmed) Active Results Radiology Reports * Exam Date Time Procedure Performing Provider Status 01/14/22 8:48 PM Chest Portable Lawrence Paulino; Auth (Maurisio ified) Notes: (Chest Portable) Reason For Exam: Shortness of Breath RESULT: Chest Portable Chest Portable Hx of Present Illness: Rcvd 50mg of Methadone by accident; Reason: Shortness of Breath; Clinical Question(s): CHF COMPARISON: None. FINDINGS: LINES AND TUBES: None. LUNGS AND PLEURA: Low lung volumes with crowding of the pulmonary vascularity. No pleural effusion. No pneumothorax. HEART, MEDIASTINUM AND JADYN: Heart is normal in size. Normal upper mediastinal and hilar contour. BONES AND SOFT TISSUES: No acute abnormality. IMPRESSION: Low lung volumes. No acute abnormality. WSN: [id number] Ordering Physician: Elaine Pinto Dictated By: Garcia Ramirez MD Dictated Date/Time: 01/14/22 8:54 pm Reviewed By: Garcia Ramirez MD Signed By: Garcia Ramirez MD Signed Date/Time: 01/14/22 8:54 pm Transcribed By: HAIDER Transcribed Date/Time: 01/14/22 8:52 pm Vital Signs Most recent to oldest [Reference Range]: 1 2 3 Height 168 cm (01/16/22 2:48 PM) 168 cm (01/16/22 10:51 AM) 168 cm (01/16/22 8:04 AM) Weight 98 kg (01/15/22 12:23 PM) Oxygen Saturation [94-100 %] 98 % (01/17/22 7:00 AM) 98 % (01/17/22 3:00 AM) 98 % (01/16/22 7:00 PM) Pulse Rate [55-90 bpm] 74 bpm (01/17/22 7:00 AM) 76 bpm (01/17/22 3:00 AM) 86 bpm (01/16/22 7:00 PM) Body Mass Index [18.5-24.99] 34.72 *>HHI* (01/15/22 12:23 PM) Blood Pressure [90-138/55-84 mm Hg] 159/96mm Hg *H* (01/17/22 7:00 AM) 145/90mm Hg *H* (01/17/22 3:00 AM) 149/88mm Hg *H* (01/16/22 7:00 PM) Respiratory Rate [16-30 br/min] 18 br/min (01/17/22 7:00 AM) 18 br/min (01/17/22 3:00 AM) 18 br/min (01/16/22 7:00 PM) Temperature [96.8-100.4 DegF] 98.0 DegF (01/17/22 7:00 AM) 97.9 DegF (01/17/22 3:00 AM) 98.1 DegF (01/16/22 7:00 PM) Mode of Delivery (Oxygen) Room air (01/17/22 7:00 AM) Room air (01/17/22 3:00 AM) Room air (01/16/22 7:00 PM) Blood pressure sites Arm, right (01/17/22 7:00 AM) Arm, right (01/17/22 3:00 AM) Arm, right (01/16/22 7:00 PM) Temperature Route Oral (01/17/22 7:00 AM) Oral (01/17/22 3:00 AM) Oral (01/16/22 7:00 PM) Dry Weight 98 kg (01/15/22 12:23 PM) Weight Obtained Via Patient/family state d (01/15/22 12:23 PM) Dry Weight Obtained Via Patient/family s tated (01/15/22 12:23 PM)
--- OUTSIDE RECORDS SUMMARY | 2023-03-01 16:25 | XMS_ITS | Continuity of Care Document ---
Author Name Unknown Organization [facility] ter Address [address] [place] [address]- Care Team Providers Care Linen Supply Load Builder Name Role Phone Not on Staff, PCP Primary Care Physician Unavail able Encounter [facility] [place] Date(s): 01/18/22 - 01/19/[address] [address]- Encounter Diagnosis Paranoia(Final) - 01/18/22 Discharge Disposition: Transfer to [facility] Facility Attending Physician: Garry Arciniega MD Admitting Physician: Garry Arciniega MD Referring Physician: Not on Staff, Referring MD [...] Status Inform ant Obese class I(Confirmed) Active Vital Signs Most recent to oldest [Reference Range]: 1 2 3 Oxygen Saturation [94-100 %] 99 % (01/19/22 5:34 PM) 100 % (01/19/22 12:57 PM) 100 % (01/19/22 5:50 AM) Pulse Rate [55-90 bpm] 93 bpm *H* (01/19/22 5:34 PM) 71 bpm (01/19/22 12:57 PM) 78 bpm (01/19/22 5:50 AM) Blood Pressure [90-138/55-84 mm Hg] 144/101mm Hg *H* (01/19/22 5:34 PM) 141/85mm Hg *H* (01/19/22 12:57 PM) 148/82mm Hg *H* (01/19/22 5:50 AM) Respiratory Rate [16-30 br/min] 16 br/min (01/19/22 5:34 PM) 18 br/min (01/19/22 12:57 PM) 18 br/min (01/19/22 5:50 AM) Temperature [96.8-100.4 DegF] 98.6 DegF (01/19/22 5:34 PM) 98.6 DegF (01/19/22 12:57 PM) 97.9 DegF (01/19/22 5:50 AM) Mode of Delivery (Oxygen) Room air (01/19/22 5:34 PM) Room air (01/19/22 12:57 PM) Room air (01/19/22 5:50 AM) Blood pressure sites Arm, left (01/19/22 5:34 PM) Arm, left (01/18/22 5:12 PM) Temperature Route Oral (01/19/22 5:34 PM) Oral (01/19/22 12:57 PM) Oral (01/19/22 5:50 AM)
--- NOTE | 2023-03-01 16:35 | PC.NURSE ---
Denies SI at this time, patient aware he is being transferred upstairs, escorted to M3 with security and RN escort.
[2023-03-01 16:40] VITALS: BP 146/91; PULSE 99; RESP 16; TEMP 37.3; O2SAT 98
--- NOTE | 2023-03-01 17:48 | PC.ADMIT ---
PT is a 33 year old bilingual male with a primary diagnosis of bipolar disorder. PT arrived on this unit at 16:40 from the POD via wheelchair and placed on 15 minute safety checks (no indication of self harm while in the POD). Legal Status: conditional voluntary. PT self presented to ED after walking 9 miles from home due to increased depression and anxiety as well as SI without a plan (pt currently denies SI/HI, AH/VH). PT has a hx of requiring IPLOC and was most recently admitted to on 02/06/23 and discharged on 02/12/23 but did not continue meds after the 7 day supply ran out. During admission process pt's eye contact is intense and he appears to be internally preoccupied. COVID neg, tox screen + for Cannabis but patient denies recent use. Of note pt had a WBC of 18.3, chest XR neg as well as U/A. Pt has not physical complaints at this time. VS stable. Admission orders obtained, all legals signed, treatment plan and safety tool completed. Promote safety and initiate tx plan.
[2023-03-02 07:56] LABS: Estimated Average Glucose 108 mg/dL; Hemoglobin A1c % 5.4 %
[2023-03-02 08:10] LABS: Alanine Aminotransferase 50 U/L (0-40); Albumin Level 4.2 g/dL (3.5-5.0); Alkaline Phosphatase 130 U/L (39-117); Anion Gap 14 (12-20); Aspartate Amino Transferase 23 U/L (5-37); Bilirubin Total 0.6 mg/dL (0.0-1.0); Blood Urea Nitrogen 13 mg/dL (9-16); Calcium 9.6 mg/dL (8.4-10.2); Carbon Dioxide 26 mmol/L (22-29); Chloride 102 mmol/L (96-108); Cholesterol 229 mg/dL; Creatinine Clr Calc Pharmacy 162.1; Estimated Glomerular Filt Rate > 60; Glucose Fasting 105 mg/dL (60-99); HDL Cholesterol 43 mg/dL; LDL Cholesterol Calculated 167 mg/dl; Sodium 138 mmol/L (135-145); Total Protein 7.7 g/dL (6.5-8.0); Triglycerides 96 mg/dL
[2023-03-02 08:26] LABS: Free T4 (Free Thyroxine) 1.04 ng/dL (0.71-1.85); Thyroid Stimulating Hormone 2.78 uIU/mL (0.32-4.0)
[2023-03-02] MEDS: amLODIPine Besylate 10 MG TABLET PO (08:31)
[2023-03-02] MEDS: Lithium Carbonate ER 300 MG TABLET.ER 600 MG PO ×2 (08:31→21:00)
[2023-03-02 08:39] LABS: Folate 8.2 ng/mL (> or = 4.0); Vitamin B12 385 pg/mL (200-900)
[2023-03-02 09:03] VITALS: BP 130/85; PULSE 100; RESP 20; TEMP 36.7; O2SAT 98
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
[2023-03-02 20:00] VITALS: BP 159/94; PULSE 107; RESP 18; TEMP 37.2; O2SAT 99
[2023-03-02] MEDS: QUEtiapine Fumarate 50 MG TABLET 150 MG PO (21:00)
[2023-03-03 06:00] VITALS: BP 143/82; PULSE 79; RESP 18; TEMP 36.7; O2SAT 98
[2023-03-03] MEDS: Lithium Carbonate ER 300 MG TABLET.ER 600 MG PO ×2 (08:07→21:40)
[2023-03-03] MEDS: amLODIPine Besylate 10 MG TABLET PO (08:08)
[2023-03-03 14:41] LABS: MANUAL DIFF FLAG NO
[2023-03-03 14:42] LABS: Basophils Absolute Auto 0.1 X10*3/uL (0.0-0.2); Basophils Percent Auto 0.5 % (0-2); Eosinophils Absolute Auto 0.5 X10*3/uL (0.0-0.4); Eosinophils Percent Auto 3.2 % (0-4); Hematocrit 47.6 % (42.0-52.0); Hemoglobin 15.4 g/dl (14.0-18.0); Imm Gran Abs Auto 0.13 X10*3/uL (0.00-0.03); Imm Gran Pct Auto 0.8 % (0.0-0.4); Lymphocytes Percent Auto 18.1 % (20-40); Mean Corpuscular HGB Conc 32.4 g/dl (31.0-36.0); Mean Corpuscular Hemoglobin 27.2 pg (27.0-33.0); Mean Platelet Volume 10.7 fL (9.4-12.4); Monocytes Percent Auto 5.8 % (2-11); Neutrophils Percent Auto 71.6 % (45-73); Platelet Count 297 X10*3/uL (160-400); Red Blood Count 5.67 X10*6/uL (4.60-5.80); Red Cell Distribution Width 13.9 % (11.0-16.0); White Blood Count 16.7 X10*3/uL (4.8-10.8)
[2023-03-03 14:59] LABS: Alanine Aminotransferase 55 U/L (0-40); Albumin Level 4.4 g/dL (3.5-5.0); Alkaline Phosphatase 135 U/L (39-117); Aspartate Amino Transferase 26 U/L (5-37); Bilirubin Direct 0.1 mg/dL (0.0-0.5); Bilirubin Total 0.3 mg/dL (0.0-1.0); Total Protein 8.1 g/dL (6.5-8.0)
--- NOTE | 2023-03-03 17:05 | P.PNPSI_ITS ---
Subjective Subjective Date of Service: 03/03/23 Reason For Visit: SI Interim History: slept well. no racing thoughts. feeling well. agreeable to discharge sunday. per staff, pleasant, racing thoughts yesterday. anx/dep. denies psych Sx in [place]. Mental Status Exam Mental Status Exam Narrative: alert, oriented and pleasant. Speech is soft-spoken. good eye contact. Affect is flexible, normo-intense. No acute signs of psychosis. No delusions. thoughts linear and logical. No SI/SIBI/HI/AVH expressed. Judgment is intact Diagnostics Vital Signs (24Hr): Vital Signs - 24 hr 03/02/23 20:00 03/03/23 06:00 Temperature 99.0 F 98.1 F Pulse Rate 107 H 79 Respiratory Rate 18 18 Blood Pressure 159/94 H 143/82 H Pulse Oximetry 99 98 Oxygen Delivery Method Room Air Room Air BMI result Body Mass Index 37.1 Labs 03/03/23 14:22 03/02/23 07:34 Labs: Laboratory Results - last 48 hr 03/02/23 03/02/23 03/02/23 07:34 07:34 07:34 WBC RBC Hgb Hct MCV MCH MCHC RDW Plt Count MPV Immature Gran % (Auto) Neut % (Auto) Lymph % (Auto) [place] % (Auto) Eos % (Auto) Baso % (Auto) Lymph # (Auto) [place] # (Auto) Eos # (Auto) Baso # (Auto) Abs Immat Gran (auto) Absolute Neuts (auto) Absolute Nucleated RBC Nucleated RBC % (auto) Sodium 138 Potassium 4.0 Chloride 102 Carbon Dioxide 26 Anion Gap 14 BUN 13 Creatinine 0.74 Estim Creat Clear Calc 162.1 Estimated GFR > 60 Fasting Glucose 105 H Estimat Average Glucose 108 Hemoglobin A1c % 5.4 Calcium 9.6 Total Bilirubin 0.6 Direct Bilirubin AST 23 ALT 50 H Alkaline Phosphatase 130 H Total Protein 7.7 Albumin 4.2 Triglycerides 96 Cholesterol 229 LDL Cholesterol, Calc 167 HDL Cholesterol 43 Vitamin B12 385 Folate 8.2 TSH 2.78 Free T4 1.04 03/03/23 03/03/23 14:22 14:22 WBC 16.7 H RBC 5.67 Hgb 15.4 Hct 47.6 MCV 84.0 MCH 27.2 MCHC 32.4 RDW 13.9 Plt Count 297 MPV 10.7 Immature Gran % (Auto) 0.8 H Neut % (Auto) 71.6 Lymph % (Auto) 18.1 L [place] % (Auto) 5.8 Eos % (Auto) 3.2 Baso % (Auto) 0.5 Lymph # (Auto) 3.0 [place] # (Auto) 1.0 Eos # (Auto) 0.5 H Baso # (Auto) 0.1 Abs Immat Gran (auto) 0.13 H Absolute Neuts (auto) 12.0 H Absolute Nucleated RBC 0.000 Nucleated RBC % (auto) 0.0 Sodium Potassium Chloride Carbon Dioxide Anion Gap BUN Creatinine Estim Creat Clear Calc Estimated GFR Fasting Glucose Estimat Average Glucose Hemoglobin A1c % Calcium Total Bilirubin 0.3 Direct Bilirubin 0.1 AST 26 ALT 55 H Alkaline Phosphatase 135 H Total Protein 8.1 H Albumin 4.4 Triglycerides Cholesterol LDL Cholesterol, Calc HDL Cholesterol Vitamin B12 Folate TSH Free T4 Imaging Radiology Impressions: ITS Impressions Chest X-Ray 03/01/23 08:00 IMPRESSION: Unremarkable examination. Medications Medications Current Medications Acetaminophen (Acetaminophen 325 Mg Tablet) 650 mg PO Q6H PRN PRN Reason: Headache/Pain Mild Scale (1-3) Al Hydroxide/Mg Hydroxide (Magnesium Hydrox/Alum Hydrox 30 Ml Oral.Susp) 30 ml PO Q6H PRN PRN Reason: Heartburn/Nausea Amlodipine Besylate (Amlodipine Besylate 10 Mg Tablet) 10 mg PO DAILY [facility]; Protocol Last Admin: 03/03/23 08:08 Dose: 10 mg Hydroxyzine HCl (Hydroxyzine Hcl 25 Mg Tablet) 25 mg PO Q6H PRN PRN Reason: Anxiety Quentin Carbonate (Quentin Carbonate Er 300 Mg Tablet.Er) 600 mg PO BID [facility] Last Admin: 03/03/23 08:07 Dose: 600 mg Magnesium Hydroxide (Milk Of Magnesia 30 Ml Oral.Susp) 30 ml PO DAILY PRN PRN Reason: Constipation Nicotine Polacrilex (Nicotine Polacrilex 2 Mg Gum) 4 mg BUCCAL Q2H PRN PRN Reason: Nicotine Cravings Quetiapine Fumarate (Quetiapine Fumarate 50 Mg Tablet) 150 mg PO BEDTIME [facility] Last Admin: 03/02/23 21:00 Dose: 150 mg Trazodone HCl (Trazodone Hcl 50 Mg Tablet) 50 mg PO BEDTIME MRX1 PRN PRN Reason: Insomnia Allergies Allergies Allergy/AdvReac Type Severity Reaction Status Date / Time No Known Allergies Allergy Verified 03/01/23 02:07 Assessment & Plan Assessment & Plan (1) Bipolar disorder: Status: Acute Code(s): F31.9 - Bipolar disorder, unspecified (2) Hypertension: Status: Acute Code(s): I10 - Essential (primary) hypertension Plan 03/02: restart home meds of lithium 600 BID and seroquel 150 QHS. arrange aftercare. already substantial improvement after only a couple doses of medication. 03/03: gains hold. continue current mgmt. lithium level/labs sunday. Reason for continued inpatient stay Substantial Risk for: inability to function and rapid decompensation Time Spent With Patient Time: Total time managing care of this patient today ____ minutes.
[2023-03-03 21:03] VITALS: BP 143/87; PULSE 103; RESP 19; TEMP 36.8; O2SAT 97
[2023-03-03 21:30] VITALS: BP 163/87; PULSE 103; RESP 19; TEMP 36.8; O2SAT 97
[2023-03-03] MEDS: QUEtiapine Fumarate 50 MG TABLET 150 MG PO (21:41)
[2023-03-04 06:00] VITALS: BP 134/77; PULSE 88; RESP 16; TEMP 36.9; O2SAT 99
[2023-03-04] MEDS: Lithium Carbonate ER 300 MG TABLET.ER 600 MG PO ×2 (08:31→21:42)
[2023-03-04] MEDS: amLODIPine Besylate 10 MG TABLET PO (08:31)
--- NOTE | 2023-03-04 14:57 | P.PNPSI_ITS ---
Subjective Subjective Date of Service: 03/04/23 Reason For Visit: SI Interim History: feeling very well, hopes he continues to feel like this moving forward. no questions or complaints. per staff, good sleep, good appetite. pleasant. slept from 21:45 on. Mental Status Exam Mental Status Exam Narrative: alert, oriented and pleasant. Speech is soft-spoken. good eye contact. Affect is flexible, normo-intense. No acute signs of psychosis. No delusions. thoughts linear and logical. No SI/SIBI/HI/AVH expressed. Judgment is intact Diagnostics Vital Signs (24Hr): Vital Signs - 24 hr 03/03/23 21:03 03/03/23 21:30 03/04/23 06:00 Temperature 98.3 F 98.3 F 98.4 F Pulse Rate 103 H 103 H 88 Respiratory Rate 19 19 16 Blood Pressure 143/87 H 163/87 H 134/77 Pulse Oximetry 97 97 99 Oxygen Delivery Method Room Air Room Air Room Air BMI result Body Mass Index 37.1 Labs 03/03/23 14:22 03/02/23 07:34 Labs: Laboratory Results - last 48 hr 03/03/23 03/03/23 14:22 14:22 WBC 16.7 H RBC 5.67 Hgb 15.4 Hct 47.6 MCV 84.0 MCH 27.2 MCHC 32.4 RDW 13.9 Plt Count 297 MPV 10.7 Immature Gran % (Auto) 0.8 H Neut % (Auto) 71.6 Lymph % (Auto) 18.1 L [place] % (Auto) 5.8 Eos % (Auto) 3.2 Baso % (Auto) 0.5 Lymph # (Auto) 3.0 [place] # (Auto) 1.0 Eos # (Auto) 0.5 H Baso # (Auto) 0.1 Abs Immat Gran (auto) 0.13 H Absolute Neuts (auto) 12.0 H Absolute Nucleated RBC 0.000 Nucleated RBC % (auto) 0.0 Total Bilirubin 0.3 Direct Bilirubin 0.1 AST 26 ALT 55 H Alkaline Phosphatase 135 H Total Protein 8.1 H Albumin 4.4 Imaging Radiology Impressions: ITS Impressions Chest X-Ray 03/01/23 08:00 IMPRESSION: Unremarkable examination. Medications Medications Current Medications Acetaminophen (Acetaminophen 325 Mg Tablet) 650 mg PO Q6H PRN PRN Reason: Headache/Pain Mild Scale (1-3) Al Hydroxide/Mg Hydroxide (Magnesium Hydrox/Alum Hydrox 30 Ml Oral.Susp) 30 ml PO Q6H PRN PRN Reason: Heartburn/Nausea Amlodipine Besylate (Amlodipine Besylate 10 Mg Tablet) 10 mg PO DAILY [facility]; Protocol Last Admin: 03/04/23 08:31 Dose: 10 mg Hydroxyzine HCl (Hydroxyzine Hcl 25 Mg Tablet) 25 mg PO Q6H PRN PRN Reason: Anxiety Quinter Carbonate (Quinter Carbonate Er 300 Mg Tablet.Er) 600 mg PO BID [facility] Last Admin: 03/04/23 08:31 Dose: 600 mg Magnesium Hydroxide (Milk Of Magnesia 30 Ml Oral.Susp) 30 ml PO DAILY PRN PRN Reason: Constipation Nicotine Polacrilex (Nicotine Polacrilex 2 Mg Gum) 4 mg [place]CC[place] Q2H PRN PRN Reason: Nicotine Cravings Quetiapine Fumarate (Quetiapine Fumarate 50 Mg Tablet) 150 mg PO BEDTIME [facility] Last Admin: 03/03/23 21:41 Dose: 150 mg Trazodone HCl (Trazodone Hcl 50 Mg Tablet) 50 mg PO BEDTIME MRX1 PRN PRN Reason: Insomnia Allergies Allergies Allergy/AdvReac Type Severity Reaction Status Date / Time No Known Allergies Allergy Verified 03/01/23 02:07 Assessment & Plan Assessment & Plan (1) Bipolar disorder: Status: Acute Code(s): F31.9 - Bipolar disorder, unspecified (2) Hypertension: Status: Acute Code(s): I10 - Essential (primary) hypertension Plan 03/02: restart home meds of lithium 600 BID and seroquel 150 QHS. arrange aftercare. already substantial improvement after only a couple doses of medication. 03/03: gains hold. continue current mgmt. lithium level/labs sunday. 03/04: stable, feeling well. continue current mgmt. Reason for continued inpatient stay Substantial Risk for: inability to function and rapid decompensation Time Spent With Patient Time: Total time managing care of this patient today ____ minutes.
[2023-03-04 18:00] VITALS: BP 168/93; PULSE 98; RESP 18; O2SAT 99
[2023-03-04] MEDS: cloNIDine HCL 0.1 MG TABLET PO (19:36)
[2023-03-04 20:26] VITALS: BP 142/91; PULSE 107; RESP 18; TEMP 36.9; O2SAT 97
[2023-03-04] MEDS: QUEtiapine Fumarate 50 MG TABLET 150 MG PO (21:42)
[2023-03-04 21:49] VITALS: BP 135/90; PULSE 100
[2023-03-05 08:00] VITALS: BP 111/60; PULSE 71; RESP 18; TEMP 36.6; O2SAT 98
[2023-03-05] MEDS: Lithium Carbonate ER 300 MG TABLET.ER 600 MG PO (09:09)
[2023-03-05] MEDS: amLODIPine Besylate 10 MG TABLET PO (09:09)
--- NOTE | 2023-03-05 10:57 | PM.PSYDC ---
DS: Providers Provider Date of Service: 03/05/23 Date of admission: 03/01/23 16:08 Primary care physician: Unknown Physician DS: Diagnosis Discharge Diagnosis (1) Bipolar disorder: Status: Acute (2) Hypertension: Status: Acute DS: Medications Discharge Medications Home Medications: Home Medications Medication Instructions Recorded Confirmed amlodipine 10 mg tablet 10 mg PO DAILY 03/01/23 03/01/23 quetiapine 50 mg tablet 150 mg PO BEDTIME 03/01/23 03/01/23 Previous Rx's Medication Instructions Recorded clonidine HCl 0.1 mg tablet 0.1 mg PO DAILY PRN SBP > 140 30 03/05/23 days #30 tabs lithium carbonate 300 mg 600 mg PO BID 30 days #120 tabs 03/05/23 tablet,extended release Mental Status Exam Mental Status Exam Narrative: alert, oriented and pleasant. Speech is soft-spoken. good eye contact. Affect is flexible, normo-intense. No acute signs of psychosis. No delusions. thoughts linear and logical. No SI/SIBI/HI/AVH. Judgment is intact Data Data Completed and Pending Completed studies during hospitalization [Text1]: 03/01/23 03/01/23 03/01/23 02:38 02:39 02:39 WBC 18.3 H RBC 5.08 Hgb 13.9 L Hct 42.1 MCV 82.9 MCH 27.4 MCHC 33.0 RDW 13.6 Plt Count 278 MPV 10.6 Immature Gran % (Auto) Neut % (Auto) Lymph % (Auto) [place] % (Auto) Eos % (Auto) Baso % (Auto) Lymph # (Auto) [place] # (Auto) Eos # (Auto) Baso # (Auto) Abs Immat Gran (auto) Absolute Neuts (auto) Absolute Nucleated RBC 0.000 Nucleated RBC % (auto) 0.0 Sodium 140 Potassium 3.5 D Chloride 102 Carbon Dioxide 25 Anion Gap 17 BUN 15 Creatinine 0.77 Estim Creat Clear Calc 155.8 Estimated GFR > 60 Random Glucose 93 Fasting Glucose Estimat Average Glucose Hemoglobin A1c % Calcium 9.4 Total Bilirubin 0.4 Direct Bilirubin AST 23 ALT 55 H Alkaline Phosphatase 136 H Total Protein 7.4 Albumin 4.0 Triglycerides Cholesterol LDL Cholesterol, Calc HDL Cholesterol Vitamin B12 Folate TSH Free T4 Urine Color Urine Appearance Urine pH Ur Specific [place] Urine Protein Urine Glucose (UA) Urine Ketones Urine Blood Urine Nitrite Ur Leukocyte Esterase Urine Opiates Screen Urine Fentanyl Screen Ur Barbiturates Screen Ur Phencyclidine Scrn Ur Amphetamines Screen U Benzodiazepines Scrn [place] Urine Cocaine Screen U Marijuana (THC) Screen Ethyl Alcohol COVID-19 ([facility]) Negative COVID-19 Clin Com See Note 03/01/23 03/01/23 03/01/23 02:39 02:39 09:05 WBC RBC Hgb Hct MCV MCH MCHC RDW Plt Count MPV Immature Gran % (Auto) Neut % (Auto) Lymph % (Auto) [place] % (Auto) Eos % (Auto) Baso % (Auto) Lymph # (Auto) [place] # (Auto) Eos # (Auto) Baso # (Auto) Abs Immat Gran (auto) Absolute Neuts (auto) Absolute Nucleated RBC Nucleated RBC % (auto) Sodium Potassium Chloride Carbon Dioxide Anion Gap BUN Creatinine Estim Creat Clear Calc Estimated GFR Random Glucose Fasting Glucose Estimat Average Glucose Hemoglobin A1c % Calcium Total Bilirubin Direct Bilirubin AST ALT Alkaline Phosphatase Total Protein Albumin Triglycerides Cholesterol LDL Cholesterol, Calc HDL Cholesterol Vitamin B12 Folate TSH Free T4 Urine Color Urine Appearance Urine pH Ur Specific [place] Urine Protein Urine Glucose (UA) Urine Ketones Urine Blood Urine Nitrite Ur Leukocyte Esterase Urine Opiates Screen Not Detected Urine Fentanyl Screen Not Detected Ur Barbiturates Screen Not Detected Ur Phencyclidine Scrn Not Detected Ur Amphetamines Screen Not Detected U Benzodiazepines Scrn Not Detected [place] < 0.10 L Urine Cocaine Screen Not Detected U Marijuana (THC) Screen POSITIVE H Ethyl Alcohol < 10 COVID-19 ([facility]) COVID-19 Clin Com 03/01/23 03/02/23 03/02/23 09:05 07:34 07:34 WBC RBC Hgb Hct MCV MCH MCHC RDW Plt Count MPV Immature Gran % (Auto) Neut % (Auto) Lymph % (Auto) [place] % (Auto) Eos % (Auto) Baso % (Auto) Lymph # (Auto) [place] # (Auto) Eos # (Auto) Baso # (Auto) Abs Immat Gran (auto) Absolute Neuts (auto) Absolute Nucleated RBC Nucleated RBC % (auto) Sodium 138 Potassium 4.0 Chloride 102 Carbon Dioxide 26 Anion Gap 14 BUN 13 Creatinine 0.74 Estim Creat Clear Calc 162.1 Estimated GFR > 60 Random Glucose Fasting Glucose 105 H Estimat Average Glucose 108 Hemoglobin A1c % 5.4 Calcium 9.6 Total Bilirubin 0.6 Direct Bilirubin AST 23 ALT 50 H Alkaline Phosphatase 130 H Total Protein 7.7 Albumin 4.2 Triglycerides 96 Cholesterol 229 LDL Cholesterol, Calc 167 HDL Cholesterol 43 Vitamin B12 Folate TSH 2.78 Free T4 1.04 Urine Color Yellow Urine Appearance Clear Urine pH 5.5 Ur Specific [place] 1.020 Urine Protein Negative Urine Glucose (UA) Negative Urine Ketones 15 Urine Blood Negative Urine Nitrite Negative Ur Leukocyte Esterase Negative Urine Opiates Screen Urine Fentanyl Screen Ur Barbiturates Screen Ur Phencyclidine Scrn Ur Amphetamines Screen U Benzodiazepines Scrn [place] Urine Cocaine Screen U Marijuana (THC) Screen Ethyl Alcohol COVID-19 ([facility]) COVID-[place] 03/02/23 03/03/23 03/03/23 07:34 14:22 14:22 WBC 16.7 H RBC 5.67 Hgb 15.4 Hct 47.6 MCV 84.0 MCH 27.2 MCHC 32.4 RDW 13.9 Plt Count 297 MPV 10.7 Immature Gran % (Auto) 0.8 H Neut % (Auto) 71.6 Lymph % (Auto) 18.1 L [place] % (Auto) 5.8 Eos % (Auto) 3.2 Baso % (Auto) 0.5 Lymph # (Auto) 3.0 [place] # (Auto) 1.0 Eos # (Auto) 0.5 H Baso # (Auto) 0.1 Abs Immat Gran (auto) 0.13 H Absolute Neuts (auto) 12.0 H Absolute Nucleated RBC 0.000 Nucleated RBC % (auto) 0.0 Sodium Potassium Chloride Carbon Dioxide Anion Gap BUN Creatinine Estim Creat Clear Calc Estimated GFR Random Glucose Fasting Glucose Estimat Average Glucose Hemoglobin A1c % Calcium Total Bilirubin 0.3 Direct Bilirubin 0.1 AST 26 ALT 55 H Alkaline Phosphatase 135 H Total Protein 8.1 H Albumin 4.4 Triglycerides Cholesterol LDL Cholesterol, Calc HDL Cholesterol Vitamin B12 385 Folate 8.2 TSH Free T4 Urine Color Urine Appearance Urine pH Ur Specific [place] Urine Protein Urine Glucose (UA) Urine Ketones Urine Blood Urine Nitrite Ur Leukocyte Esterase Urine Opiates Screen Urine Fentanyl Screen Ur Barbiturates Screen Ur Phencyclidine Scrn Ur Amphetamines Screen U Benzodiazepines Scrn [place] Urine Cocaine Screen U Marijuana (THC) Screen Ethyl Alcohol COVID-19 ([facility]) COVID-19 House Party Com 03/05/23 10:06 WBC RBC Hgb Hct MCV MCH MCHC RDW Plt Count MPV Immature Gran % (Auto) Neut % (Auto) Lymph % (Auto) [place] % (Auto) Eos % (Auto) Baso % (Auto) Lymph # (Auto) [place] # (Auto) Eos # (Auto) Baso # (Auto) Abs Immat Gran (auto) Absolute Neuts (auto) Absolute Nucleated RBC Nucleated RBC % (auto) Sodium Potassium Chloride Carbon Dioxide Anion Gap BUN Creatinine Estim Creat Clear Calc Estimated GFR Random Glucose Fasting Glucose Estimat Average Glucose Hemoglobin A1c % Calcium Total Bilirubin Direct Bilirubin AST ALT Alkaline Phosphatase Total Protein Albumin Triglycerides Cholesterol LDL Cholesterol, Calc HDL Cholesterol Vitamin B12 Folate TSH Free T4 Urine Color Urine Appearance Urine pH Ur Specific [place] Urine Protein Urine Glucose (UA) Urine Ketones Urine Blood Urine Nitrite Ur Leukocyte Esterase Urine Opiates Screen Urine Fentanyl Screen Ur Barbiturates Screen Ur Phencyclidine Scrn Ur Amphetamines Screen U Benzodiazepines Scrn [place] Pending Urine Cocaine Screen U Marijuana (THC) Screen Ethyl Alcohol COVID-19 ([facility]) COVID-19 Clin Com Imaging Diagnostic Imaging Impressions Chest X-Ray 03/01/23 08:00 IMPRESSION: Unremarkable examination. DS: Summary Time Spent with Patient Time attestation: Total time managing care of this patient today ____ minutes. Discharge Plan Discharge Anticipated Discharge Date/Time: 03/06/23 13:30 Patient Disposition: Home, Self-Care Discharge Diagnosis: Bipolar I Disorder, MRE Chantel Hypertension Referrals: Physician,Unknown J [Primary Care Provider] - 1 Week Discharge Medications: New clonidine HCl 0.1 mg Tablet 0.1 mg PO DAILY PRN (Reason: SBP > 140) 30 Days Qty: 30 0RF Protocol: Hold for SBP< HOLD for SBP < : 90 Continued amlodipine 10 mg tablet 10 mg PO DAILY quetiapine 50 mg tablet 150 mg PO BEDTIME lithium carbonate 300 mg tablet extended release 600 mg PO BID 30 Days Qty: 120 0RF Discharge Orders: Discharge Order (Routine); Ordered 03/06/23 Ordered By: Garry Benjamin Diet: Advance to usual diet Activity on Discharge: As tolerated Stand Alone Forms: Patient Portal Discharge page Care Plan Goals: remain sadfe and stable in the outpatient treatment setting Health Concerns: Hypertension Plan of Treatment: take medications as prescribed, attend appointments as scheduled Assessment: not at imminent risk of harm to self or others
[2023-03-05 11:18] LABS: Lithium 0.55 mmol/L (0.60-1.20)
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
[2023-03-05 21:24] VITALS: BP 137/86; PULSE 109; RESP 16; TEMP 37.1; O2SAT 97
[2023-03-05] MEDS: QUEtiapine Fumarate 50 MG TABLET 150 MG PO (21:26)
[2023-03-05] MEDS: Lithium Carbonate ER 450 MG TABLET.ER 900 MG PO (21:26)
[2023-03-06] MEDS: Lithium Carbonate ER 300 MG TABLET.ER 600 MG PO (08:19)
[2023-03-06] MEDS: amLODIPine Besylate 10 MG TABLET PO (08:19)
[2023-03-06 09:07] VITALS: BP 127/81; PULSE 76; RESP 20; TEMP 36.6; O2SAT 100
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
== END 2023-03-06 13:05 | disposition home or self-care (01) | DRG 753 ==
LOC: HO.ED 15:49 → HO.PADLT16 16:23
PROVIDERS: Physician Assistant; Admitting Provider Psychiatry & Neurology Psychiatry; Emergency Provider Student in an Organized Health Care Education/Training Program; Visit Provider Psychiatry & Neurology Psychiatry
DX: F31.9 Bipolar disorder, unspecified (principal); R45.851 Suicidal ideations; Z91.148 Patient's other noncompliance with medication regimen for other reason; I10 Essential (primary) hypertension; Z20.822 Contact with and (suspected) exposure to COVID-19; Z87.891 Personal history of nicotine dependence; Z79.899 Other long term (current) drug therapy
CPT/HCPCS: 36415; 71045; 80053; 80061; 80076; 80178; 80307; 81003; 82607; 82746; 83036; 84439; 84443; 85025; 85027; 87635; 93005; 99285; S9485

== ENCOUNTER 2023-03-30 21:42 | Inpatient (IN) | payer OTHER, SELFPAY ==
[2023-03-30 21:47] VITALS: BP 154/97; PULSE 101; RESP 16; TEMP 36.7; O2SAT 98; BMI 37.1
[2023-03-30 22:24] LABS: MANUAL DIFF FLAG NO
[2023-03-30 22:26] LABS: Basophils Absolute Auto 0.1 X10*3/uL (0.0-0.2); Basophils Percent Auto 0.4 % (0-2); Eosinophils Absolute Auto 0.5 X10*3/uL (0.0-0.4); Eosinophils Percent Auto 3.1 % (0-4); Hematocrit 43.3 % (42.0-52.0); Hemoglobin 14.2 g/dl (14.0-18.0); Imm Gran Abs Auto 0.11 X10*3/uL (0.00-0.03); Imm Gran Pct Auto 0.7 % (0.0-0.4); Lymphocytes Absolute Auto 2.5 X10*3/uL (1.2-4.9); Lymphocytes Percent Auto 16.1 % (20-40); Mean Corpuscular HGB Conc 32.8 g/dl (31.0-36.0); Mean Corpuscular Hemoglobin 27.5 pg (27.0-33.0); Mean Corpuscular Volume 83.9 fL (80.0-98.0); Mean Platelet Volume 10.4 fL (9.4-12.4); Monocytes Absolute Auto 0.8 X10*3/uL (0.1-1.2); Monocytes Percent Auto 4.9 % (2-11); Neutrophils Absolute Auto 11.5 x10*3/uL (2.0-8.3); Neutrophils Percent Auto 74.8 % (45-73); Platelet Count 303 X10*3/uL (160-400); Red Blood Count 5.16 X10*6/uL (4.60-5.80); Red Cell Distribution Width 14.1 % (11.0-16.0); White Blood Count 15.3 X10*3/uL (4.8-10.8)
[2023-03-30 22:34] LABS: Lithium 0.36 mmol/L (0.60-1.20)
[2023-03-30 22:41] LABS: Alanine Aminotransferase 50 U/L (0-40); Albumin Level 4.2 g/dL (3.5-5.0); Alkaline Phosphatase 140 U/L (39-117); Anion Gap 14 (12-20); Aspartate Amino Transferase 20 U/L (5-37); Bilirubin Total 0.3 mg/dL (0.0-1.0); Blood Urea Nitrogen 11 mg/dL (9-16); Calcium 9.6 mg/dL (8.4-10.2); Carbon Dioxide 27 mmol/L (22-29); Chloride 101 mmol/L (96-108); Creatinine Clr Calc Pharmacy 121.2; Estimated Glomerular Filt Rate > 60; Ethanol < 10 mg/dL; Glucose Random 118 mg/dL (60-115); Potassium 3.5 mmol/L (3.3-5.1); Sodium 138 mmol/L (135-145); Total Protein 7.5 g/dL (6.5-8.0)
[2023-03-30 22:45] LABS: COVID-19 Test Negative (Negative); IDNOW Serial# 08D9AD1C
[2023-03-30 23:26] LABS: Appearance Urine Clear; Color Urine Yellow; Glucose Urine UA Negative (Negative); Leukocyte Esterase Urine Negative (Negative); Nitrite Urine Negative (Negative); PH 6.5 (5.0-9.0); Urine Blood Negative (Negative); Urine Ketones Negative (Negative); Urine Protein Negative (Neg-Trace)
[2023-03-30 23:43] LABS: Amphetamine Screen Urine Not Detected (Not Detect); Barbiturates, Urine Not Detected (Not Detect); Benzodiazepines Screen Urine Not Detected (Not Detect); Cannabinoid Screen Urine Not Detected (Not Detect); Cocaine Screen Urine Not Detected (Not Detect); Fentanyl, urine Not Detected (Not Detect); Opiate Screen Urine Not Detected (Not Detect); Phencyclidine Screen Urine Not Detected (Not Detect)
--- NOTE | 2023-03-31 00:36 | ED_ITS ---
HPI - Psych General Chief Complaint: Psychiatric Symptoms Stated Complaint: CRISIS Time Seen by Provider: 03/30/23 22:36 Source: patient Mode of arrival: EMS Limitations: no limitations History of Present Illness HPI Narrative: Patient comes emergency room complaining of feeling sad states that his depression has gotten much worse due to his living situation and interactions with his family member. Patient denies suicidal homicidal ideation. Related Data Home Medications Medication Instructions Recorded Confirmed amlodipine 10 mg tablet 10 mg PO DAILY 03/30/23 03/30/23 lithium carbonate 300 mg 600 mg PO BID 03/30/23 03/30/23 tablet,extended release quetiapine 50 mg tablet 150 mg PO BEDTIME 03/30/23 03/30/23 Allergies Allergy/AdvReac Type Severity Reaction Status Date / Time No Known Allergies Allergy Verified 03/01/23 02:07 Review of Systems Review of Systems: Constitutional : No Weight loss, No Fever, No Chills, No Night Sweats, No Fatigue, No Malaise ENT/Mouth : No Hearing loss, No Ear Pain, No Nasal Congestion, No Sinus Pain, No Hoarseness, No sore throat, No Rhinorrhea, No Swallowing Difficulty Eyes: No Eye Pain, No Swelling, No Redness, No Foreign Body, No Discharge, No Vision Changes Cardiovascular : No Chest Pain, No SOB, No Dyspnea on Exertion, No Orthopnea, No Edema, No Palpitations Respiratory : No Cough, No Sputum, No Wheezing, No Smoke Exposure, No Dyspnea Gastrointestinal : No Nausea, No Vomiting, No Diarrhea, No Constipation, No abdominal Pain, No Hematochezia, No Melena Genitourinary : no irregular bleeding, No Dysuria, No Urinary Frequency, No Hematuria, No Urinary Incontinence, No Urgency, No Flank Pain, No Urinary Flow Changes, No Hesitancy Musculoskeletal : No joint pain, No Myalgias, No Joint Swelling Skin : No Skin Lesions, No rash Neuro : No Weakness, No Numbness, No Paresthesias, No Loss of Consciousness, No Dizziness, No Headache Psych : No Anxiety/Panic, complaining of depression, no SI or HI Heme/Lymph: No Bruising, No Bleeding,No Lymphadenopathy Endocrine : No Polyuria, No Polydipsia, No Temperature Intolerance PMF Past Medical History Medical History (Updated 03/31/23 @ 00:41 by Francoise Palacios MD) Bipolar disorder Hypertension Social History Social History Household Members: Family Household Members Other:: mom, niece, step father and sister Housing: Apartment Do you presently have visiting nurse or other home services: No Alcohol intake: never Patient Tobacco Use Status: Former Tobacco user Quit Date: 02/26/23 Tobacco use type: Cigarette Cigarettes Per Day: 2 Years Smoked: 15 e-Cigarette/Vaping Use: Never Used Second Hand Smoke Exposure: No Substance Use Type: Marijuana and Caffiene Advance Directives: No Advance Directives Information Provided: Yes service: No Sexual orientation: Don't Know Physical Exam Vital Signs: Vital Signs: Last Vital Signs Temp 98.1 F 03/30/23 21:47 Pulse 101 H 03/30/23 21:47 Resp 16 03/30/23 21:47 BP 154/97 H 03/30/23 21:47 Pulse Ox 98 03/30/23 21:47 O2 Del Method Room Air 03/30/23 21:47 BMI result Body Mass Index 37.1 Const: Other: Appearance: Alert. Oriented X3. No acute distress. Eyes: Pupils equal, round and reactive to light. ENT: Pharynx normal. Neck: Normal inspection. Neck supple. No lymph nodes noted. No crepitus CVS: Normal heart rate and rhythm. Pulses normal. Normal S1 and S2 Respiratory: No respiratory distress. Breath sounds normal. No Wheezing. No rales Abdomen: Soft and nontender. No rigidity. No distention. Skin: Skin warm and dry. Normal skin color. Normal skin turgor. Extremities: No lower extremity edema. No Lacerations. No Rash Neuro: Oriented X 3. No motor deficit. No sensory deficit. Moving all extremities. No slurred speech. CN 2 through 12 grossly intact Psych: calm, cooperative, normal affect Course Course Course Narrative: -my interpretation of labs: White blood cell count 15.3, patient has chronic leukocytosis, chemistry within normal limits, urine negative for UTI or drug use, negative for COVID-19. -care team consult pending -physician observation started at 00:40 Medical Decision Making Lab Data 03/30/23 22:19 03/30/23 22:19 Labs: Lab Results 03/30/23 03/30/23 03/30/23 Range/Units 22:19 22:19 22:19 WBC 15.3 H (4.8-10.8) X10*3/uL RBC 5.16 (4.60-5.80) X10*6/uL Hgb 14.2 (14.0-18.0) g/dl Hct 43.3 (42.0-52.0) % MCV 83.9 (80.0-98.0) fL MCH 27.5 (27.0-33.0) pg MCHC 32.8 (31.0-36.0) g/dl RDW 14.1 (11.0-16.0) % Plt Count 303 (160-400) X10*3/uL MPV 10.4 (9.4-12.4) fL Immature Gran % (Auto) 0.7 H (0.0-0.4) % Neut % (Auto) 74.8 H (45-73) % Lymph % (Auto) 16.1 L (20-40) % [place] % (Auto) 4.9 (2-11) % Eos % (Auto) 3.1 (0-4) % Baso % (Auto) 0.4 (0-2) % Lymph # (Auto) 2.5 (1.2-4.9) X10*3/uL [place] # (Auto) 0.8 (0.1-1.2) X10*3/uL Eos # (Auto) 0.5 H (0.0-0.4) X10*3/uL Baso # (Auto) 0.1 (0.0-0.2) X10*3/uL Abs Immat Gran (auto) 0.11 H (0.00-0.03) X10*3/uL Absolute Neuts (auto) 11.5 H (2.0-8.3) x10*3/uL Absolute Nucleated RBC 0.000 (0.0-0.012) X10*3/uL Nucleated RBC % (auto) 0.0 (0.0-0.2) /100WBC Sodium 138 (135-145) mmol/L Potassium 3.5 (3.3-5.1) mmol/L Chloride 101 (96-108) mmol/L Carbon Dioxide 27 (22-29) mmol/L Anion Gap 14 (12-20) BUN 11 (9-16) mg/dL Creatinine 0.99 (0.5-1.4) mg/dL Estim Creat Clear Calc 121.2 Estimated GFR > 60 Random Glucose 118 H (60-115) mg/dL Calcium 9.6 (8.4-10.2) mg/dL Total Bilirubin 0.3 (0.0-1.0) mg/dL AST 20 (5-37) U/L ALT 50 H (0-40) U/L Alkaline Phosphatase 140 H (39-117) U/L Total Protein 7.5 (6.5-8.0) g/dL Albumin 4.2 (3.5-5.0) g/dL Urine Color Urine Appearance Urine pH (5.0-9.0) Ur Specific Chloe (1.005-1.025) Urine Protein (Neg-Trace) mg/dL Urine Glucose (UA) (Negative) mg/dL Urine Ketones (Negative) mg/dL Urine Blood (Negative) Urine Nitrite (Negative) Ur Leukocyte Esterase (Negative) Urine Opiates Screen (Not Detect) Urine Fentanyl Screen (Not Detect) Ur Barbiturates Screen (Not Detect) Ur Phencyclidine Scrn (Not Detect) Ur Amphetamines Screen (Not Detect) U Benzodiazepines Scrn (Not Detect) [place] 0.36 L (0.60-1.20) mmol/L Urine Cocaine Screen (Not Detect) U Marijuana (THC) Screen (Not Detect) Ethyl Alcohol < 10 mg/dL COVID-19 ([facility]) (Negative) COVID-19 Clin Com 03/30/23 03/30/23 03/30/23 Range/Units 22:19 23:04 23:04 WBC (4.8-10.8) X10*3/uL RBC (4.60-5.80) X10*6/uL Hgb (14.0-18.0) g/dl Hct (42.0-52.0) % MCV (80.0-98.0) fL MCH (27.0-33.0) pg MCHC (31.0-36.0) g/dl RDW (11.0-16.0) % Plt Count (160-400) X10*3/uL MPV (9.4-12.4) fL Immature Gran % (Auto) (0.0-0.4) % Neut % (Auto) (45-73) % Lymph % (Auto) (20-40) % [place] % (Auto) (2-11) % Eos % (Auto) (0-4) % Baso % (Auto) (0-2) % Lymph # (Auto) (1.2-4.9) X10*3/uL [place] # (Auto) (0.1-1.2) X10*3/uL Eos # (Auto) (0.0-0.4) X10*3/uL Baso # (Auto) (0.0-0.2) X10*3/uL Abs Immat Gran (auto) (0.00-0.03) X10*3/uL Absolute Neuts (auto) (2.0-8.3) x10*3/uL Absolute Nucleated RBC (0.0-0.012) X10*3/uL Nucleated RBC % (auto) (0.0-0.2) /100WBC Sodium (135-145) mmol/L Potassium (3.3-5.1) mmol/L Chloride (96-108) mmol/L Carbon Dioxide (22-29) mmol/L Anion Gap (12-20) BUN (9-16) mg/dL Creatinine (0.5-1.4) mg/dL Estim Creat Clear Calc Estimated GFR Random Glucose (60-115) mg/dL Calcium (8.4-10.2) mg/dL Total Bilirubin (0.0-1.0) mg/dL AST (5-37) U/L ALT (0-40) U/L Alkaline Phosphatase (39-117) U/L Total Protein (6.5-8.0) g/dL Albumin (3.5-5.0) g/dL Urine Color Yellow Urine Appearance Clear Urine pH 6.5 (5.0-9.0) Ur Specific [place] 1.010 (1.005-1.025) Urine Protein Negative (Neg-Trace) mg/dL Urine Glucose (UA) Negative (Negative) mg/dL Urine Ketones Negative (Negative) mg/dL Urine Blood Negative (Negative) Urine Nitrite Negative (Negative) Ur Leukocyte Esterase Negative (Negative) Urine Opiates Screen Not Detected (Not Detect) Urine Fentanyl Screen Not Detected (Not Detect) Ur Barbiturates Screen Not Detected (Not Detect) Ur Phencyclidine Scrn Not Detected (Not Detect) Ur Amphetamines Screen Not Detected (Not Detect) U Benzodiazepines Scrn Not Detected (Not Detect) [place] (0.60-1.20) mmol/L Urine Cocaine Screen Not Detected (Not Detect) U Marijuana (THC) Screen Not Detected (Not Detect) Ethyl Alcohol mg/dL COVID-19 ([facility]) Negative (Negative) COVID-19 Clin Com See Note Discharge Plan Discharge Clinical Impression: Depression Patient Disposition: Admitted As Inpatient Prescriptions: No Action lithium carbonate 300 mg tablet extended release 600 mg PO BID amlodipine 10 mg tablet 10 mg PO DAILY quetiapine 50 mg tablet 150 mg PO BEDTIME
[2023-03-31] MEDS: QUEtiapine Fumarate 50 MG TABLET 150 MG PO ×2 (02:14→21:21)
[2023-03-31] MEDS: Lithium Carbonate ER 300 MG TABLET.ER 600 MG PO ×3 (02:15→21:21)
[2023-03-31 05:49] VITALS: RESP 16
--- NOTE | 2023-03-31 07:08 | PC.NURSE ---
patient appears to remain asleep at present respirations are even and unlabored patient appears in no distress
[2023-03-31 09:38] VITALS: BP 146/87; PULSE 76; RESP 15; TEMP 36.8; O2SAT 99
[2023-03-31] MEDS: amLODIPine Besylate 10 MG TABLET PO (09:47)
[2023-03-31 17:10] VITALS: BP 153/96; PULSE 77; RESP 20; TEMP 36.4; O2SAT 99
[2023-03-31 17:15] VITALS: BP 153/91; PULSE 77; RESP 18; TEMP 36.4; O2SAT 99
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
[2023-04-01 08:20] VITALS: BP 148/82; PULSE 88; RESP 18; TEMP 36.6; O2SAT 97
[2023-04-01] MEDS: amLODIPine Besylate 10 MG TABLET PO (08:28)
[2023-04-01] MEDS: Lithium Carbonate ER 300 MG TABLET.ER 600 MG PO ×2 (08:28→21:25)
[2023-04-01 08:31] LABS: Alanine Aminotransferase 47 U/L (0-40); Albumin Level 3.7 g/dL (3.5-5.0); Alkaline Phosphatase 119 U/L (39-117); Anion Gap 10 (12-20); Aspartate Amino Transferase 21 U/L (5-37); Bilirubin Total 0.4 mg/dL (0.0-1.0); Blood Urea Nitrogen 10 mg/dL (9-16); Calcium 9.3 mg/dL (8.4-10.2); Carbon Dioxide 28 mmol/L (22-29); Chloride 104 mmol/L (96-108); Cholesterol 215 mg/dL; Creatinine Clr Calc Pharmacy 151.9; Estimated Glomerular Filt Rate > 60; Glucose Fasting 91 mg/dL (60-99); HDL Cholesterol 40 mg/dL; LDL Cholesterol Calculated 155 mg/dl; Sodium 138 mmol/L (135-145); Total Protein 6.7 g/dL (6.5-8.0); Triglycerides 103 mg/dL
[2023-04-01 08:46] LABS: Free T4 (Free Thyroxine) 0.93 ng/dL (0.71-1.85); Thyroid Stimulating Hormone 2.83 uIU/mL (0.32-4.0)
[2023-04-01 09:00] LABS: Folate 6.3 ng/mL (> or = 4.0); Vitamin B12 382 pg/mL (200-900)
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
[2023-04-01 16:00] VITALS: BP 139/80; PULSE 90; TEMP 35.9
[2023-04-01] MEDS: QUEtiapine Fumarate 50 MG TABLET 150 MG PO (21:25)
[2023-04-02 09:20] VITALS: BP 143/86; PULSE 96; RESP 18; TEMP 36.2; O2SAT 98
[2023-04-02] MEDS: amLODIPine Besylate 10 MG TABLET PO (09:30)
[2023-04-02] MEDS: buPROPion HCl XL 150 MG TAB.ER.24H PO (09:31)
[2023-04-02] MEDS: Lithium Carbonate ER 300 MG TABLET.ER 600 MG PO (09:31)
--- NOTE | 2023-04-02 10:09 | P.PNPSI_ITS ---
Subjective Subjective Date of Service: 04/02/23 Reason For Visit: depression Interim History: Met with patient; discussed with team; reviewed progress notes and past discharge notes Patient reports that overall, from before he started on these medications he is doing much better; however he remains very sad despite the medications and the sadness has resulted him crying all the time and getting angry and and sometimes breaking furniture. Patient took his medications regularly except for a couple days before this admission, seeing how he would do without it but finding he could not sleep so he restarted. Patient vaguely referenced history of trauma saying he has been through a lot of bad things and has a lot of bad memories; however he did not elaborate Controlled Atmospheric Furnace Brazer discussed medication management at length. He he agrees to continue lithium at 600 mg in the morning and 900 mg q.h.s.; he has worries on his mind at nighttime and so finds it hard to sleep; agrees to try clonidine to see if that will make a difference in hopes that it can replace Seroquel given side effect profile. Patient was started on Wellbutrin for depression. Also discussed Lamictal. Discussed risks/side effects of both, including risk of Iftikhar Jigar's, and patient agrees to get on Lamictal given that it has mood stabilizing properties and help w/ PtSD and that Wellbutrin, while can help with depression can also irritate insomnia. He will continue with Wellbutrin for now however to see if it does help with mood and since Lamictal takes a long time to become therapeutic. Patient vaguely referenced history of trauma saying he has been through a lot of bad things and has a lot of bad memories; however he did not elaborate Mental Status Exam Mental Status Exam Narrative: Pt is alert and oriented; behavior is cooperative, friendly and calm; patient is not in distress; dressed in hospital attire with adequate hygiene; mood is described as sad and affect congruent, downcast; eye contact appropriate; Speech is a little soft but normal rate and prosody and not pressured; some psychomotor agitation/retardation present; thought process is organized and goal directed; Thought content is on depression, sadness, trying to be hopeful for treatment; otherwise pertinent to relevant topics and without any delusional content, paranoid ideations or grandiosity; denies any SI/HI. There is no evidence of perceptual disturbance. Patients insight and judgment impaired but adequate.. Diagnostics Vital Signs (24Hr): Vital Signs - 24 hr 04/01/23 16:00 Temperature 96.6 F L Pulse Rate 90 Blood Pressure 139/80 BMI result Body Mass Index 37.1 Labs 03/30/23 22:19 04/01/23 07:12 Labs: Laboratory Results - last 48 hr 04/01/23 04/01/23 07:12 07:12 Sodium 138 Potassium 4.0 Chloride 104 Carbon Dioxide 28 Anion Gap 10 L BUN 10 Creatinine 0.79 Estim Creat Clear Calc 151.9 Estimated GFR > 60 Fasting Glucose 91 Calcium 9.3 Total Bilirubin 0.4 AST 21 ALT 47 H Alkaline Phosphatase 119 H Total Protein 6.7 Albumin 3.7 Triglycerides 103 Cholesterol 215 LDL Cholesterol, Calc 155 HDL Cholesterol 40 Vitamin B12 382 Folate 6.3 TSH 2.83 Free T4 0.93 Medications Medications Current Medications Acetaminophen (Acetaminophen 325 Mg Tablet) 650 mg PO Q6H PRN PRN Reason: Headache/Pain Mild Scale (1-3) Al Hydroxide/Mg Hydroxide (Magnesium Hydrox/Alum Hydrox 30 Ml Oral.Susp) 30 ml PO Q6H PRN PRN Reason: Heartburn/Nausea Amlodipine Besylate (Amlodipine Besylate 10 Mg Tablet) 10 mg PO DAILY [facility]; Protocol Last Admin: 04/02/23 09:30 Dose: 10 mg Bupropion HCl (Bupropion Hcl Xl 150 Mg Tab.Er.24h) 150 mg PO DAILY [facility] Last Admin: 04/02/23 09:31 Dose: 150 mg Hydroxyzine HCl (Hydroxyzine Hcl 25 Mg Tablet) 25 mg PO Q6H PRN PRN Reason: Anxiety [place] Carbonate ([place] Carbonate Er 300 Mg Tablet.Er) 600 mg PO BID [facility] Last Admin: 04/02/23 09:31 Dose: 600 mg Magnesium Hydroxide (Milk Of Magnesia 30 Ml Oral.Susp) 30 ml PO DAILY PRN PRN Reason: Constipation Quetiapine Fumarate (Quetiapine Fumarate 50 Mg Tablet) 150 mg PO BEDTIME [facility] Last Admin: 04/01/23 21:25 Dose: 150 mg Trazodone HCl (Trazodone Hcl 50 Mg Tablet) 50 mg PO BEDTIME MRX1 PRN PRN Reason: Insomnia Allergies Allergies Allergy/AdvReac Type Severity Reaction Status Date / Time No Known Allergies Allergy Verified 03/01/23 02:07 Assessment & Plan Assessment & Plan (1) Bipolar 1 disorder, depressed, severe: Status: Acute Code(s): F31.4 - Bipolar disorder, current episode depressed, severe, without psychotic features (2) PTSD (post-traumatic stress disorder): Status: Acute Code(s): F43.10 - Post-traumatic stress disorder, unspecified (3) Hypertension: Status: Acute Code(s): I10 - Essential (primary) hypertension Plan 33 yo male that was [place] [facility] [place] with a diagnosis of bipolar disorder. He presented with increased depression with vague SI after an episode of agitation at home where he threw the phone on the round and walked out towards [facility] [place] Hospital course: 04/02 on admission lithium was continued; today increased back to home dose; covering provider started on Wellbutrin for depression which will be continued; also started on Lamictal since Wellbutrin can irritate insomnia and Lamictal as a mood stabilizer, generally indicated for continued bipolar depression but also because it has help with PTSD and less undesirable side effect profile than Seroquel Plan: CV Q 15 minute checks lithium ER 600 mg daily [place] ER 900 mg q.h.s. (increased back to home dose) Wellbutrin XL 150 mg daily, started this weekend for depression Started Lamictal 25 mg daily; discussed risks/side effects of this medication in cluding Iftikhar Kimball Clonidine 0.1 mg q.h.s. as well as p.r.n for insomnia. Also p.r.n. for anxiety for insomnia Switching Seroquel 150 q.h.s. to a p.r.n., hoping that clonidine may help so as to mitigate medications side effect risks Group and milieu therapy. Discharge planning. Patient educated on: diagnosis and medication risk/benefits Informed Consent: understands Reason for continued inpatient stay Substantial Risk for: rapid decompensation Time Spent With Patient Time: Total time managing care of this patient today ____ minutes.
[2023-04-02] MEDS: lamoTRIgine 25 MG TABLET PO (14:51)
[2023-04-02 17:38] VITALS: BP 165/87; PULSE 80; RESP 18; TEMP 36.9; O2SAT 100
[2023-04-02 21:05] VITALS: BP 148/78; PULSE 84
[2023-04-02] MEDS: cloNIDine HCL 0.1 MG TABLET PO (21:10)
[2023-04-02] MEDS: Lithium Carbonate ER 450 MG TABLET.ER 900 MG PO (21:10)
[2023-04-02] MEDS: QUEtiapine Fumarate 50 MG TABLET 150 MG PO (23:04)
[2023-04-03 08:00] VITALS: BP 141/80; PULSE 74; RESP 18; TEMP 36.7; O2SAT 100
[2023-04-03] MEDS: buPROPion HCl XL 150 MG TAB.ER.24H PO (08:45)
[2023-04-03] MEDS: amLODIPine Besylate 10 MG TABLET PO (08:45)
[2023-04-03] MEDS: lamoTRIgine 25 MG TABLET PO (08:46)
[2023-04-03] MEDS: Lithium Carbonate ER 300 MG TABLET.ER 600 MG PO (08:46)
--- NOTE | 2023-04-03 10:20 | P.PNPSI_ITS ---
Subjective Subjective Date of Service: 04/03/23 Reason For Visit: depression Interim History: Met with patient; discussed with team Patient reports that his little as changed; he remains still very depressed. He shared that he knows he needs to work on his depression and other ways besides medication management. Hand Shoe Cutter again broach the topic of therapy which patient has thus far been hesitant to embrace; however in further discussion patient is warming to the idea and starting to understand its necessity. He says he really wants to progress in treatment so he does not have to keep coming back to the hospital, saying he would like this to be the last time. Patient agrees to inc reasing Wellbutrin. Patient has appeared internally preoccupied at times and sba underwriter asked about AVH to which patient thoroughly denies current or history. Mental Status Exam Mental Status Exam Narrative: Pt is alert and oriented; behavior is cooperative, friendly and calm; patient is not in distress; dressed in hospital attire with adequate hygiene; mood is described as depressed and affect congruent, downcast; eye contact appropriate; Speech is a little soft but normal rate and prosody and not pressured; some psychomotor agitation/retardation present; thought process is organized and goal directed; Thought content is on depression, sadness, trying to be hopeful for treatment; otherwise pertinent to relevant topics and without any delusional content, paranoid ideations or grandiosity; denies any SI/HI. Intermittently seems internally preoccupied but denies AVH. Patients insight and judgment fair. Diagnostics Vital Signs (24Hr): Vital Signs - 24 hr 04/02/23 17:38 04/02/23 21:05 Temperature 98.4 F Pulse Rate 80 84 Respiratory Rate 18 Blood Pressure 165/87 H 148/78 H Pulse Oximetry 100 Oxygen Delivery Method Room Air BMI result Body Mass Index 37.1 Labs 03/30/23 22:19 04/01/23 07:12 Medications Medications Current Medications Acetaminophen (Acetaminophen 325 Mg Tablet) 650 mg PO Q6H PRN PRN Reason: Headache/Pain Mild Scale (1-3) Al Hydroxide/Mg Hydroxide (Magnesium Hydrox/Alum Hydrox 30 Ml Oral.Susp) 30 ml PO Q6H PRN PRN Reason: Heartburn/Nausea Amlodipine Besylate (Amlodipine Besylate 10 Mg Tablet) 10 mg PO DAILY [facility]; Protocol Last Admin: 04/03/23 08:45 Dose: 10 mg Bupropion HCl (Bupropion Hcl Xl 150 Mg Tab.Er.24h) 150 mg PO DAILY [facility] Last Admin: 04/03/23 08:45 Dose: 150 mg Clonidine HCl (Clonidine Hcl 0.1 Mg Tablet) 0.1 mg PO BEDTIME [facility]; Protocol Last Admin: 04/02/23 21:10 Dose: 0.1 mg Clonidine HCl (Clonidine Hcl 0.1 Mg Tablet) 0.1 mg PO Q4H PRN; Protocol PRN Reason: anxiety Hydroxyzine HCl (Hydroxyzine Hcl 50 Mg Tablet) 50 mg PO Q6H PRN PRN Reason: Anxiety Lamotrigine (Lamotrigine 25 Mg Tablet) 25 mg PO DAILY [facility] Last Admin: 04/03/23 08:46 Dose: 25 mg [place] Carbonate ([place] Carbonate Er 300 Mg Tablet.Er) 600 mg PO DAILY [facility] Last Admin: 04/03/23 08:46 Dose: 600 mg [place] Carbonate ([place] Carbonate Er 450 Mg Tablet.Er) 900 mg PO BEDTIME [facility] Last Admin: 04/02/23 21:10 Dose: 900 mg Magnesium Hydroxide (Milk Of Magnesia 30 Ml Oral.Susp) 30 ml PO DAILY PRN PRN Reason: Constipation Quetiapine Fumarate (Quetiapine Fumarate 50 Mg Tablet) 150 mg PO BEDTIME PRN PRN Reason: insomnia Last Admin: 04/02/23 23:04 Dose: 150 mg Allergies Allergies Allergy/AdvReac Type Severity Reaction Status Date / Time No Known Allergies Allergy Verified 03/01/23 02:07 Assessment & Plan Assessment & Plan (1) Bipolar 1 disorder, depressed, severe: Status: Acute Code(s): F31.4 - Bipolar disorder, current episode depressed, severe, without psychotic features (2) PTSD (post-traumatic stress disorder): Status: Acute Code(s): F43.10 - Post-traumatic stress disorder, unspecified (3) Hypertension: Status: Acute Code(s): I10 - Essential (primary) hypertension Plan 33 yo male that was recently discharged from [facility] [place]ry on 03/05/23 with a diagnosis of bipolar disorder. He presented with increased depression with vague SI after an episode of agitation at home where he threw the phone on the round and walked out towards [facility] [place]. Hospital course: 04/02 on admission lithium was continued; today increased back to home dose; covering provider started on Wellbutrin for depression which will be continued; also started on Lamictal since Wellbutrin can irritate insomnia and Lamictal as a mood stabilizer, generally indicated for continued bipolar depression but also because it has help with PTSD and less undesirable side effect profile than Seroquel 04/03 remains depressed but engaged in treatment and becoming open to including outpatient therapy into his overall treatment plan. Agrees to increased W ellbutrin Plan: CV Q 15 minute checks lithium ER 600 mg daily [place] ER 900 mg q.h.s. (increased back to home dose) Increase to Wellbutrin XL 300 mg daily, started this weekend for depression Started Lamictal 25 mg daily; discussed risks/side effects of this medication including Iftikhar Kimball Clonidine 0.1 mg q.h.s. as well as p.r.n for insomnia. Also p.r.n. for anxiety for insomnia Switching Seroquel 150 q.h.s. to a p.r.n., hoping that clonidine may help so as to mitigate medications side effect risks Group and milieu therapy. Discharge planning. Patient educated on: diagnosis, medication risk/benefits and therapeutic strategies Informed Consent: understands Reason for continued inpatient stay Substantial Risk for: rapid decompensation and med/psych decompensation Time Spent With Patient Time: Total time managing care of this patient today ____ minutes.
[2023-04-03 18:00] VITALS: BP 164/89; PULSE 91; TEMP 36.4
[2023-04-03] MEDS: QUEtiapine Fumarate 50 MG TABLET 150 MG PO (20:35)
[2023-04-03] MEDS: cloNIDine HCL 0.1 MG TABLET PO (20:36)
[2023-04-03] MEDS: Lithium Carbonate ER 450 MG TABLET.ER 900 MG PO (20:37)
--- NOTE | 2023-04-04 09:31 | HO.PSYCHPN ---
Subjective Subjective Date of Service: 04/04/23 Reason For Visit: depression Interim History: Met with patient; discussed with team Patient reports that he is doing okay; he says depression has not changed much however he says he remains stable. Denies any medication side effect from increase in Wellbutrin; still using Seroquel at bedtime for sleep which he feels is needed for his insomnia. Patient shared that the acuity on the unit is triggering and that he would like to discharge soon and continue treatment as an outpatient. Patient is eating and sleeping well. He is tolerating medication regimen and has outpatient provider. Mental Status Exam Mental Status Exam Narrative: Pt is alert and oriented; behavior is cooperative, friendly and calm; patient is not in distress; dressed in hospital attire with adequate hygiene; mood is described as depressed and affect congruent, downcast; eye contact appropriate; Speech is a little soft but normal rate and prosody and not pressured; some psychomotor agitation/retardation present; thought process is organized and goal directed; Thought content is on depression, sadness, trying to be hopeful for treatment; otherwise pertinent to relevant topics and without any delusional content, paranoid ideations or grandiosity; denies any SI/HI. Intermittently seems internally preoccupied but denies AVH. Patients insight and judgment fair. Diagnostics Vital Signs (24Hr): Vital Signs - 24 hr 04/03/23 18:00 Temperature 97.5 F Pulse Rate 91 Blood Pressure 164/89 H BMI result Body Mass Index 37.1 Labs 03/30/23 22:19 04/01/23 07:12 Medications Medications Current Medications Acetaminophen (Acetaminophen 325 Mg Tablet) 650 mg PO Q6H PRN PRN Reason: Headache/Pain Mild Scale (1-3) Al Hydroxide/Mg Hydroxide (Magnesium Hydrox/Alum Hydrox 30 Ml Oral.Susp) 30 ml PO Q6H PRN PRN Reason: Heartburn/Nausea Amlodipine Besylate (Amlodipine Besylate 10 Mg Tablet) 10 mg PO DAILY [facility]; Protocol Last Admin: 04/03/23 08:45 Dose: 10 mg Bupropion HCl (Bupropion Hcl Xl 300 Mg Tab.Er.24h) 300 mg PO DAILY [facility] Clonidine HCl (Clonidine Hcl 0.1 Mg Tablet) 0.1 mg PO BEDTIME [facility]; Protocol Last Admin: 04/03/23 20:36 Dose: 0.1 mg Clonidine HCl (Clonidine Hcl 0.1 Mg Tablet) 0.1 mg PO Q4H PRN; Protocol PRN Reason: anxiety Hydroxyzine HCl (Hydroxyzine Hcl 50 Mg Tablet) 50 mg PO Q6H PRN PRN Reason: Anxiety Lamotrigine (Lamotrigine 25 Mg Tablet) 25 mg PO DAILY [facility] Last Admin: 04/03/23 08:46 Dose: 25 mg [place] Carbonate ([place] Carbonate Er 300 Mg Tablet.Er) 600 mg PO DAILY [facility] Last Admin: 04/03/23 08:46 Dose: 600 mg [place] Carbonate ([place] Carbonate Er 450 Mg Tablet.Er) 900 mg PO BEDTIME [facility] Last Admin: 04/03/23 20:37 Dose: 900 mg Magnesium Hydroxide (Milk Of Magnesia 30 Ml Oral.Susp) 30 ml PO DAILY PRN PRN Reason: Constipation Quetiapine Fumarate (Quetiapine Fumarate 50 Mg Tablet) 150 mg PO BEDTIME PRN PRN Reason: insomnia Last Admin: 04/03/23 20:35 Dose: 150 mg Allergies Allergies Allergy/AdvReac Type Severity Reaction Status Date / Time No Known Allergies Allergy Verified 03/01/23 02:07 Assessment & Plan Assessment & Plan (1) Bipolar 1 disorder, depressed, severe: Status: Acute Code(s): F31.4 - Bipolar disorder, current episode depressed, severe, without psychotic features (2) PTSD (post-traumatic stress disorder): Status: Acute Code(s): F43.10 - Post-traumatic stress disorder, unspecified (3) Hypertension: Status: Acute Code(s): I10 - Essential (primary) hypertension Plan 33 [place] male that [place] [facility] [place] with a diagnosis of bipolar disorder. He presented with increased depression with vague SI after an episode of agitation at home where he threw the phone on the round and [place] out [place] [facility] [place] Hospital course: 04/02 on admission lithium was continued; today increased back to home dose; covering provider started on Wellbutrin for depression which will be continued; also started on Lamictal since Wellbutrin can irritate insomnia and Lamictal as a mood stabilizer, generally indicated for continued bipolar depression but also because it has help with PTSD and less undesirable side effect profile than Seroquel 04/03 remains depressed but engaged in treatment and becoming open to including outpatient therapy into his overall treatment plan. Agrees to increased Wellbutrin 04/04 patient remains depressed but says he is stable. He would like to discharge feeling that the acuity on the unit is triggering and counterproductive for him. He remains without any SI, AVH and has outpatient providers. While short story writer would like patient to remain on the unit longer to see if depressive symptoms can be further reduced, Discussed with social media coordinator who agrees that patient is safe for discharge. Patient is not in imminent risk for harm to self or others -will get lithium level and associated lab work though patient his not fully reach steady state. Plan: CV Q 15 minute checks lithium ER 600 mg daily [place] ER 900 mg q.h.s. (increased back to home dose) Increase to Wellbutrin XL 300 mg daily, started this weekend for depression Started Lamictal 25 mg daily; discussed risks/side effects of this medication including Iftikhar Kimball Clonidine 0.1 mg q.h.s. as well as p.r.n for insomnia. Also p.r.n. for anxiety for insomnia Switching Seroquel 150 q.h.s. to a p.r.n., hoping that clonidine may help so as to mitigate medications side effect risks Group and milieu therapy. Discharge planning. Patient educated on: diagnosis and medication risk/benefits Informed Consent: understands Reason for continued inpatient stay Substantial Risk for: stable for discharge Time Spent With Patient Time: Total time managing care of this patient today ____ minutes.
[2023-04-04] MEDS: Lithium Carbonate ER 300 MG TABLET.ER 600 MG PO (09:41)
[2023-04-04] MEDS: buPROPion HCl XL 300 MG TAB.ER.24H PO (09:41)
[2023-04-04] MEDS: lamoTRIgine 25 MG TABLET PO (09:41)
[2023-04-04] MEDS: amLODIPine Besylate 10 MG TABLET PO (09:42)
[2023-04-04 09:43] VITALS: BP 133/82; PULSE 86; RESP 18; TEMP 36.7; O2SAT 99
[2023-04-04] MEDS: hydrOXYzine HCL 50 MG TABLET PO (12:34)
--- NOTE | 2023-04-04 17:11 | HO.PSYCHPN ---
Subjective Subjective Date of Service: 04/04/23 Reason For Visit: depression Diagnostics Vital Signs (24Hr): Vital Signs - 24 hr 04/03/23 18:00 04/04/23 09:43 Temperature 97.5 F 98.1 F Pulse Rate 91 86 Respiratory Rate 18 Blood Pressure 164/89 H 133/82 Pulse Oximetry 99 Oxygen Delivery Method Room Air BMI result Body Mass Index 37.1 Labs 03/30/23 22:19 04/01/23 07:12 Medications Medications Current Medications Acetaminophen (Acetaminophen 325 Mg Tablet) 650 mg PO Q6H PRN PRN Reason: Headache/Pain Mild Scale (1-3) Al Hydroxide/Mg Hydroxide (Magnesium Hydrox/Alum Hydrox 30 Ml Oral.Susp) 30 ml PO Q6H PRN PRN Reason: Heartburn/Nausea Amlodipine Besylate (Amlodipine Besylate 10 Mg Tablet) 10 mg PO DAILY [facility]; Protocol Last Admin: 04/04/23 09:42 Dose: 10 mg Bupropion HCl (Bupropion Hcl Xl 300 Mg Tab.Er.24h) 300 mg PO DAILY [facility] Last Admin: 04/04/23 09:41 Dose: 300 mg Clonidine HCl (Clonidine Hcl 0.1 Mg Tablet) 0.1 mg PO BEDTIME [facility]; Protocol Last Admin: 04/03/23 20:36 Dose: 0.1 mg Clonidine HCl (Clonidine Hcl 0.1 Mg Tablet) 0.1 mg PO Q4H PRN; Protocol PRN Reason: anxiety Hydroxyzine HCl (Hydroxyzine Hcl 50 Mg Tablet) 50 mg PO Q6H PRN PRN Reason: Anxiety Last Admin: 04/04/23 12:34 Dose: 50 mg Lamotrigine (Lamotrigine 25 Mg Tablet) 25 mg PO DAILY [facility] Last Admin: 04/04/23 09:41 Dose: 25 mg [place] Carbonate ([place] Carbonate Er 300 Mg Tablet.Er) 600 mg PO DAILY [facility] Last Admin: 04/04/23 09:41 Dose: 600 mg [place] Carbonate ([place] Carbonate Er 450 Mg Tablet.Er) 900 mg PO BEDTIME [facility] Last Admin: 04/03/23 20:37 Dose: 900 mg [place] Hydroxide (Milk Of Magnesia 30 Ml Oral.Susp) 30 ml PO DAILY PRN PRN Reason: Constipation Quetiapine Fumarate (Quetiapine Fumarate 50 Mg Tablet) 150 mg PO BEDTIME PRN PRN Reason: insomnia Last Admin: 04/03/23 20:35 Dose: 150 mg Allergies Allergies Allergy/AdvReac Type Severity Reaction Status Date / Time No Known Allergies Allergy Verified 03/01/23 02:07 Assessment & Plan Assessment & Plan (1) Bipolar 1 disorder, depressed, severe: Status: Acute Code(s): F31.4 - Bipolar disorder, current episode depressed, severe, without psychotic features (2) PTSD (post-traumatic stress disorder): Status: Acute Code(s): F43.10 - Post-traumatic stress disorder, unspecified (3) Hypertension: Status: Acute Code(s): I10 - Essential (primary) hypertension Plan 33 yo male that was recently discharged from [facility] [place] inpatient psychiatry on 03/05/23 with a diagnosis of bipolar disorder. He presented with increased depression with vague SI after an episode of agitation at home where he threw the phone on the round and walked out towards [facility] [place]. Hospital course: 04/02 on admission lithium was continued; today increased back to home dose; covering provider started on Wellbutrin for depression which will be continued; also started on Lamictal since Wellbutrin can irritate insomnia and Lamictal as a mood stabilizer, generally indicated for continued bipolar depression but also because it has help with PTSD and less undesirable side effect profile than Seroquel 04/03 remains depressed but engaged in treatment and becoming open to including outpatient therapy into his overall treatment plan. Agrees to increased Wellbutrin 04/04 patient remains depressed but says he is stable. He would like to discharge feeling that the acuity on the unit is triggering and counterproductive for him. He remains without any SI, AVH and has outpatient providers. While caption writer would like patient to remain on the unit longer to see if depressive symptoms can be further reduced, Discussed with social media strategist who agrees that patient is safe for discharge. Patient is not in imminent risk for harm to self or others -will get lithium level and associated lab work though patient his not fully reach steady state. Plan: CV Q 15 minute checks lithium ER 600 mg daily [place] ER 900 mg q.h.s. (increased back to home dose) Increase to Wellbutrin XL 300 mg daily, started this weekend for depression Started Lamictal 25 mg daily; discussed risks/side effects of this medication including Iftikhar Kimball Clonidine 0.1 mg q.h.s. as well as p.r.n for insomnia. Also p.r.n. for anxiety for insomnia Switching Seroquel 150 q.h.s. to a p.r.n., hoping that clonidine may help so as to mitigate medications side effect risks Group and milieu therapy. Discharge planning. Time Spent With Patient Time: Total time managing care of this patient today ____ minutes.
[2023-04-04 18:00] VITALS: BP 150/77; PULSE 100; RESP 18; TEMP 37; O2SAT 100
[2023-04-04] MEDS: cloNIDine HCL 0.1 MG TABLET PO (21:22)
[2023-04-04] MEDS: Lithium Carbonate ER 450 MG TABLET.ER 900 MG PO (21:22)
[2023-04-04] MEDS: QUEtiapine Fumarate 50 MG TABLET 150 MG PO (21:22)
[2023-04-05 06:00] VITALS: BP 112/75; PULSE 84; RESP 16; TEMP 36.4; O2SAT 99
[2023-04-05] MEDS: Lithium Carbonate ER 300 MG TABLET.ER 600 MG PO (09:02)
[2023-04-05] MEDS: amLODIPine Besylate 10 MG TABLET PO (09:02)
[2023-04-05] MEDS: buPROPion HCl XL 300 MG TAB.ER.24H PO (09:03)
[2023-04-05] MEDS: lamoTRIgine 25 MG TABLET PO (09:03)
[2023-04-05 09:21] LABS: Blood Urea Nitrogen 9 mg/dL (9-16); Creatinine Clr Calc Pharmacy 157.9; Estimated Glomerular Filt Rate > 60
[2023-04-05 09:38] LABS: TSH reflex Free T4 4.82 uIU/mL (0.32-4.0)
--- NOTE | 2023-04-05 09:46 | P.DS_ITS ---
DS: Providers Provider Date of Service: 04/05/23 Date of admission: 03/31/23 16:31 Date of discharge: 04/05/23 Primary care physician: Unknown Physician Attending physician on admission: Zeus Mckeon Attending physician on discharge: Zeus Mckeon DS: Diagnosis Discharge Diagnosis (1) Bipolar 1 disorder, depressed, severe: Status: Acute (2) PTSD (post-traumatic stress disorder): Status: Acute (3) Hypertension: Status: Acute DS: Medications Discharge Medications Home Medications: Home Medications Medication Instructions Recorded Confirmed amlodipine 10 mg tablet 10 mg PO DAILY 03/30/23 03/30/23 Previous Rx's Medication Instructions Recorded bupropion HCl 300 mg 24 hr tablet, 300 mg PO DAILY 30 days #30 tabs 04/05/23 extended release clonidine HCl 0.1 mg tablet 0.1 mg PO BEDTIME 30 days #30 tabs 04/05/23 hydroxyzine HCl 50 mg tablet 50 mg PO Q6H PRN Anxiety 30 days 04/05/23 #90 tabs lamotrigine 25 mg tablet See Rx Instructions .Route 04/05/23 .COMPLEX #48 tabs lithium carbonate 300 mg See Rx Instructions .Route 04/05/23 tablet,extended release .COMPLEX 30 days #150 tabs quetiapine 50 mg tablet 150 mg PO BEDTIME 30 days #90 tabs 04/05/23 Mental Status Exam Mental Status Exam Narrative: Pt is alert and oriented; behavior is cooperative, friendly and calm; patient is not in distress; adequately groomed; mood is described as depressed and affect congruent; eye contact appropriate; Speech is normal volume, rate and prosody and not pressured; no psychomotor agitation/retardation present; thought process is organized and goal directed; Thought content is on treatment; dealing with depression; hopeful for treatment; otherwise pertinent to relevant topics and without any delusional content, paranoid ideations or grandiosity; denies any SI/HI. Intermittently seems internally preoccupied but denies AVH. Patients insight and judgment fair. Data Data Completed and Pending Completed studies during hospitalization [Text1]: 03/30/23 03/30/23 03/30/23 22:19 22:19 22:19 WBC 15.3 H RBC 5.16 Hgb 14.2 Hct 43.3 MCV 83.9 MCH 27.5 MCHC 32.8 RDW 14.1 Plt Count 303 MPV 10.4 Immature Gran % (Auto) 0.7 H Neut % (Auto) 74.8 H Lymph % (Auto) 16.1 L [place] % (Auto) 4.9 Eos % (Auto) 3.1 Baso % (Auto) 0.4 Lymph # (Auto) 2.5 [place] # (Auto) 0.8 Eos # (Auto) 0.5 H Baso # (Auto) 0.1 Abs Immat Gran (auto) 0.11 H Absolute Neuts (auto) 11.5 H Absolute Nucleated RBC 0.000 Nucleated RBC % (auto) 0.0 Sodium 138 Potassium 3.5 Chloride 101 Carbon Dioxide 27 Anion Gap 14 BUN 11 Creatinine 0.99 Estim Creat Clear Calc 121.2 Estimated GFR > 60 Random Glucose 118 H Fasting Glucose Calcium 9.6 Total Bilirubin 0.3 AST 20 ALT 50 H Alkaline Phosphatase 140 H Total Protein 7.5 Albumin 4.2 Triglycerides Cholesterol LDL Cholesterol, Calc HDL Cholesterol Vitamin B12 Folate TSH Free T4 Urine Color Urine Appearance Urine pH Ur Specific Holt Urine Protein Urine Glucose (UA) Urine Ketones Urine Blood Urine Nitrite Ur Leukocyte Esterase Urine Opiates Screen Urine Fentanyl Screen Ur Barbiturates Screen Ur Phencyclidine Scrn Ur Amphetamines Screen U Benzodiazepines Scrn [place] 0.36 L Urine Cocaine Screen U Marijuana (THC) Screen Ethyl Alcohol < 10 COVID-19 ([facility]) COVID-19 Clin Com 03/30/23 03/30/23 03/30/23 22:19 23:04 23:04 WBC RBC Hgb Hct MCV MCH MCHC RDW Plt Count MPV Immature Gran % (Auto) Neut % (Auto) Lymph % (Auto) Rosebud % (Auto) Eos % (Auto) Baso % (Auto) Lymph # (Auto) [place] # (Auto) Eos # (Auto) Baso # (Auto) Abs Immat Gran (auto) Absolute Neuts (auto) Absolute Nucleated RBC Nucleated RBC % (auto) Sodium Potassium Chloride Carbon Dioxide Anion Gap BUN Creatinine Estim Creat Clear Calc Estimated GFR Random Glucose Fasting Glucose Calcium Total Bilirubin AST ALT Alkaline Phosphatase Total Protein Albumin Triglycerides Cholesterol LDL Cholesterol, Calc HDL Cholesterol Vitamin B12 Folate TSH Free T4 Urine Color Yellow Urine Appearance Clear Urine pH 6.5 Ur Specific Holt 1.010 Urine Protein Negative Urine Glucose (UA) Negative Urine Ketones Negative Urine Blood Negative Urine Nitrite Negative Ur Leukocyte Esterase Negative Urine Opiates Screen Not Detected Urine Fentanyl Screen Not Detected Ur Barbiturates Screen Not Detected Ur Phencyclidine Scrn Not Detected Ur Amphetamines Screen Not Detected U Benzodiazepines Scrn Not Detected [place] Urine Cocaine Screen Not Detected U Marijuana (THC) Screen Not Detected Ethyl Alcohol COVID-19 ([facility]) Negative COVID-19 Clin Com See Note 04/01/23 04/01/23 04/05/23 07:12 07:12 08:24 WBC RBC Hgb Hct MCV MCH MCHC RDW Plt Count MPV Immature Gran % (Auto) Neut % (Auto) Lymph % (Auto) Rosebud % (Auto) Eos % (Auto) Baso % (Auto) Lymph # (Auto) [place] # (Auto) Eos # (Auto) Baso # (Auto) Abs Immat Gran (auto) Absolute Neuts (auto) Absolute Nucleated RBC Nucleated RBC % (auto) Sodium 138 Potassium 4.0 Chloride 104 Carbon Dioxide 28 Anion Gap 10 L BUN 10 9 Creatinine 0.79 0.76 Estim Creat Clear Calc 151.9 157.9 Estimated GFR > 60 > 60 Random Glucose Fasting Glucose 91 Calcium 9.3 Total Bilirubin 0.4 AST 21 ALT 47 H Alkaline Phosphatase 119 H Total Protein 6.7 Albumin 3.7 Triglycerides 103 Cholesterol 215 LDL Cholesterol, Calc 155 HDL Cholesterol 40 Vitamin B12 382 Folate 6.3 TSH 2.83 4.82 H Free T4 0.93 Pending Urine Color Urine Appearance Urine pH Ur Specific Holt Urine Protein Urine Glucose (UA) Urine Ketones Urine Blood Urine Nitrite Ur Leukocyte Esterase Urine Opiates Screen Urine Fentanyl Screen Ur Barbiturates Screen Ur Phencyclidine Scrn Ur Amphetamines Screen U Benzodiazepines Scrn [place] Urine Cocaine Screen U Marijuana (THC) Screen Ethyl Alcohol COVID-19 ([facility]) COVID-19 Clin Com 04/05/23 08:24 WBC RBC Hgb Hct MCV MCH MCHC RDW Plt Count MPV Immature Gran % (Auto) Neut % (Auto) Lymph % (Auto) [place] % (Auto) Eos % (Auto) Baso % (Auto) Lymph # (Auto) [place] # (Auto) Eos # (Auto) Baso # (Auto) Abs Immat Gran (auto) Absolute Neuts (auto) Absolute Nucleated RBC Nucleated RBC % (auto) Sodium Potassium Chloride Carbon Dioxide Anion Gap BUN Creatinine Estim Creat Clear Calc Estimated GFR Random Glucose Fasting Glucose Calcium Total Bilirubin AST ALT Alkaline Phosphatase Total Protein Albumin Triglycerides Cholesterol LDL Cholesterol, Calc HDL Cholesterol Vitamin B12 Folate TSH Free T4 Urine Color Urine Appearance Urine pH Ur Specific Holt Urine Protein Urine Glucose (UA) Urine Ketones Urine Blood Urine Nitrite Ur Leukocyte Esterase Urine Opiates Screen Urine Fentanyl Screen Ur Barbiturates Screen Ur Phencyclidine Scrn Ur Amphetamines Screen U Benzodiazepines Scrn [place] 0.90 Urine Cocaine Screen U Marijuana (THC) Screen Ethyl Alcohol COVID-19 ([facility]) COVID-19 Clin Com DS: Summary Hospital Course Hospital Course: Patient is a 33 yo male with bipolar depression, PTSD [place] [facility] [place] who self presents for help with continued problematic depression and intermittent episodes of agitation at home where he threw the phone, broke a dresser. On admission, patient had calmed down. He talked about how he remains depressed and which triggers significant frustration and then anger and he will intermittently throw or punch things; he denies any thoughts, intentions to harm anyone else.Patient denies any suicidally. He has been taking his medications regularly though he did skip 2 days worth of medications just to see how he would do, quickly realizing he need them for his stability and insomnia. Discussed medication management and patient agreed to regimen. His lithium was continued at home dose. Patient asks for help with depression and was started on Wellbutrin which was increased at 300 mg. He was also started on Lamictal with the idea that his depression might require 2 mood stabilizers and Lamictal can also help with PTSD; furthermore hope is to perhaps Lamictal can eventually replace Seroquel and it is unwanted side effect risk profile. Patient remained in good behavioral and impulse control throughout his time in the unit. He was engaged 1 1 sessions and attended groups; he was appropriate with peers and staff, intermittently social in the milieu though often would set and listen to music on his own. Some staff reported patient appeared internally preoccupied however he denied any AVH at all present or past. During his stay the overall acuity on the unit was rather high and patient said that it was becoming triggering and he would like to discharge and just continue treatment in the community. He reported that his depression remained but he felt stable. Patient was sleeping and eating well, utilizing Seroquel and clonidine. Patient has established outpatient providers. Patient is appropriate to continue treatment in the community. He is not in imminent risk for harm to self or others and request for discharge honored. Patient discharged before steady state could be determined however patient has remained on his home dose of lithium which he has tolerated; labs drawn and BUN creatinine WNL and lithium within therapeutic range. Patient's TSH minimally elevated (free T4 pending); labs discussed with patient who will follow-up with outpatient provider. Time spent discussing smoking cessation with patient: 3 to 10 minutes Status at Discharge Functional status at discharge: independent ambulation Overall status at discharge: patient is back to baseline Time Spent with Patient Time attestation: Total time managing care of this patient today ____ minutes. Time spent: Greater than 30 minutes Discharge Plan Discharge Anticipated Discharge Date/Time: 04/05/23 11:30 Patient Disposition: Home, Self-Care Discharge Diagnosis: bipolar I, recurrent, severe, most recent depressed in partial remission Referrals: Jaci Bennett: [facility] [facility] [place] ([facility]): Therapy [Other] - 04/11/23 11:00 am (Follow-up discharge appointment with therapist Appointment in person at [facility] in Person.) Physician,Unknown J [Primary Care Provider] - 1 Week Discharge Medications: New clonidine HCl 0.1 mg Tablet 0.1 mg PO BEDTIME 30 Days Qty: 30 1RF Protocol: Hold for SBP< HOLD for SBP < : 90 bupropion HCl 300 mg Tablet Extended Release 24 Hr 300 mg PO DAILY 30 Days Qty: 30 1RF hydroxyzine HCl 50 mg Tablet 50 mg PO Q6H PRN (Reason: Anxiety) 30 Days Qty: 90 1RF lamotrigine 25 mg Tablet See Rx Instructions .ROUTE .COMPLEX Qty: 48 0RF Rx Instructions: take 1 tab daily for 11 days; then take 2 tabs daily Continued amlodipine 10 mg tablet 10 mg PO DAILY quetiapine 50 mg tablet 150 mg PO BEDTIME 30 Days Qty: 90 1RF Changed lithium carbonate 300 mg tablet extended release See Rx Instructions .ROUTE .COMPLEX 30 Days Qty: 150 1RF Rx Instructions: take 2 tabs in the morning and take 3 tabs at bedtime Discharge Orders: Discharge Order (Routine); Ordered 04/05/23 Ordered By: Zeus Mckeon Diet: Regular diet Activity on Discharge: As tolerated Stand Alone Forms: Patient Portal Discharge page Care Plan Goals: Maintain mood and safe behaviors Take medications as prescribed Practice coping skills Continue with outpatient providers and reach out to them as needed Health Concerns: Mood stability and behaviors Plan of Treatment: Follow up with your PCP, psychiatric provider and other outpatient providers regarding above concerns Take medications as prescribed Assessment: Risk assessment at time of discharge:? Patient was interviewed prior to discharge and found to be fully oriented and without any SI or HI. Patient has insight and demonstrates good judgment in terms of wanting to pursue treatment. Patient is not in imminent risk of harm to self or others and has a safety plan that includes presenting to the closest ER or calling 911 if feeling unsafe.? Patient has been observed closely by nursing and unit staff throughout a dmission; patient has not engaged in any behaviors that suggest dangerousness to self or others and has demonstrated appropriate behaviors and impulse control
[2023-04-05 10:17] LABS: Free T4 (Free Thyroxine) 0.85 ng/dL (0.71-1.85)
== END 2023-04-05 12:53 | disposition home or self-care (01) | DRG 753 ==
LOC: HO.ED 03-31 00:40 → HO.PM5 03-31 17:18
PROVIDERS: Admitting Provider Psychiatry & Neurology Psychiatry; Emergency Provider Emergency Medicine; Visit Provider Psychiatry & Neurology Psychiatry
DX: F31.4 Bipolar disorder, current episode depressed, severe, without psychotic features (principal); F43.10 Post-traumatic stress disorder, unspecified; Z20.822 Contact with and (suspected) exposure to COVID-19; I10 Essential (primary) hypertension; Z87.891 Personal history of nicotine dependence; Z79.899 Other long term (current) drug therapy
CPT/HCPCS: 36415; 80053; 80061; 80178; 80307; 81003; 82565; 82607; 82746; 84439; 84443; 84520; 85025; 87635; 99285; S9485

== ENCOUNTER → 2023-03-31 16:31 | Outpatient (BNV) | payer OTHER, SELFPAY | PROVIDERS: Admitting Provider Psychiatry & Neurology Psychiatry; Emergency Provider Emergency Medicine; Visit Provider Psychiatry & Neurology Psychiatry | DX: F31.4 Bipolar disorder, current episode depressed, severe, without psychotic features (principal); F43.10 Post-traumatic stress disorder, unspecified; I10 Essential (primary) hypertension | CPT/HCPCS: 90792; 99232; 99239 ==

== ENCOUNTER → 2023-05-24 12:12 | Outpatient (BNVA) | payer SELFPAY | PROVIDERS: Visit Provider Physician Assistant | DX: Z02.79 Encounter for issue of other medical certificate (principal) ==

== ENCOUNTER 2024-02-27 12:12 | Inpatient (IN) | payer MEDICAID, OTHER, SELFPAY ==
--- NOTE | 2024-02-27 | ECG_ITS ---
Test Reason : HTN, off meds for several months, R/O QTc prolonga Blood Pressure : / mmHG Vent. Rate : 081 BPM Atrial Rate : 081 BPM P-R Int : 168 ms QRS Dur : 108 ms QT Int : 394 ms P-R-T Axes : 057 -25 037 degrees QTc Int : 457 ms Normal sinus rhythm Normal ECG When compared with ECG of 01-MAR-2023 12:21, No significant change was found Referred By: Harriet Pablo Electronically Signed By:Junior Bailey
--- NOTE | 2024-02-27 12:20 | ED_ITS ---
HPI - General Adult General Chief complaint: Behavioral Concerns Stated complaint: Crisis Time Seen by Provider: 02/27/24 12:20 Source: patient Mode of arrival: ambulatory Limitations: no limitations History of Present Illness ED Provider: Janae Antonio PA-C HPI narrative: Patient is a 34 year old assigned male at with a history of bipolar disorder, HTN, and PTSD presenting to the emergency department today with increased anger over life stresses. Patient states that he is feeling increasingly angry and hopeless because of certain life events. Patient denies any SI or HI. Patient denies any dizziness, lightheadedness, abdominal pain, nausea, vomiting, fever, chills, blurry vision, double vision, loss of vision, chest pain, difficulty breathing, shortness of breath, back pain, night sweats, pain with urination, increased urinary frequency, increased urinary urgency, blood in his urine or stool, syncope or a near syncopal episode, recent trauma or falls, bowel incontinence, bladder incontinence, or any other complaints at this time. Relieving factors: none Exacerbating factors: none Associated symptoms: denies other symptoms Treatments prior to arrival: none Related Data Home Medications ?Medication ?Instructions ?Recorded ?Confirmed amlodipine 10 mg tablet 10 mg PO DAILY 03/30/23 03/30/23 Previous Rx's ?Medication ?Instructions ?Recorded bupropion HCl 300 mg 24 hr tablet, 300 mg PO DAILY 30 days #30 tabs 04/05/23 extended release clonidine HCl 0.1 mg tablet 0.1 mg PO BEDTIME 30 days #30 tabs 04/05/23 hydroxyzine HCl 50 mg tablet 50 mg PO Q6H PRN Anxiety 30 days 04/05/23 #90 tabs lamotrigine 25 mg tablet See Rx Instructions .Route 04/05/23 .COMPLEX #48 tabs lithium carbonate 300 mg See Rx Instructions .Route 04/05/23 tablet,extended release .COMPLEX 30 days #150 tabs quetiapine 50 mg tablet 150 mg (3 x 50 mg) PO BEDTIME 30 04/05/23 days #90 tabs Allergies Allergy/AdvReac Type Severity Reaction Status Date / Time No Known Allergies Allergy Verified 02/27/24 12:35 Review of Systems 2 Constitutional: Constitutional: Reports no additional constitutional complaints, Denies chills, Denies fever(s) and Denies night sweats Eyes: Eyes: Reports no additional eye complaints, Denies blurry vision, Denies change in vision, Denies diplopia, Denies eye discharge, Denies loss of vision and Denies eye pain ENT: Denies dizziness Cardiovascular: Cardiovascular: Reports no additional cardiovascular complaints, Denies chest pain, Denies lightheadedness, Denies Loss of Consciousness and Denies dyspnea Respiratory: Respiratory: Reports no additional respiratory complaints and Denies dyspnea Gastrointestinal: Gastrointestinal: Reports no additional gastrointestinal complaints, Denies abdominal pain, Denies melena, Denies hematochezia, Denies change in bowel habits and Denies change in stool character Genitourinary: Genitourinary: Reports no additional male genitourinary complaints, Denies hematuria, Denies oliguria, Denies difficulty urinating, Denies dysuria, Denies urinary frequency, Denies urinary hesitancy, Denies urinary incontinence and Denies urinary urgency Musculoskeletal: Musculoskeletal: Reports no additional musculoskeletal complaints, Denies numbness and Denies tingling Neurologic: Denies dizziness, Denies loss of vision, Denies numbness and Denies tingling Psychiatric: Psychiatric: Reports hopelessness and Reports anhedonia Endocrine: Endocrine: Reports no additional endocrine complaints Hematologic/Lymphatic: Hematologic/Lymphatic: Reports no additional hematologic/lymphatic complaints Allergic/Immunologic: Allergic/Immunologic: Reports no additional allergic/immunologic complaints PMF Past Medical History Attestation statement: The following information was validated with the patient. Source: old records reviewed and nursing notes reviewed Medical History Bipolar 1 disorder, depressed, severe PTSD (post-traumatic stress disorder) Hypertension Social History Social History Household Members: Family Household Members Other:: mom, niece, step father and sister Housing: Apartment Do you presently have visiting nurse or other home services: No Alcohol intake: former Patient Tobacco Use Status: Former Tobacco user Tobacco use type: Cigarette Cigarettes Per Day: 2 Years Smoked: 15 Smoked in Last 30 Days: No e-Cigarette/Vaping Use: Never Used Second Hand Smoke Exposure: No Use of substances other than those prescribed or required for medical reasons: No Substance Use Type: Marijuana and Caffiene Advance Directives: No service: No Sexual orientation: Straight/Heterosexual Physical Exam ED Vital Signs: Vital Signs - 24 hr 02/27/24 12:34 02/27/24 12:40 Temperature 98.0 F 98.0 F Pulse Rate 82 82 Respiratory Rate 18 18 Blood Pressure 175/99 H 175/99 H Pulse Oximetry 98 98 Oxygen Delivery Method Room Air Room Air BMI result Body Mass Index 38.4 Const General: cooperative, no acute distress, alert and awake Nutritional Appearance: well nourished Orientation/consciousness: patient oriented x3 Limitations: no limitations HENMT Head: Yes normal to inspection and Yes atraumatic Ears: hearing grossly normal bilaterally and external ears normal General nose exam: Normal external nose present, no nasal discharge noted and no epistaxis Face and sinus: Yes normal facial exam, No abrasion and No laceration Mouth: Normal oral and palatal mucosa present, no drooling and no muffled voice Eyes General: appearance normal, both eyes and all related structures Periorbital: periorbital findings normal Eyelids: Yes eyelids normal Conjunctivae: conjunctivae normal Pupils: Equal, round and reactive pupils present EOM: EOMs intact bilaterally Neck Neck: Yes normal visual inspection, Yes full ROM and Yes no lymphadenopathy Chest Chest palpation & inspection: normal inspection of the chest Resp Effort & Inspection: normal respiratory effort and able to speak in complete sentences GI Inspection: Yes normal to inspection Neuro General: patient oriented x3 and moves all extremities Cranial nerves: Yes Equal, round and reactive pupils present Cognition (Neuro): normal cognition Motor exam (neuro): 5/5 motor strength present throughout Sensory Exam: Normal double simultaneous stimulation for sensation Coordination: [id number] test normal Extrem General: Yes normal to inspection, Yes full ROM and Yes capillary refill normal Psych Appearance: grossly normal Mental Status: mental status grossly normal Affect: Sad affect present Attitude: cooperative Thought process: Normal thought process present Thought content: Normal thought content present Medical Decision Making Medical Decision Making MDM Narrative: Patient is a 34 year old assigned male at with a history of bipolar disorder, PTSD, and hypertension presenting to the emergency department today with hopelessness and anger. Patient's physical exam was as noted in the physical exam portion of this note. Patient's blood work was unremarkable. Patient's urine showed no acute process. I explained my physical exam findings as well as all test results to the patient. I answered all questions asked by the patient. Patient was evaluated by the CARE team who are recommended inpatient level of psychiatric care. Patient agrees to this. Patient placed in physician observation until he can either be admitted here or transferred to an appropriate psychiatric facility. Differential Diagnosis Differential Diagnoses: The differential diagnosis associated with the presentation includes Depression Anger Admission/Observation Consideration of admission/observation: Escalation of care including admission/observation considered Patient will be admitted for inpatient psychiatric care. Consult Healthcare Provider Management of the patient was discussed with: Behavioral Health Provider (spoke to the CARE team as noted in the MDM Rationale portion of this note.) Lab Data [facility] Lab Attestation statement: I reviewed the patient's lab results. My interpretation of these results are in the MDM Rationale portion of this note. 02/27/24 12:41 02/27/24 12:41 Labs: Lab Results 02/27/24 02/27/24 Range/Units 12:26 12:41 WBC 11.8 H (4.8-10.8) X10*3/uL RBC 5.34 (4.60-5.80) X10*6/uL Hgb 15.0 (14.0-18.0) g/dl Hct 45.2 (42.0-52.0) % MCV 84.6 (80.0-98.0) fL MCH 28.1 (27.0-33.0) pg MCHC 33.2 (31.0-36.0) g/dl RDW 13.6 (11.0-16.0) % Plt Count 254 (160-400) X10*3/uL MPV 11.4 (9.4-12.4) fL Immature Gran % (Auto) 0.3 (0.0-0.4) % Neut % (Auto) 64.4 (45-73) % Lymph % (Auto) 25.6 (20-40) % [place] % (Auto) 6.8 (2-11) % Eos % (Auto) 2.4 (0-4) % Baso % (Auto) 0.5 (0-2) % Lymph # (Auto) 3.0 (1.2-4.9) X10*3/uL [place] # (Auto) 0.8 (0.1-1.2) X10*3/uL Eos # (Auto) 0.3 (0.0-0.4) X10*3/uL Baso # (Auto) 0.1 (0.0-0.2) X10*3/uL Abs Immat Gran (auto) 0.04 H (0.00-0.03) X10*3/uL Absolute Neuts (auto) 7.6 (2.0-8.3) x10*3/uL Absolute Nucleated RBC 0.000 (0.0-0.012) X10*3/uL Nucleated RBC % (auto) 0.0 (0.0-0.2) /100WBC Sodium 139 (135-145) mmol/L Potassium 4.0 (3.3-5.1) mmol/L Chloride 104 (96-108) mmol/L Carbon Dioxide 29 (22-29) mmol/L Anion Gap 10 L (12-20) BUN 14 (9-16) mg/dL Creatinine 0.78 (0.5-1.4) mg/dL Estim Creat Clear Calc 155.2 Estimated GFR > 60 Random Glucose 81 (60-115) mg/dL Calcium 9.5 (8.4-10.2) mg/dL Total Bilirubin 0.3 (0.0-1.0) mg/dL AST 21 (5-37) U/L ALT 41 H (0-40) U/L Alkaline Phosphatase 119 H (39-117) U/L Total Protein 7.6 (6.5-8.0) g/dL Albumin 4.3 (3.5-5.0) g/dL Urine Color Yellow Urine Appearance Clear Urine pH 5.5 (5.0-9.0) Ur Specific [place] >= 1.030 H (1.005-1.025) Urine Protein Negative (Neg-Trace) mg/dL Urine Glucose (UA) Negative (Negative) mg/dL Urine Ketones Trace (Negative) mg/dL Urine Blood Negative (Negative) Urine Nitrite Negative (Negative) Ur Leukocyte Esterase Negative (Negative) Urine Opiates Screen Not Detected (Not Detect) Ur Buprenorphine Scrn Not Detected (Not Detect) ng/mL Ur Oxycodone Screen Not Detected (Not Detect) ng/mL Urine Methadone Screen Not Detected (Not Detect) ng/mL Urine Fentanyl Screen Not Detected (Not Detect) Ur Barbiturates Screen Not Detected (Not Detect) Ur Phencyclidine Scrn Not Detected (Not Detect) Ur Amphetamines Screen Not Detected (Not Detect) U Benzodiazepines Scrn Not Detected (Not Detect) Urine Cocaine Screen Not Detected (Not Detect) U Marijuana (THC) Screen POSITIVE H (Not Detect) Ethyl Alcohol < 10 mg/dL COVID-19 ([facility]) Negative (Negative) COVID-19 Clin Com See Note Chronic Conditions Patient?s care impacted by: Hypertension Critical Care Time Critical Care Time Critical Care Time: Yes Total Critical Care Time: 32 Attestation: I spent 32 minutes of Critical Care Time with this patient. This does not include time spent on separately reported billable procedures. Discharge Plan Discharge Clinical Impression: Depression Patient Disposition: Still a Patient Prescriptions: No Action amlodipine 10 mg tablet 10 mg PO DAILY clonidine HCl 0.1 mg Tablet 0.1 mg PO BEDTIME 30 Days Qty: 30 1RF Protocol: Hold for SBP< HOLD for SBP < : 90 bupropion HCl 300 mg Tablet Extended Release 24 Hr 300 mg PO DAILY 30 Days Qty: 30 1RF hydroxyzine HCl 50 mg Tablet 50 mg PO Q6H PRN (Reason: Anxiety) 30 Days Qty: 90 1RF lamotrigine 25 mg Tablet See Rx Instructions .ROUTE .COMPLEX Qty: 48 0RF Rx Instructions: take 1 tab daily for 11 days; then take 2 tabs daily lithium carbonate 300 mg tablet extended release See Rx Instructions .ROUTE .COMPLEX 30 Days Qty: 150 1RF Rx Instructions: take 2 tabs in the morning and take 3 tabs at bedtime quetiapine 50 mg tablet 150 mg PO BEDTIME 30 Days Qty: 90 1RF Print Language: Upper Sorbian
[2024-02-27 12:34] VITALS: BP 175/99; PULSE 82; RESP 18; TEMP 36.7; O2SAT 98; BMI 38.4
[2024-02-27 12:37] LABS: Appearance Urine Clear; Color Urine Yellow; Glucose Urine UA Negative (Negative); Leukocyte Esterase Urine Negative (Negative); Nitrite Urine Negative (Negative); PH 5.5 (5.0-9.0); Specific Gravity - Urine >= 1.030 (1.005-1.025); Urine Blood Negative (Negative); Urine Ketones Trace mg/dL (Negative); Urine Protein Negative (Neg-Trace)
[2024-02-27 12:40] VITALS: BP 175/99; PULSE 82; RESP 18; TEMP 36.7; O2SAT 98
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
[2024-02-27 12:47] LABS: MANUAL DIFF FLAG NO
[2024-02-27 12:50] LABS: Basophils Absolute Auto 0.1 X10*3/uL (0.0-0.2); Basophils Percent Auto 0.5 % (0-2); Eosinophils Absolute Auto 0.3 X10*3/uL (0.0-0.4); Eosinophils Percent Auto 2.4 % (0-4); Hematocrit 45.2 % (42.0-52.0); Imm Gran Abs Auto 0.04 X10*3/uL (0.00-0.03); Imm Gran Pct Auto 0.3 % (0.0-0.4); Lymphocytes Percent Auto 25.6 % (20-40); Mean Corpuscular HGB Conc 33.2 g/dl (31.0-36.0); Mean Corpuscular Hemoglobin 28.1 pg (27.0-33.0); Mean Corpuscular Volume 84.6 fL (80.0-98.0); Mean Platelet Volume 11.4 fL (9.4-12.4); Monocytes Absolute Auto 0.8 X10*3/uL (0.1-1.2); Monocytes Percent Auto 6.8 % (2-11); Neutrophils Absolute Auto 7.6 x10*3/uL (2.0-8.3); Neutrophils Percent Auto 64.4 % (45-73); Platelet Count 254 X10*3/uL (160-400); Red Blood Count 5.34 X10*6/uL (4.60-5.80); Red Cell Distribution Width 13.6 % (11.0-16.0); White Blood Count 11.8 X10*3/uL (4.8-10.8)
[2024-02-27 12:52] LABS: Amphetamine Screen Urine Not Detected (Not Detect); Barbiturates, Urine Not Detected (Not Detect); Benzodiazepines Screen Urine Not Detected (Not Detect); Buprenorphine Scr Not Detected (Not Detect); Cannabinoid Screen Urine POSITIVE (Not Detect); Cocaine Screen Urine Not Detected (Not Detect); Fentanyl, urine Not Detected (Not Detect); Methadone Screen, Urine Not Detected (Not Detect); Opiate Screen Urine Not Detected (Not Detect); Oxycodone Screen Urine Not Detected (Not Detect); Phencyclidine Screen Urine Not Detected (Not Detect)
[2024-02-27 13:01] LABS: IDNOW Serial# 152EDE1D
[2024-02-27 13:02] LABS: COVID-19 Test Negative (Negative)
[2024-02-27 13:06] LABS: Alanine Aminotransferase 41 U/L (0-40); Albumin Level 4.3 g/dL (3.5-5.0); Alkaline Phosphatase 119 U/L (39-117); Anion Gap 10 (12-20); Aspartate Amino Transferase 21 U/L (5-37); Bilirubin Total 0.3 mg/dL (0.0-1.0); Blood Urea Nitrogen 14 mg/dL (9-16); Calcium 9.5 mg/dL (8.4-10.2); Carbon Dioxide 29 mmol/L (22-29); Chloride 104 mmol/L (96-108); Creatinine Clr Calc Pharmacy 155.2; Estimated Glomerular Filt Rate > 60; Ethanol < 10 mg/dL; Glucose Random 81 mg/dL (60-115); Sodium 139 mmol/L (135-145); Total Protein 7.6 g/dL (6.5-8.0)
--- NOTE | 2024-02-27 14:59 | MHC.CARE ---
patient seen by CARE team, voluntary for inpatient LOC.
[2024-02-27 16:33] VITALS: BP 195/109; PULSE 87; RESP 18; TEMP 36.4; O2SAT 97
[2024-02-27 17:08] VITALS: BP 195/109
[2024-02-27] MEDS: amLODIPine Besylate 10 MG TABLET PO (17:08)
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
[2024-02-27 19:47] VITALS: BP 192/101; PULSE 88; RESP 18; TEMP 36.7; O2SAT 99
[2024-02-28 09:04] VITALS: BP 153/87; PULSE 71; RESP 16; TEMP 36.9; O2SAT 98
[2024-02-28] MEDS: amLODIPine Besylate 10 MG TABLET PO (09:13)
[2024-02-28 12:22] VITALS: BMI 39.5
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
[2024-02-28] MEDS: Lurasidone HCl 20 MG TABLET PO (17:03)
[2024-02-28 20:00] VITALS: BP 178/108; PULSE 126; RESP 16; TEMP 36.8; O2SAT 97
[2024-02-28 21:07] VITALS: BP 178/108
[2024-02-28] MEDS: cloNIDine HCL 0.1 MG TABLET PO (21:07)
[2024-02-28] MEDS: traZODone HCL 50 MG TABLET PO (21:08)
[2024-02-29 08:00] VITALS: BP 120/64; PULSE 97; RESP 18; TEMP 36.6; O2SAT 97
[2024-02-29 09:12] VITALS: BP 120/64
[2024-02-29] MEDS: amLODIPine Besylate 10 MG TABLET PO (09:12)
--- NOTE | 2024-02-29 16:34 | P.PNPSI_ITS ---
Subjective Subjective Date of Service: 02/29/24 Reason For Visit: Bipolar disorder PTSD Subjective Notes: Conditional Voluntary Interim History: Calm, working on a puzzle in the common area. States he is doing OK . I talked with my mom last night. Team spoke with mother today. Pt has been aggressive at home and mother is fearful of his behaviors-there will be another call on 03/03 to review specific sx of concern with her. Review of Systems Review of Systems Yes all other systems are reviewed and are negative Mental Status Exam Mental Status Exam Patient Appearance: Appropriate Patient Orientation: Person, Place, Time and Situation Level of Consciousness: Alert Patient Behavior: Guarded, Talkative and Good Eye Contact Mood Description: Constricted Affect Description: Constricted Ability to Follow Directions: Good Speech Pattern: Spontaneous Speech Memory Description: Episodic Impaired Hallucinations: None Delusions: Not Present Perceptual Disturbances: Derealization Thought Process: Distracted Thought Content: positive for Circumstantial and positive for Preoccupation Depressive Symptoms: Thoughts of /Suicide (denies) Judgement: Fair Diagnostics Vital Signs (24Hr): Vital Signs - 24 hr 02/28/24 20:00 02/28/24 21:07 02/29/24 08:00 Temperature 98.3 F 98 F Pulse Rate 126 H 97 Respiratory Rate 16 18 Blood Pressure 178/108 H 178/108 H 120/64 Pulse Oximetry 97 97 Oxygen Delivery Method Room Air Room Air 02/29/24 09:12 Temperature Pulse Rate Respiratory Rate Blood Pressure 120/64 Pulse Oximetry Oxygen Delivery Method BMI result Body Mass Index 39.5 Labs 02/27/24 12:41 02/27/24 12:41 Medications Medications Current Medications Acetaminophen (Acetaminophen 325 Mg Tablet) 650 mg PO Q6H PRN PRN Reason: Headache/Pain Mild Scale (1-3) Al Hydroxide/Mg Hydroxide (Magnesium Hydrox/Alum Hydrox 30 Ml Oral.Susp) 30 ml PO Q6H PRN PRN Reason: Heartburn/Nausea Amlodipine Besylate (Amlodipine Besylate 10 Mg Tablet) 10 mg PO DAILY [facility]; Protocol Last Admin: 02/29/24 09:12 Dose: 10 mg Clonidine HCl (Clonidine Hcl 0.1 Mg Tablet) 0.1 mg PO Q4H PRN; Protocol PRN Reason: mild anxiety/insomnia Last Admin: 02/28/24 21:07 Dose: 0.1 mg Hydroxyzine HCl (Hydroxyzine Hcl 25 Mg Tablet) 25 mg PO Q6H PRN PRN Reason: Anxiety Lurasidone HCl (Lurasidone Hcl 40 Mg Tablet) 40 mg PO DAILY@1700 YUE Magnesium Hydroxide (Milk Of Magnesia 30 Ml Oral.Susp) 30 ml PO DAILY PRN PRN Reason: Constipation Trazodone HCl (Trazodone Hcl 50 Mg Tablet) 50 mg PO BEDTIME MRX1 PRN PRN Reason: Insomnia Last Admin: 02/28/24 21:08 Dose: 50 mg Allergies Allergies Allergy/AdvReac Type Severity Reaction Status Date / Time No Known Allergies Allergy Verified 02/27/24 12:35 Assessment & Plan Assessment & Plan (1) Bipolar 1 disorder, depressed, severe: Status: Acute Code(s): F31.4 - Bipolar disorder, current episode depressed, severe, without psychotic features (2) PTSD (post-traumatic stress disorder): Status: Acute Code(s): F43.10 - Post-traumatic stress disorder, unspecified (3) Hypertension: Status: Acute Code(s): I10 - Essential (primary) hypertension Plan Patient is a 34-year-old male with history of bipolar disorder, PTSD who self presents for worsening depression and frustration. Patient said that he took lithium post discharge for about 6 months but stopped it since his depression never got any better; stopping lithium did make his depression worse. He said that he has been struggling over the last few months with PTSD symptoms, flashbacks/memories of trauma which he does not talk about and keeps press down until it boils over and he gets angry and starts punching the brunson; he says he is crying frequently throughout the day and feeling excessively sad, but no SI. Initially patient skeptical that medications will help but after review of medications it seems that Latuda 40 mg may have started to be somewhat helpful and he agrees to restart increase further. Patient has not had any manic episodes even though off lithium; denies any alcohol or drug use other than cannabis. 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 Patient has bipolar depression. It seems that lurasidone 40 mg started to help a little bit but he only took it for 2-3 months and it was never titrated further. He agrees to restart now. Discussed therapy, his experiences with it; discussed ECT, 02/28- Continue tx. Plan: CV Q 15 minutes checks Start Latuda 20 mg q.h.s.; will quickly titrate to 40 mg leave it for few days and then increase further Continue amlodipine restarted for hypertension Reason for continued inpatient stay Substantial Risk for: rapid decompensation Time Spent With Patient Time: Total time managing care of this patient today ____ minutes.
[2024-02-29 16:48] VITALS: BP 152/95
[2024-02-29] MEDS: Lurasidone HCl 40 MG TABLET PO (16:48)
[2024-02-29] MEDS: cloNIDine HCL 0.1 MG TABLET PO (16:48)
[2024-02-29 19:29] VITALS: BP 160/94; PULSE 101; O2SAT 98
--- NOTE | 2024-02-29 19:54 | PC.NURSE ---
Mr. Jimenez signed a 3 Day notice on 02/29/24 at 6pm. He is aware that it is up on Sunday03/05/24 at 6pm. He is also aware that he can rescind this at any tie. Provider and SW notified via email and VM.
[2024-02-29 20:00] VITALS: BP 152/95; PULSE 124; RESP 18; TEMP 37.7; O2SAT 97
--- NOTE | 2024-02-29 21:11 | PC.NURSE ---
Up for breakfast. After breakfast he reported his mood was, chill . Much more relaxed this morning now that he has been restarted on Latuda and has met with the secondary social studies teacher to talk about reapplying for health insurance. Throughout the day he became progressively more anxious related to events occurring on the unit. BP at 4:15pm was 152/95 and was medicated shortly thereafter with Clonidine 0.0mg PRN anxiety. Shortly before dinner he requested to submit a 3 Day Notice, which was submitted at 6pm. He said he was feeling claustrophobic and anxious, related to acuity on the unit and the amount of people around in such a small space. Vitals rechecked at 7:30pm were 160/94 and P=101. He continued to report increased anxiety. [place] Measurer PW was notified at 8:14pm to consult whether hospitalist should be notified. She requested that his vitals be rechecked at that time. At 8:20pm BP= 144/87 and P= 94. PW informed at 8:34. Report passed off to Night charge machine operator and PW informed that he is the current nurse contact.
--- NOTE | 2024-02-29 21:19 | PM.EVENT ---
Event Note Date of Service: 02/29/24 Event Note: Patient is a 34-year-old male admitted to [facility] psychiatry unit with the hospitalist consult for hypertension management. Patient has been hypertensive since being on the unit with BP as high as 195/109. Chart review indicates patient has been on multiple antihypertensive in the past, including hydrochlorothiazide 25 mg, amlodipine 10 mg, lisinopril 2.5 mg, and clonidine 0.1 mg. Patient currently receiving amlodipine 10 mg daily and clonidine 0.1 mg Q4 p.r.n. for anixety. Will restart lisinopril 2.5mg daily starting 03/01 and follow BP to titrate from there. Time Spent With Patient Time: Total time managing care of this patient today ____ minutes.
[2024-03-01] MEDS: traZODone HCL 50 MG TABLET PO ×2 (01:42→20:34)
[2024-03-01 09:00] VITALS: BP 155/97; PULSE 78; RESP 20; TEMP 36.9; O2SAT 99
[2024-03-01 09:57] VITALS: BP 155/97
[2024-03-01] MEDS: amLODIPine Besylate 10 MG TABLET PO (09:57)
[2024-03-01] MEDS: lisinopriL 2.5 MG TABLET PO (09:57)
[2024-03-01 11:44] VITALS: BP 157/94
[2024-03-01] MEDS: lisinopriL 2.5 MG TABLET 7.5 MG PO (11:44)
[2024-03-01] MEDS: Lurasidone HCl 40 MG TABLET PO (17:39)
[2024-03-01] MEDS: hydrOXYzine HCL 25 MG TABLET PO (17:40)
--- NOTE | 2024-03-01 18:32 | HO.PSYCHPN ---
Subjective Subjective Date of Service: 03/01/24 Reason For Visit: Bipolar disorder PTSD Subjective Notes: 3 Day Interim History: Calm, spending time in the common area. States he is doing OK . His affect is fllat. He signed 3 days notice Medication Compliance: Yes Side effects from medications: No Attending Groups: Intermittent Review of Systems Acute medical concerns: No Review of Systems Review of Systems Yes all other systems are reviewed and are negative Constitutional: Reports no additional constitutional complaints, Denies chills, Denies fever(s) and Denies night sweats Eyes: Reports no additional eye complaints, Denies blurry vision, Denies change in vision, Denies diplopia, Denies eye discharge, Denies loss of vision and Denies eye pain Denies dizziness Cardiovascular: Reports no additional cardiovascular complaints, Denies chest pain, Denies lightheadedness, Denies Loss of Consciousness and Denies dyspnea Respiratory: Reports no additional respiratory complaints and Denies dyspnea Gastrointestinal: Reports no additional gastrointestinal complaints, Denies abdominal pain, Denies melena, Denies hematochezia, Denies change in bowel habits and Denies change in stool character Genitourinary: Reports no additional male genitourinary complaints, Denies hematuria, Denies oliguria, Denies difficulty urinating, Denies dysuria, Denies urinary frequency, Denies urinary hesitancy, Denies urinary incontinence and Denies urinary urgency Musculoskeletal: Reports no additional musculoskeletal complaints, Denies numbness and Denies tingling Denies dizziness, Denies loss of vision, Denies numbness and Denies tingling Psychiatric: Reports hopelessness and Reports anhedonia Endocrine: Reports no additional endocrine complaints Hematologic/Lymphatic: Reports no additional hematologic/lymphatic complaints Allergic/Immunologic: Reports no additional allergic/immunologic complaints Mental Status Exam Mental Status Exam Narrative: Pt is alert and oriented; behavior is cooperative, calm; patient is not in distress; dressed casually, pena but adequate hygiene; eye glasses; mood is described as ok and affect congruent downcast, flat eye contact avoidant; Speech is a little slow and a little soft; thought process is organized and goal directed; Thought content is on struggles, past trauma; tx; otherwise pertinent to relevant topics and without any delusional content, paranoid ideations or grandiosity; denies any SI/HI. There is no evidence of perceptual disturbance. Patients insight and judgment fair Patient Appearance: Appropriate Patient Orientation: Person, Place, Time and Situation Level of Consciousness: Alert Patient Behavior: Guarded, Talkative and Good Eye Contact Mood Description: Constricted Affect Description: Constricted Ability to Follow Directions: Good Speech Pattern: Spontaneous Speech Memory Description: Episodic Impaired Diagnostics Vital Signs (24Hr): Vital Signs - 24 hr 02/29/24 19:29 02/29/24 20:00 03/01/24 09:00 Temperature 99.9 F 98.5 F Pulse Rate 101 H 124 H 78 Respiratory Rate 18 20 Blood Pressure 160/94 H 152/95 H 155/97 H Pulse Oximetry 98 97 99 Oxygen Delivery Method Room Air Room Air Room Air 03/01/24 09:57 03/01/24 09:57 03/01/24 11:44 Temperature Pulse Rate Respiratory Rate Blood Pressure 155/97 H 155/97 H 157/94 H Pulse Oximetry Oxygen Delivery Method BMI result Body Mass Index 39.5 Labs 02/27/24 12:41 02/27/24 12:41 Medications Medications Current Medications Acetaminophen (Acetaminophen 325 Mg Tablet) 650 mg PO Q6H PRN PRN Reason: Headache/Pain Mild Scale (1-3) Al Hydroxide/Mg Hydroxide (Magnesium Hydrox/Alum Hydrox 30 Ml Oral.Susp) 30 ml PO Q6H PRN PRN Reason: Heartburn/Nausea Amlodipine Besylate (Amlodipine Besylate 10 Mg Tablet) 10 mg PO DAILY [facility]; Protocol Last Admin: 03/01/24 09:57 Dose: 10 mg Clonidine HCl (Clonidine Hcl 0.1 Mg Tablet) 0.1 mg PO Q4H PRN; Protocol PRN Reason: mild anxiety/insomnia Last Admin: 02/29/24 16:48 Dose: 0.1 mg Hydroxyzine HCl (Hydroxyzine Hcl 25 Mg Tablet) 25 mg PO Q6H PRN PRN Reason: Anxiety Last Admin: 03/01/24 17:40 Dose: 25 mg Lisinopril (Lisinopril 10 Mg Tablet) 10 mg PO DAILY [facility]; Protocol Lurasidone HCl (Lurasidone Hcl 40 Mg Tablet) 40 mg PO DAILY@1700 YUE Last Admin: 03/01/24 17:39 Dose: 40 mg Magnesium Hydroxide (Milk Of Magnesia 30 Ml Oral.Susp) 30 ml PO DAILY PRN PRN Reason: Constipation Trazodone HCl (Trazodone Hcl 50 Mg Tablet) 50 mg PO BEDTIME MRX1 PRN PRN Reason: Insomnia Last Admin: 03/01/24 01:42 Dose: 50 mg Allergies Allergies Allergy/AdvReac Type Severity Reaction Status Date / Time No Known Allergies Allergy Verified 02/27/24 12:35 Assessment & Plan Assessment & Plan (1) Bipolar 1 disorder, depressed, severe: Status: Acute Code(s): F31.4 - Bipolar disorder, current episode depressed, severe, without psychotic features (2) PTSD (post-traumatic stress disorder): Status: Acute Code(s): F43.10 - Post-traumatic stress disorder, unspecified (3) Hypertension: Status: Acute Code(s): I10 - Essential (primary) hypertension Plan Patient is a 34-year-old male with history of bipolar disorder, PTSD who self presents for worsening depression and frustration. Patient said that he took lithium post discharge for about 6 months but stopped it since his depression never got any better; stopping lithium did make his depression worse. He said that he has been struggling over the last few months with PTSD symptoms, flashbacks/memories of trauma which he does not talk about and keeps press down until it boils over and he gets angry and starts punching the brunson; he says he is crying frequently throughout the day and feeling excessively sad, but no SI. Initially patient skeptical that medications will help but after review of medications it seems that Latuda 40 mg may have started to be somewhat helpful and he agrees to restart increase further. Patient has not had any manic episodes even though off lithium; denies any alcohol or drug use other than cannabis. Formulation/clinical reasoning: Director Of Patient Safety reviewed chart and manic episodes were detailed. Patient has bipolar depression. It seems that lurasidone 40 mg started to help a little bit but he only took it for 2-3 months and it was never titrated further. He agrees to restart now. Discussed therapy, his experiences with it; discussed ECT, 02/28- Continue tx. 03/01 continue tx Plan: CV Q 15 minutes checks Start Latuda 20 mg q.h.s.; will quickly titrate to 40 mg leave it for few days and then increase further Continue amlodipine restarted for hypertension Patient educated on: therapeutic strategies Informed Consent: understands Reason for continued inpatient stay Substantial Risk for: harm to self and inability to function Time Spent With Patient Time: Total time managing care of this patient today ____ minutes.
[2024-03-01 20:00] VITALS: BP 154/72; PULSE 112; TEMP 36.5; O2SAT 98
[2024-03-02 08:16] VITALS: BP 138/77; PULSE 76; RESP 20; TEMP 2.7; TEMP 36.8; O2SAT 99
[2024-03-02 08:34] VITALS: BP 138/77
[2024-03-02] MEDS: lisinopriL 10 MG TABLET PO (08:34)
[2024-03-02 08:35] VITALS: BP 138/77
[2024-03-02] MEDS: amLODIPine Besylate 10 MG TABLET PO (08:35)
[2024-03-02] MEDS: Lurasidone HCl 40 MG TABLET PO (16:27)
--- NOTE | 2024-03-02 17:28 | HO.PSYCHPN ---
Subjective Subjective Date of Service: 03/02/24 Reason For Visit: Bipolar disorder PTSD Interim History: anxious, but says improving; also says depression improving; using prns to manage anxiety at times; no SI or HI Medication Compliance: Yes Side effects from medications: No Attending Groups: Intermittent Review of Systems Acute medical concerns: No Medical Review of Systems: unchanged Review of Systems Review of Systems Yes all other systems are reviewed and are negative Constitutional: Reports no additional constitutional complaints, Denies chills, Denies fever(s) and Denies night sweats Eyes: Reports no additional eye complaints, Denies blurry vision, Denies change in vision, Denies diplopia, Denies eye discharge, Denies loss of vision and Denies eye pain Denies dizziness Cardiovascular: Reports no additional cardiovascular complaints, Denies chest pain, Denies lightheadedness, Denies Loss of Consciousness and Denies dyspnea Respiratory: Reports no additional respiratory complaints and Denies dyspnea Gastrointestinal: Reports no additional gastrointestinal complaints, Denies abdominal pain, Denies melena, Denies hematochezia, Denies change in bowel habits and Denies change in stool character Genitourinary: Reports no additional male genitourinary complaints, Denies hematuria, Denies oliguria, Denies difficulty urinating, Denies dysuria, Denies urinary frequency, Denies urinary hesitancy, Denies urinary incontinence and Denies urinary urgency Musculoskeletal: Reports no additional musculoskeletal complaints, Denies numbness and Denies tingling Denies dizziness, Denies loss of vision, Denies numbness and Denies tingling Psychiatric: Reports hopelessness and Reports anhedonia Endocrine: Reports no additional endocrine complaints Hematologic/Lymphatic: Reports no additional hematologic/lymphatic complaints Allergic/Immunologic: Reports no additional allergic/immunologic complaints Mental Status Exam Mental Status Exam Narrative: Pt is alert and oriented; behavior is cooperative, mild anxious, patient is not in distress; dressed casually, pena but adequate hygiene; eye glasses; mood is described as ok and affect congruent downcast, flat eye contact avoidant; Speech is a little slow and a little soft; thought process is organized and goal directed; Thought content is on struggles, past trauma; tx; otherwise pertinent to relevant topics and without any delusional content, paranoid ideations or grandiosity; denies any SI/HI. There is no evidence of perceptual disturbance. Patients insight and judgment fair Patient Appearance: Appropriate Patient Orientation: Person, Place, Time and Situation Level of Consciousness: Alert Patient Behavior: Guarded, Talkative and Good Eye Contact Mood Description: Constricted Affect Description: Constricted Ability to Follow Directions: Good Speech Pattern: Spontaneous Speech Memory Description: Episodic Impaired Diagnostics Vital Signs (24Hr): Vital Signs - 24 hr 03/01/24 20:00 03/02/24 08:16 03/02/24 08:34 Temperature 97.7 F 36.8 F L Pulse Rate 112 H 76 Respiratory Rate 20 Blood Pressure 154/72 H 138/77 138/77 Pulse Oximetry 98 99 Oxygen Delivery Method Room Air Room Air 03/02/24 08:35 Temperature Pulse Rate Respiratory Rate Blood Pressure 138/77 Pulse Oximetry Oxygen Delivery Method BMI result Body Mass Index 39.5 Labs 02/27/24 12:41 02/27/24 12:41 Medications Medications Current Medications Acetaminophen (Acetaminophen 325 Mg Tablet) 650 mg PO Q6H PRN PRN Reason: Headache/Pain Mild Scale (1-3) Al Hydroxide/Mg Hydroxide (Magnesium Hydrox/Alum Hydrox 30 Ml Oral.Susp) 30 ml PO Q6H PRN PRN Reason: Heartburn/Nausea Amlodipine Besylate (Amlodipine Besylate 10 Mg Tablet) 10 mg PO DAILY [facility]; Protocol Last Admin: 03/02/24 08:35 Dose: 10 mg Clonidine HCl (Clonidine Hcl 0.1 Mg Tablet) 0.1 mg PO Q4H PRN; Protocol PRN Reason: mild anxiety/insomnia Last Admin: 02/29/24 16:48 Dose: 0.1 mg Hydroxyzine HCl (Hydroxyzine Hcl 25 Mg Tablet) 25 mg PO Q6H PRN PRN Reason: Anxiety Last Admin: 03/01/24 17:40 Dose: 25 mg Lisinopril (Lisinopril 10 Mg Tablet) 10 mg PO DAILY [facility]; Protocol Last Admin: 03/02/24 08:34 Dose: 10 mg Lurasidone HCl (Lurasidone Hcl 40 Mg Tablet) 40 mg PO DAILY@1700 YUE Last Admin: 03/02/24 16:27 Dose: 40 mg Magnesium Hydroxide (Milk Of Magnesia 30 Ml Oral.Susp) 30 ml PO DAILY PRN PRN Reason: Constipation Trazodone HCl (Trazodone Hcl 50 Mg Tablet) 50 mg PO BEDTIME MRX1 PRN PRN Reason: Insomnia Last Admin: 03/01/24 20:34 Dose: 50 mg Allergies Allergies Allergy/AdvReac Type Severity Reaction Status Date / Time No Known Allergies Allergy Verified 02/27/24 12:35 Assessment & Plan Assessment & Plan (1) Bipolar 1 disorder, depressed, severe: Status: Acute Code(s): F31.4 - Bipolar disorder, current episode depressed, severe, without psychotic features (2) PTSD (post-traumatic stress disorder): Status: Acute Code(s): F43.10 - Post-traumatic stress disorder, unspecified (3) Hypertension: Status: Acute Code(s): I10 - Essential (primary) hypertension Plan Patient is a 34-year-old male with history of bipolar disorder, PTSD who self presents for worsening depression and frustration. Patient said that he took lithium post discharge for about 6 months but stopped it since his depression never got any better; stopping lithium did make his depression worse. He said that he has been struggling over the last few months with PTSD symptoms, flashbacks/memories of trauma which he does not talk about and keeps press down until it boils over and he gets angry and starts punching the brunson; he says he is crying frequently throughout the day and feeling excessively sad, but no SI. Initially patient skeptical that medications will help but after review of medications it seems that Latuda 40 mg may have started to be somewhat helpful and he agrees to restart increase further. Patient has not had any manic episodes even though off lithium; denies any alcohol or drug use other than cannabis. Formulation/clinical reasoning: Foundation Maker reviewed chart and manic episodes were detailed. Patient has bipolar depression. It seems that lurasidone 40 mg started to help a little bit but he only took it for 2-3 months and it was never titrated further. He agrees to restart now. Discussed therapy, his experiences with it; discussed ECT, 02/28- Continue tx. 03/01 continue tx 03/02 continue tx Plan: CV Q 15 minutes checks Start Latuda 20 mg q.h.s.; will quickly titrate to 40 mg leave it for few days and then increase further Continue amlodipine restarted for hypertension Patient educated on: medication risk/benefits and therapeutic strategies Reason for continued inpatient stay Substantial Risk for: harm to self and inability to function Time Spent With Patient Time: Total time managing care of this patient today ____ minutes.
[2024-03-02] MEDS: hydrOXYzine HCL 25 MG TABLET PO (18:13)
[2024-03-02 19:58] VITALS: BP 132/72; PULSE 103; RESP 16; TEMP 36.9; O2SAT 96
[2024-03-02] MEDS: traZODone HCL 50 MG TABLET PO (21:48)
[2024-03-03 08:00] VITALS: BP 134/85; PULSE 97; RESP 16; TEMP 36.6; O2SAT 98
--- NOTE | 2024-03-03 09:30 | HO.PSYCHPN ---
Subjective Subjective Date of Service: 03/03/24 Reason For Visit: Bipolar disorder PTSD Interim History: met with patient; discussed with team; reviewed chart Patient reports that he is still depressed but feels level and he does say he feels better because he can tell he is much less angry which he is grateful for. He still struggles with intermittent crying spells; says he is able to cope, listening to music. He placed a 3 day notice feeling that he does not need to be on inpatient unit much longer but agrees to stay and have Latuda titrated which he has been tolerating. Mental Status Exam Mental Status Exam Narrative: Pt is alert and oriented; behavior is cooperative, calm; patient is not in distress; dressed in hospital attire with adequate hygiene; eye glasses; mood is described as depressed... but level...less angry and affect congruent, more calm, brighter; intermittently tearful; eye contact appropriate; Speech is normal volume, rate and prosody; some mild psychomotor retardation present; thought process is organized and goal directed; Thought content is on treatment, as well as struggles, past trauma; otherwise pertinent to relevant topics and without any delusional content, paranoid ideations or grandiosity; denies any SI/HI. There is no evidence of perceptual disturbance. Patients insight and judgment much improved and fair Diagnostics Vital Signs (24Hr): Vital Signs - 24 hr 03/02/24 19:58 Temperature 98.4 F Pulse Rate 103 H Respiratory Rate 16 Blood Pressure 132/72 Pulse Oximetry 96 Oxygen Delivery Method Room Air BMI result Body Mass Index 39.5 Labs 02/27/24 12:41 02/27/24 12:41 Medications Medications Current Medications Acetaminophen (Acetaminophen 325 Mg Tablet) 650 mg PO Q6H PRN PRN Reason: Headache/Pain Mild Scale (1-3) Al Hydroxide/Mg Hydroxide (Magnesium Hydrox/Alum Hydrox 30 Ml Oral.Susp) 30 ml PO Q6H PRN PRN Reason: Heartburn/Nausea Amlodipine Besylate (Amlodipine Besylate 10 Mg Tablet) 10 mg PO DAILY [facility]; Protocol Last Admin: 03/02/24 08:35 Dose: 10 mg Clonidine HCl (Clonidine Hcl 0.1 Mg Tablet) 0.1 mg PO Q4H PRN; Protocol PRN Reason: mild anxiety/insomnia Last Admin: 02/29/24 16:48 Dose: 0.1 mg Hydroxyzine HCl (Hydroxyzine Hcl 25 Mg Tablet) 25 mg PO Q6H PRN PRN Reason: Anxiety Last Admin: 03/02/24 18:13 Dose: 25 mg Lisinopril (Lisinopril 10 Mg Tablet) 10 mg PO DAILY [facility]; Protocol Last Admin: 03/02/24 08:34 Dose: 10 mg Lurasidone HCl (Lurasidone Hcl 40 Mg Tablet) 40 mg PO DAILY@1700 YUE Last Admin: 03/02/24 16:27 Dose: 40 mg Magnesium Hydroxide (Milk Of Magnesia 30 Ml Oral.Susp) 30 ml PO DAILY PRN PRN Reason: Constipation Trazodone HCl (Trazodone Hcl 50 Mg Tablet) 50 mg PO BEDTIME MRX1 PRN PRN Reason: Insomnia Last Admin: 03/02/24 21:48 Dose: 50 mg Allergies Allergies Allergy/AdvReac Type Severity Reaction Status Date / Time No Known Allergies Allergy Verified 02/27/24 12:35 Assessment & Plan Assessment & Plan (1) Bipolar 1 disorder, depressed, severe: Status: Acute Code(s): F31.4 - Bipolar disorder, current episode depressed, severe, without psychotic features (2) PTSD (post-traumatic stress disorder): Status: Acute Code(s): F43.10 - Post-traumatic stress disorder, unspecified (3) Hypertension: Status: Acute Code(s): I10 - Essential (primary) hypertension Plan Patient is a 34-year-old male with history of bipolar disorder, PTSD who self presents for worsening depression and frustration. Patient said that he took lithium post discharge for about 6 months but stopped it since his depression never got any better; stopping lithium did make his depression worse. He said that he has been struggling over the last few months with PTSD symptoms, flashbacks/memories of trauma which he does not talk about and keeps press down until it boils over and he gets angry and starts punching the brunson; he says he is crying frequently throughout the day and feeling excessively sad, but no SI. Initially patient skeptical that medications will help but after review of medications it seems that Latuda 40 mg may have started to be somewhat helpful and he agrees to restart increase further. Patient has not had any manic episodes even though off lithium; denies any alcohol or drug use other than cannabis. Formulation/clinical reasoning: Market Development Executive reviewed chart and manic episodes were detailed. Patient has bipolar depression. It seems that lurasidone 40 mg started to help a little bit but he only took it for 2-3 months and it was never titrated further. He agrees to restart now. Discussed therapy, his experiences with it; discussed ECT, 02/28- Continue tx. 03/01 continue tx 03/03 Patient reports that he is still depressed but feels level and he does say he feels better because he can tell he is much less angry which he is grateful for and says this is the main reason he came in. He still struggles with intermittent crying spells; says he is able to cope, listening to music. He placed a 3 day notice feeling that he does not need to be on inpatient unit much longer but agrees to stay and have Latuda titrated which he has been tolerating. Patient was on 40 mg in the past which seemed to be on the cusp of starting to help; given long history of problematic depression and anxiety patient may benefit from further titration. -reviewed blood pressures and hypertension seems to be resolving; will continue to monitor Plan: 3 day notice Q 15 minutes checks Increase to Latuda 60 mg q.h.s.; Continue amlodipine restarted for hypertension Patient educated on: diagnosis and medication risk/benefits Informed Consent: understands Reason for continued inpatient stay Substantial Risk for: stable for discharge Time Spent With Patient Time: Total time managing care of this patient today ____ minutes.
[2024-03-03] MEDS: lisinopriL 10 MG TABLET PO (09:34)
[2024-03-03] MEDS: amLODIPine Besylate 10 MG TABLET PO (09:34)
[2024-03-03] MEDS: Lurasidone HCl 20 MG TABLET 60 MG PO (16:43)
[2024-03-03 20:00] VITALS: BP 132/56; PULSE 104; RESP 18; TEMP 36.5; O2SAT 98
[2024-03-03] MEDS: traZODone HCL 50 MG TABLET PO (21:09)
[2024-03-04 09:01] VITALS: BP 132/72; PULSE 88; RESP 17; TEMP 36.4; O2SAT 99
[2024-03-04 09:03] VITALS: BP 132/72
[2024-03-04] MEDS: lisinopriL 10 MG TABLET PO (09:03)
[2024-03-04 09:04] VITALS: BP 132/72
[2024-03-04] MEDS: amLODIPine Besylate 10 MG TABLET PO (09:04)
[2024-03-04] MEDS: Lurasidone HCl 20 MG TABLET 60 MG PO (17:06)
--- NOTE | 2024-03-04 17:54 | P.PNPSI_ITS ---
Subjective Subjective Date of Service: 03/04/24 Reason For Visit: Bipolar disorder PTSD Interim History: Met with patient and SW together; discussed with team pt says he feels mostly the same; discussed with pt his mothers concerns about his anger. Pt has expressed some hopelessness about meds/therapy making much long lasting difference. Research Development Manager discussed digging deeper into hx and pt agrees to reconsider his 3 day notice. Mental Status Exam Mental Status Exam Narrative: Pt is alert and oriented; behavior is cooperative, calm; patient is not in distress; dressed in hospital attire with adequate hygiene; eye glasses; mood is described as little better and affect congruent, more calm, brighterl; eye contact appropriate; Speech is normal volume, rate and prosody; no psychomotor retardation present; thought process is organized and goal directed; Thought content is on treatment, as well as struggles, past trauma; otherwise pertinent to relevant topics and without any delusional content, paranoid ideations or grandiosity; denies any SI/HI. There is no evidence of perceptual disturbance. Patients insight and judgment fair. Diagnostics Vital Signs (24Hr): Vital Signs - 24 hr 03/03/24 20:00 03/04/24 09:01 03/04/24 09:03 Temperature 97.7 F 97.5 F Pulse Rate 104 H 88 Respiratory Rate 18 17 Blood Pressure 132/56 L 132/72 132/72 Pulse Oximetry 98 99 Oxygen Delivery Method Room Air Room Air 03/04/24 09:04 Temperature Pulse Rate Respiratory Rate Blood Pressure 132/72 Pulse Oximetry Oxygen Delivery Method BMI result Body Mass Index 39.5 Labs 02/27/24 12:41 02/27/24 12:41 Medications Medications Current Medications Acetaminophen (Acetaminophen 325 Mg Tablet) 650 mg PO Q6H PRN PRN Reason: Headache/Pain Mild Scale (1-3) Al Hydroxide/Mg Hydroxide (Magnesium Hydrox/Alum Hydrox 30 Ml Oral.Susp) 30 ml PO Q6H PRN PRN Reason: Heartburn/Nausea Amlodipine Besylate (Amlodipine Besylate 10 Mg Tablet) 10 mg PO DAILY [facility]; Protocol Last Admin: 03/04/24 09:04 Dose: 10 mg Clonidine HCl (Clonidine Hcl 0.1 Mg Tablet) 0.1 mg PO Q4H PRN; Protocol PRN Reason: mild anxiety/insomnia Last Admin: 02/29/24 16:48 Dose: 0.1 mg Hydroxyzine HCl (Hydroxyzine Hcl 25 Mg Tablet) 25 mg PO Q6H PRN PRN Reason: Anxiety Last Admin: 03/02/24 18:13 Dose: 25 mg Lisinopril (Lisinopril 10 Mg Tablet) 10 mg PO DAILY [facility]; Protocol Last Admin: 03/04/24 09:03 Dose: 10 mg Lurasidone HCl (Lurasidone Hcl 20 Mg Tablet) 60 mg PO DAILY@1700 YUE Last Admin: 03/04/24 17:06 Dose: 60 mg Magnesium Hydroxide (Milk Of Magnesia 30 Ml Oral.Susp) 30 ml PO DAILY PRN PRN Reason: Constipation Trazodone HCl (Trazodone Hcl 50 Mg Tablet) 50 mg PO BEDTIME MRX1 PRN PRN Reason: Insomnia Last Admin: 03/03/24 21:09 Dose: 50 mg Allergies Allergies Allergy/AdvReac Type Severity Reaction Status Date / Time No Known Allergies Allergy Verified 02/27/24 12:35 Assessment & Plan Assessment & Plan (1) Bipolar 1 disorder, depressed, severe: Status: Acute Code(s): F31.4 - Bipolar disorder, current episode depressed, severe, without psychotic features (2) PTSD (post-traumatic stress disorder): Status: Acute Code(s): F43.10 - Post-traumatic stress disorder, unspecified (3) Hypertension: Status: Acute Code(s): I10 - Essential (primary) hypertension Plan Patient is a 34-year-old male with history of bipolar disorder, PTSD who self presents for worsening depression and frustration. Patient said that he took lithium post discharge for about 6 months but stopped it since his depression never got any better; stopping lithium did make his depression worse. He said that he has been struggling over the last few months with PTSD symptoms, flashbacks/memories of trauma which he does not talk about and keeps press down until it boils over and he gets angry and starts punching the brunson; he says he is crying frequently throughout the day and feeling excessively sad, but no SI. Initially patient skeptical that medications will help but after review of medications it seems that Latuda 40 mg may have started to be somewhat helpful and he agrees to restart increase further. Patient has not had any manic episodes even though off lithium; denies any alcohol or drug use other than cannabis. Formulation/clinical reasoning: Research Development Manager reviewed chart and manic episodes were detailed. Patient has bipolar depression. It seems that lurasidone 40 mg started to help a little bit but he only took it for 2-3 months and it was never titrated further. He agrees to restart now. Discussed therapy, his experiences with it; discussed ECT, 02/28- Continue tx. 03/01 continue tx 03/03 Patient reports that he is still depressed but feels level and he does say he feels better because he can tell he is much less angry which he is grateful for and says this is the main reason he came in. He still struggles with intermittent crying spells; says he is able to cope, listening to music. He placed a 3 day notice feeling that he does not need to be on inpatient unit much longer but agrees to stay and have Latuda titrated which he has been tolerating. Patient was on 40 mg in the past which seemed to be on the cusp of starting to help; given long history of problematic depression and anxiety patient may benefit from further titration. -reviewed blood pressures and hypertension seems to be resolving; will continue to monitor 03/04 considering retracting 3 day; not sure if Latuda 60mg is tolerable; mom concerned about his anger Plan: 3 day notice Q 15 minutes checks Increase to Latuda 60 mg q.h.s.; Continue amlodipine restarted for hypertension Patient educated on: diagnosis, medication risk/benefits and therapeutic strategies Informed Consent: understands and further education needed Reason for continued inpatient stay Substantial Risk for: rapid decompensation Time Spent With Patient Time: Total time managing care of this patient today ____ minutes.
[2024-03-04 20:00] VITALS: BP 130/63; PULSE 107; RESP 17; TEMP 36.9; O2SAT 98
[2024-03-04] MEDS: traZODone HCL 50 MG TABLET PO (23:30)
[2024-03-05] MEDS: lisinopriL 10 MG TABLET PO (08:59)
[2024-03-05] MEDS: amLODIPine Besylate 10 MG TABLET PO (08:59)
[2024-03-05 09:00] VITALS: BP 145/95; PULSE 90; RESP 16; TEMP 36.3; O2SAT 100
[2024-03-05] MEDS: Lurasidone HCl 40 MG TABLET PO (16:46)
[2024-03-05] MEDS: traZODone HCL 50 MG TABLET PO (20:20)
[2024-03-05 21:00] VITALS: BP 137/91; PULSE 110; RESP 16; TEMP 37.1; O2SAT 99
--- NOTE | 2024-03-05 22:00 | P.PNPSI_ITS ---
Subjective Subjective Date of Service: 03/05/24 Reason For Visit: Bipolar disorder PTSD Interim History: met w/ pt; discussed with team discussed history in detail and uncovered that since a young age patient found himself alone and lonely and his coping skill was to accept this as his fate; when he moved to [place] he'd dropped out of college and was smoking cannabis regularly and for the next 10 years, could not seem to break out of his depression and terrible belief that he'll always be alone in this world; subsequently he's remained hopeless and skeptical of tx. Also discussed Bipolar depression and treatments including medication and ECT. Pt felt it was helpful to review his life in such detail; he was open to discussing approach to treatment and agrees with committing to therapy and medication. feels Latuda 60mg causing anxiety and wants to go back to 40mg; does not want to augment. Diagnostics Vital Signs (24Hr): Vital Signs - 24 hr 03/05/24 09:00 03/05/24 21:00 Temperature 97.3 F 98.7 F Pulse Rate 90 110 H Respiratory Rate 16 16 Blood Pressure 145/95 H 137/91 H Pulse Oximetry 100 99 Oxygen Delivery Method Room Air Room Air BMI result Body Mass Index 39.5 Labs 02/27/24 12:41 02/27/24 12:41 Medications Medications Current Medications Acetaminophen (Acetaminophen 325 Mg Tablet) 650 mg PO Q6H PRN PRN Reason: Headache/Pain Mild Scale (1-3) Al Hydroxide/Mg Hydroxide (Magnesium Hydrox/Alum Hydrox 30 Ml Oral.Susp) 30 ml PO Q6H PRN PRN Reason: Heartburn/Nausea Amlodipine Besylate (Amlodipine Besylate 10 Mg Tablet) 10 mg PO DAILY YUE; Protocol Last Admin: 03/05/24 08:59 Dose: 10 mg Clonidine HCl (Clonidine Hcl 0.1 Mg Tablet) 0.1 mg PO Q4H PRN; Protocol PRN Reason: mild anxiety/insomnia Last Admin: 02/29/24 16:48 Dose: 0.1 mg Hydroxyzine HCl (Hydroxyzine Hcl 25 Mg Tablet) 25 mg PO Q6H PRN PRN Reason: Anxiety Last Admin: 03/02/24 18:13 Dose: 25 mg Lisinopril (Lisinopril 10 Mg Tablet) 10 mg PO DAILY YUE; Protocol Last Admin: 03/05/24 08:59 Dose: 10 mg Lurasidone HCl (Lurasidone Hcl 40 Mg Tablet) 40 mg PO DAILY@1700 YUE Last Admin: 03/05/24 16:46 Dose: 40 mg Magnesium Hydroxide (Milk Of Magnesia 30 Ml Oral.Susp) 30 ml PO DAILY PRN PRN Reason: Constipation Trazodone HCl (Trazodone Hcl 50 Mg Tablet) 50 mg PO BEDTIME MRX1 PRN PRN Reason: Insomnia Last Admin: 03/05/24 20:20 Dose: 50 mg Allergies Allergies Allergy/AdvReac Type Severity Reaction Status Date / Time No Known Allergies Allergy Verified 02/27/24 12:35 Assessment & Plan Assessment & Plan (1) Bipolar 1 disorder, depressed, severe: Status: Acute Code(s): F31.4 - Bipolar disorder, current episode depressed, severe, without psychotic features (2) PTSD (post-traumatic stress disorder): Status: Acute Code(s): F43.10 - Post-traumatic stress disorder, unspecified (3) Hypertension: Status: Acute Code(s): I10 - Essential (primary) hypertension Plan Patient is a 34-year-old male with history of bipolar disorder, PTSD who self presents for worsening depression and frustration. Patient said that he took lithium post discharge for about 6 months but stopped it since his depression never got any better; stopping lithium did make his depression worse. He said that he has been struggling over the last few months with PTSD symptoms, flashbacks/memories of trauma which he does not talk about and keeps press down until it boils over and he gets angry and starts punching the brunson; he says he is crying frequently throughout the day and feeling excessively sad, but no SI. Initially patient skeptical that medications will help but after review of medications it seems that Latuda 40 mg may have started to be somewhat helpful and he agrees to restart increase further. Patient has not had any manic episodes even though off lithium; denies any alcohol or drug use other than cannabis. 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 Patient has bipolar depression. It seems that lurasidone 40 mg started to help a little bit but he only took it for 2-3 months and it was never titrated further. He agrees to restart now. Discussed therapy, his experiences with it; discussed ECT, 02/28- Continue tx. 03/01 continue tx 03/03 Patient reports that he is still depressed but feels level and he does say he feels better because he can tell he is much less angry which he is grateful for and says this is the main reason he came in. He still struggles with intermittent crying spells; says he is able to cope, listening to music. He placed a 3 day notice feeling that he does not need to be on inpatient unit much longer but agrees to stay and have Latuda titrated which he has been tolerating. Patient was on 40 mg in the past which seemed to be on the cusp of starting to help; given long history of problematic depression and anxiety patient may benefit from further titration. -reviewed blood pressures and hypertension seems to be resolving; will continue to monitor 03/04 considering retracting 3 day; not sure if Latuda 60mg is tolerable; mom concerned about his anger 03/05 much more open about hx and to treatment; agrees to restart therapy Plan: cv Q 15 minutes checks lower back to Latuda 40 mg q.h.s.; higher dose causing some anxiety Continue amlodipine restarted for hypertension Patient educated on: diagnosis, medication risk/benefits, ECT and therapeutic strategies Informed Consent: understands Reason for continued inpatient stay Substantial Risk for: rapid decompensation and med/psych decompensation Time Spent With Patient Time: Total time managing care of this patient today ____ minutes.
[2024-03-06 07:00] VITALS: BMI 39.2
[2024-03-06] MEDS: lisinopriL 10 MG TABLET PO (08:19)
[2024-03-06] MEDS: amLODIPine Besylate 10 MG TABLET PO (08:19)
[2024-03-06 08:30] VITALS: BP 150/91; PULSE 100; RESP 16; TEMP 36.5; O2SAT 100
--- NOTE | 2024-03-06 16:12 | P.PNPSI_ITS ---
Subjective Subjective Date of Service: 03/06/24 Reason For Visit: Bipolar disorder PTSD Interim History: Met with patient; discussed with team Patient reports that he is feeling much better and that he is actually optimistic for the 1st time. He has plans to get his mother her own DAY HABILITATION SUPERVISOR so that they can just have a mother son relationship; patient feels it is time for him to focus more on his own life and on pursuing his own happiness. Patient feels ready for discharge. He agrees it was good to stay longer on the unit feeling that doing so accomplish something important. Mental Status Exam Mental Status Exam Narrative: Pt is alert and oriented; behavior is cooperative, calm; patient is not in distress; dressed in hospital attire with adequate hygiene; eye glasses; mood is described as good and affect congruent, more calm, brighter; eye contact appropriate; Speech is normal volume, rate and prosody; no psychomotor retardation present; thought process is organized and goal directed; Thought content is on treatment, as well as struggles, past trauma; otherwise pertinent to relevant topics and without any delusional content, paranoid ideations or grandiosity; denies any SI/HI. There is no evidence of perceptual disturbance. Patients insight and judgment fair. Diagnostics Vital Signs (24Hr): Vital Signs - 24 hr 03/05/24 21:00 03/06/24 08:30 Temperature 98.7 F 97.7 F Pulse Rate 110 H 100 Respiratory Rate 16 16 Blood Pressure 137/91 H 150/91 H Pulse Oximetry 99 100 Oxygen Delivery Method Room Air Room Air BMI result Body Mass Index 39.2 Labs 02/27/24 12:41 02/27/24 12:41 Medications Medications Current Medications Acetaminophen (Acetaminophen 325 Mg Tablet) 650 mg PO Q6H PRN PRN Reason: Headache/Pain Mild Scale (1-3) Al Hydroxide/Mg Hydroxide (Magnesium Hydrox/Alum Hydrox 30 Ml Oral.Susp) 30 ml PO Q6H PRN PRN Reason: Heartburn/Nausea Amlodipine Besylate (Amlodipine Besylate 10 Mg Tablet) 10 mg PO DAILY [facility]; Protocol Last Admin: 03/06/24 08:19 Dose: 10 mg Clonidine HCl (Clonidine Hcl 0.1 Mg Tablet) 0.1 mg PO Q4H PRN; Protocol PRN Reason: mild anxiety/insomnia Last Admin: 02/29/24 16:48 Dose: 0.1 mg Hydroxyzine HCl (Hydroxyzine Hcl 25 Mg Tablet) 25 mg PO Q6H PRN PRN Reason: Anxiety Last Admin: 03/02/24 18:13 Dose: 25 mg Lisinopril (Lisinopril 10 Mg Tablet) 10 mg PO DAILY [facility]; Protocol Last Admin: 03/06/24 08:19 Dose: 10 mg Lurasidone HCl (Lurasidone Hcl 40 Mg Tablet) 40 mg PO DAILY@1700 YUE Last Admin: 03/05/24 16:46 Dose: 40 mg Magnesium Hydroxide (Milk Of Magnesia 30 Ml Oral.Susp) 30 ml PO DAILY PRN PRN Reason: Constipation Trazodone HCl (Trazodone Hcl 50 Mg Tablet) 50 mg PO BEDTIME MRX1 PRN PRN Reason: Insomnia Last Admin: 03/05/24 20:20 Dose: 50 mg Allergies Allergies Allergy/AdvReac Type Severity Reaction Status Date / Time No Known Allergies Allergy Verified 02/27/24 12:35 Assessment & Plan Assessment & Plan (1) Bipolar 1 disorder, depressed, severe: Status: Acute Code(s): F31.4 - Bipolar disorder, current episode depressed, severe, without psychotic features (2) PTSD (post-traumatic stress disorder): Status: Acute Code(s): F43.10 - Post-traumatic stress disorder, unspecified (3) Hypertension: Status: Acute Code(s): I10 - Essential (primary) hypertension Plan Patient is a 34-year-old male with history of bipolar disorder, PTSD who self presents for worsening depression and frustration. Patient said that he took lithium post discharge for about 6 months but stopped it since his depression never got any better; stopping lithium did make his depression worse. He said that he has been struggling over the last few months with PTSD symptoms, flashbacks/memories of trauma which he does not talk about and keeps press down until it boils over and he gets angry and starts punching the brunson; he says he is crying frequently throughout the day and feeling excessively sad, but no SI. Initially patient skeptical that medications will help but after review of medications it seems that Latuda 40 mg may have started to be somewhat helpful and he agrees to restart increase further. Patient has not had any manic episodes even though off lithium; denies any alcohol or drug use other than cannabis. 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 Patient has bipolar depression. It seems that lurasidone 40 mg started to help a little bit but he only took it for 2-3 months and it was never titrated further. He agrees to restart now. Discussed therapy, his experiences with it; discussed ECT, 02/28- Continue tx. 03/01 continue tx 03/03 Patient reports that he is still depressed but feels level and he does say he feels better because he can tell he is much less angry which he is grateful for and says this is the main reason he came in. He still struggles with intermittent crying spells; says he is able to cope, listening to music. He placed a 3 day notice feeling that he does not need to be on inpatient unit much longer but agrees to stay and have Latuda titrated which he has been tolerating. Patient was on 40 mg in the past which seemed to be on the cusp of starting to help; given long history of problematic depression and anxiety patient may benefit from further titration. -reviewed blood pressures and hypertension seems to be resolving; will continue to monitor 03/04 considering retracting 3 day; not sure if Latuda 60mg is tolerable; mom concerned about his anger 03/05 much more open about hx and to treatment; agrees to restart therapy 03/06 Patient reports that he is feeling much better and that he is actually optimistic for the 1st time. He has plans to get his mother her own DAY HABILITATION SUPERVISOR so that they can just have a mother son relationship; patient feels it is time for him to focus more on his own life and on pursuing his own happiness. Patient feels ready for discharge. He agrees it was good to stay longer on the unit feeling that doing so accomplish something important. -patient is not in imminent risk for harm to self or others and appropriate to return to the community for treatment. Plan: cv Q 15 minutes checks lower back to Latuda 40 mg q.h.s.; higher dose causing some anxiety Continue amlodipine restarted for hypertension Patient educated on: diagnosis, medication risk/benefits and therapeutic strategies Informed Consent: understands Reason for continued inpatient stay Substantial Risk for: stable for discharge Time Spent With Patient Time: Total time managing care of this patient today ____ minutes.
[2024-03-06] MEDS: Lurasidone HCl 40 MG TABLET PO (17:03)
[2024-03-06 20:00] VITALS: BP 143/76; PULSE 102; RESP 18; TEMP 36.4; O2SAT 97
[2024-03-06] MEDS: traZODone HCL 50 MG TABLET PO (20:57)
--- NOTE | 2024-03-06 22:50 | PM.PSYDC ---
DS: Providers Provider Date of Service: 03/07/24 Date of admission: 02/27/24 15:36 Date of discharge: 03/07/24 Primary care physician: Unknown Physician Attending physician on admission: Zeus Mckeon Attending physician on discharge: Zeus Mckeon DS: Diagnosis Discharge Diagnosis (1) Bipolar 1 disorder, depressed, severe: Status: Acute (2) PTSD (post-traumatic stress disorder): Status: Acute (3) Hypertension: Status: Acute DS: Medications Discharge Medications Home Medications: Previous Rx's ?Medication ?Instructions ?Recorded amlodipine 10 mg tablet 10 mg PO DAILY 30 days #30 tabs 03/06/24 lisinopril 10 mg tablet 10 mg PO DAILY 30 days #30 tabs 03/06/24 lurasidone 40 mg tablet (Latuda) 40 mg PO DAILY@1700 30 days #30 03/06/24 tabs trazodone 50 mg tablet 50 mg PO BEDTIME PRN Insomnia 30 03/06/24 days #30 tabs Mental Status Exam Mental Status Exam Narrative: Pt is alert and oriented; behavior is cooperative, calm; patient is not in distress; dressed in casual attire with adequate hygiene; eye glasses; mood is described as good and affect congruent, more calm, brighter; eye contact appropriate; Speech is normal volume, rate and prosody; no psychomotor retardation present; thought process is organized and goal directed; Thought content is on treatment, as well as struggles, past trauma; otherwise pertinent to relevant topics and without any delusional content, paranoid ideations or grandiosity; denies any SI/HI. There is no evidence of perceptual disturbance. Patients insight and judgment fair. DS: Summary Hospital Course Hospital Course: HPI: Patient is a 34-year-old male with history of bipolar disorder, PTSD who self presents for worsening depression and frustration. Patient said that he took lithium post discharge for about 6 months but stopped it since his depression never got any better; stopping lithium did make his depression worse. He said that he has been struggling over the last few months with PTSD symptoms, flashbacks/memories of trauma which he does not talk about and keeps press down until it boils over and he gets angry and starts punching the brunson; he says he is crying frequently throughout the day and feeling excessively sad, but no SI. Initially patient skeptical that medications will help but after review of medications it seems that Latuda 40 mg may have started to be somewhat helpful and he agrees to restart increase further. Patient has not had any manic episodes even though off lithium; denies any alcohol or drug use other than cannabis. 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 Patient has bipolar depression. It seems that lurasidone 40 mg started to help a little bit but he only took it for 2-3 months and it was never titrated further. He agrees to restart now. Discussed therapy, his experiences with it; discussed ECT which he is not open to. Patient demonstrated thinking that included some learned helplessness Hospital course: On admission Patient depressed on admission but no SI. He says anger has been a problem which is why came in, feeling he needed help controlling it. Patient has thus far been with good behavioral and impulse control. He agrees to restart Latuda and titrated to 40 mg. 03/03 Patient reports that he is still depressed but feels level and he does say he feels better because he can tell he is much less angry which he is grateful for and says this is the main reason he came in. He still struggles with intermittent crying spells; says he is able to cope, listening to music. He placed a 3 day notice feeling that he does not need to be on inpatient unit much longer but agrees to stay and have Latuda titrated which he has been tolerating. Patient was on 40 mg in the past which seemed to be on the cusp of starting to help; given long history of problematic depression and anxiety patient may benefit from further titration. -reviewed blood pressures and hypertension seems to be resolving; will continue to monitor 03/04 feels that Latuda 60mg is causing anxiety and would like to go down to 40 mg; mom concerned about his anger 03/05 retracted 3 day and engaged in detailed hx which helped him make connections between his childhood and teenage experiences and history of depression and anger; agrees to restart therapy 03/06 Patient reports that he is feeling much better and that he is actually optimistic for the 1st time. He has plans to get his mother her own CLINICAL DOCUMENTATION SPECIALIST so that they can just have a mother son relationship; patient feels it is time for him to focus more on his own life and on pursuing his own happiness. Patient feels ready for discharge. He agrees it was good to stay longer on the unit feeling that doing so accomplish something important. -patient's mom visited him on the unit. On day of discharge, patient remained in good mood, optimistic and thankful for help received. Patient has remained in good behavioral and impulse control throughout his time in the unit, polite and appropriate with peers and staff. He is not in imminent risk for harm to self or others and appropriate to return to the community for treatment. His request for discharge honored. Medication: Latuda 40 mg q.h.s. Time spent discussing smoking cessation with patient: 3 to 10 minutes Status at Discharge Functional status at discharge: independent ambulation Overall status at discharge: patient is back to baseline Time Spent with Patient Time attestation: Total time managing care of this patient today 40____ minutes. Time spent: Greater than 30 minutes Discharge Plan Discharge Anticipated Discharge Date/Time: 03/07/24 11:00 Patient Disposition: Home, Self-Care Discharge Diagnosis: Bipolar Depression Referrals: [facility] Walk-In Appt for Psychiatry and Therapy [Other] - 3-5 Days (Walk in Hours 10-12 M-F Bring your Green Envelope w discharge paperwork in it. ) [facility] Walk-In Appt for Psychiatry and Therapy [Other] - 3-5 Days (Walk-in Hours 8am-8pm M-F 9am-5pm Saturdays Bring your Green Envelope w discharge paperwork in it. ) Physician,Unknown J [Primary Care Provider] - 1 Week Discharge Medications: New amlodipine 10 mg Tablet 10 mg PO DAILY 30 Days Qty: 30 1RF Protocol: Hold for SBP< HOLD for SBP < : 90 lisinopril 10 mg Tablet 10 mg PO DAILY 30 Days Qty: 30 1RF Protocol: Hold for SBP< HOLD for SBP < : 90 lurasidone [Latuda] 40 mg Tablet 40 mg PO DAILY@1700 30 Days Qty: 30 1RF trazodone 50 mg Tablet 50 mg PO BEDTIME PRN (Reason: Insomnia) 30 Days Qty: 30 1RF Discharge Orders: Discharge Order (Routine); Ordered 03/06/24 Ordered By: Zeus Mckeon Diet: Regular diet Activity on Discharge: As tolerated Stand Alone Forms: Patient Portal Discharge page, Community Support Print Language: Bulgarian Care Plan Goals: Maintain mood and safe behaviors Take medications as prescribed Continue to pursue sobriety from cannabis Practice coping skills Continue with outpatient providers and reach out to them as needed Health Concerns: Mood stability and behaviors Hypertension Plan of Treatment: Follow up with your PCP, psychiatric provider and other outpatient providers regarding above concerns Take medications as prescribed Assessment: Risk assessment at time of discharge:? Patient was interviewed prior to discharge and found to be fully oriented and without any SI or HI. Patient has improved insight and judgment and wants to continue treatment. Patient is not in imminent risk of harm to self or others and has a safety plan that includes presenting to the closest ER or calling 911 if feeling unsafe.? Patient has been observed closely by nursing and unit staff throughout admission; patient has not engaged in any behaviors that suggest dangerousness to self or others and has demonstrated appropriate behaviors and impulse control Discharge Date/Time: 03/07/24 11:44
[2024-03-07 08:00] VITALS: BP 193/100; PULSE 91; RESP 16; TEMP 36.9; O2SAT 100
[2024-03-07] MEDS: lisinopriL 10 MG TABLET PO (08:54)
[2024-03-07] MEDS: amLODIPine Besylate 10 MG TABLET PO (08:55)
[2024-03-07 09:56] VITALS: BP 122/71; PULSE 95
== END 2024-03-07 11:44 | disposition home or self-care (01) | DRG 753 ==
LOC: HO.ED 14:00 → HO.PM5 15:44
PROVIDERS: Admitting Provider Clinical Nurse Specialist Psychiatric/Mental Health, Adult; Emergency Provider Emergency Medicine; Visit Provider Psychiatry & Neurology Psychiatry
DX: F31.4 Bipolar disorder, current episode depressed, severe, without psychotic features (principal); F43.10 Post-traumatic stress disorder, unspecified; I10 Essential (primary) hypertension; Z20.822 Contact with and (suspected) exposure to COVID-19; Z87.891 Personal history of nicotine dependence; Z79.899 Other long term (current) drug therapy
CPT/HCPCS: 80053; 80307; 81003; 85025; 87635; 93005; 99285; S9485

== ENCOUNTER 2024-02-27 15:36 | Outpatient (BNV) | payer SELFPAY | END 2024-02-27 17:44 | PROVIDERS: Admitting Provider Clinical Nurse Specialist Psychiatric/Mental Health, Adult; Emergency Provider Emergency Medicine; Visit Provider Internal Medicine Cardiovascular Disease | DX: I10 Essential (primary) hypertension (principal) | CPT/HCPCS: 93010 ==

== ENCOUNTER → 2024-02-27 15:36 | Outpatient (BNV) | payer MEDICAID, OTHER, SELFPAY | PROVIDERS: Admitting Provider Clinical Nurse Specialist Psychiatric/Mental Health, Adult; Emergency Provider Emergency Medicine; Visit Provider Psychiatry & Neurology Psychiatry | DX: F31.4 Bipolar disorder, current episode depressed, severe, without psychotic features (principal); F43.11 Post-traumatic stress disorder, acute; I10 Essential (primary) hypertension | CPT/HCPCS: 99222; 99231; 99232 ==